=== PATIENT | female | born 1945 | race Caucasian/White ===

== ENCOUNTER 2020-09-29 15:50 | Outpatient (REF) | payer MEDICARE, SELFPAY ==
--- NOTE | 2020-09-29 15:55 | MM_ITS ---
EXAMINATION: MM SCREENING DIGITAL BREAST TOMOSYNTHESIS, BILATERAL CLINICAL INFORMATION: Bilateral invasive ductal cancer status post right lumpectomy 2012 and left lumpectomy 2009. Due for yearly. COMPARISON: Mammography: 09/20/2019, 09/14/2018, 09/12/2017 TECHNIQUE: Digital breast tomosynthesis is performed in both the craniocaudal and mediolateral oblique views along with computer-aided detection (CAD). Synthesized 2D images are generated from the tomosynthesis. Additional exaggerated left CC view is provided. FINDINGS: There are scattered areas of fibroglandular density (ACR BI-RADS breast composition Category b). Parenchymal pattern is similar to prior exams. There is no interval mass or architectural abnormality or abnormal calcifications. Again, left breast is slightly smaller with stable scarring inferior aspect. The right breast has stable nodule upper outer quadrant and a benign heavily calcified mass anterior upper outer right breast. No significant changes from prior studies. MM/MM tomosynthesis screening BI IMPRESSION: No significant changes from prior exams. ASSESSMENT: BI-RADS 2: Benign RECOMMENDATION: Routine annual mammography screening. This patient's information was entered into a reminder system with a target due date for their next mammogram.
== END 2020-09-29 15:51 | disposition home or self-care (01) ==
LOC: HO.MAMMO 15:50
PROVIDERS: PCP Internal Medicine; Visit Provider Surgery
DX: Z12.31 Encounter for screening mammogram for malignant neoplasm of breast (principal)
CPT/HCPCS: 77063; 77067

== ENCOUNTER 2020-11-19 09:29 | Outpatient (REF) | payer MEDICARE, SELFPAY ==
[2020-11-19 10:11] LABS: MANUAL DIFF FLAG NO
[2020-11-19 10:19] LABS: Basophils Percent Auto 0.5 % (0-2); Eosinophils Absolute Auto 0.1 X10*3/uL (0.0-0.4); Hematocrit 45.2 % (37-47); Hemoglobin 14.4 g/dl (12.0-16.0); Imm Gran Abs Auto 0.02 X10*3/uL (0.00-0.03); Imm Gran Pct Auto 0.3 % (0.0-0.4); Lymphocytes Absolute Auto 1.3 X10*3/uL (1.2-4.9); Lymphocytes Percent Auto 16.8 % (20-40); Mean Corpuscular HGB Conc 31.9 g/dl (31.0-35.0); Mean Corpuscular Hemoglobin 30.3 pg (27.0-33.0); Mean Corpuscular Volume 95.2 fL (80-98); Mean Platelet Volume 9.6 fL (9.4-12.3); Monocytes Absolute Auto 0.5 X10*3/uL (0.1-1.2); Monocytes Percent Auto 6.8 % (2-11); Neutrophils Percent Auto 74.6 % (45-73); Platelet Count 347 X10*3/uL (160-400); Red Blood Count 4.75 X10*6/uL (4.20-5.50); Red Cell Distribution Width 11.9 % (11.0-16.0)
[2020-11-19 10:22] LABS: Glucose Urine UA NEG (NEG); Leukocyte Esterase Urine TRACE (NEG); Nitrite Urine NEG (NEG); Specific Gravity - Urine >= 1.030 (1.005-1.025); Urine Blood NEG (NEG); Urine Ketones NEG (NEG); Urine Protein TRACE MG/DL (NEG-TRACE)
[2020-11-19 10:23] LABS: Appearance Urine CLOUDY; Color Urine YELLOW
[2020-11-19 10:41] LABS: Alanine Aminotransferase 12 U/L (0-31); Albumin Level 4.5 g/dL (3.5-5.0); Alkaline Phosphatase 100 U/L (39-117); Anion Gap 15 (12-20); Aspartate Amino Transferase 14 U/L (5-31); Bilirubin Total 0.8 mg/dL (0.0-1.0); Blood Urea Nitrogen 11 mg/dL (9-16); Carbon Dioxide 27 mmol/L (22-29); Chloride 104 mmol/L (96-108); Cholesterol 182 mg/dL; Estimated Glomerular Filt Rate > 60; Glucose Fasting 115 mg/dL (60-99); HDL Cholesterol 53 mg/dL; LDL Cholesterol Calculated 104 mg/dl; Potassium 4.5 mmol/l (3.3-5.1); Sodium 141 mmol/L (135-145); Total Protein 7.5 g/dL (6.5-8.0); Triglycerides 127 mg/dL
[2020-11-19 11:03] LABS: Bacteria Urine 3+ /LPF; RBC Urine 0 /HPF (0); Squamous Epithelial Cell Urine 4+ /LPF; WBC Urine 0-2 /HPF (0-4)
== END 2020-11-19 09:30 | disposition home or self-care (01) ==
LOC: HO.LAB 09:29
PROVIDERS: PCP Internal Medicine; Visit Provider Internal Medicine
DX: R73.01 Impaired fasting glucose (principal); I10 Essential (primary) hypertension; E55.9 Vitamin D deficiency, unspecified; E66.9 Obesity, unspecified; G47.62 Sleep related leg cramps; E78.5 Hyperlipidemia, unspecified
CPT/HCPCS: 36415; 80053; 80061; 81001; 82306; 82550; 84443; 85025; 87086

== ENCOUNTER 2021-03-23 09:35 | Outpatient (REF) | payer MEDICARE, SELFPAY ==
[2021-03-23 10:06] LABS: MANUAL DIFF FLAG NO
[2021-03-23 10:13] LABS: Basophils Absolute Auto 0.1 X10*3/uL (0.0-0.2); Basophils Percent Auto 0.7 % (0-2); Eosinophils Absolute Auto 0.1 X10*3/uL (0.0-0.4); Hematocrit 43.7 % (37-47); Hemoglobin 14.5 g/dl (12.0-16.0); Imm Gran Abs Auto 0.01 X10*3/uL (0.00-0.03); Imm Gran Pct Auto 0.1 % (0.0-0.4); Lymphocytes Absolute Auto 1.5 X10*3/uL (1.2-4.9); Lymphocytes Percent Auto 21.3 % (20-40); Mean Corpuscular HGB Conc 33.2 g/dl (31.0-35.0); Mean Corpuscular Hemoglobin 31.3 pg (27.0-33.0); Mean Corpuscular Volume 94.2 fL (80-98); Mean Platelet Volume 9.5 fL (9.4-12.3); Monocytes Absolute Auto 0.5 X10*3/uL (0.1-1.2); Monocytes Percent Auto 6.5 % (2-11); Neutrophils Absolute Auto 5.1 X10*3/uL (2.0-8.3); Neutrophils Percent Auto 70.4 % (45-73); Platelet Count 351 X10*3/uL (160-400); Red Blood Count 4.64 X10*6/uL (4.20-5.50); Red Cell Distribution Width 12.2 % (11.0-16.0); White Blood Count 7.2 X10*3/uL (4.8-10.8)
[2021-03-23 10:32] LABS: Alanine Aminotransferase 12 U/L (0-31); Albumin Level 4.4 g/dL (3.5-5.0); Alkaline Phosphatase 98 U/L (39-117); Anion Gap 14 (12-20); Aspartate Amino Transferase 17 U/L (5-31); Bilirubin Total 0.7 mg/dL (0.0-1.0); Blood Urea Nitrogen 10 mg/dL (9-16); Calcium 9.9 mg/dL (8.4-10.2); Carbon Dioxide 27 mmol/L (22-29); Chloride 104 mmol/L (96-108); Cholesterol 172 mg/dL; Estimated Glomerular Filt Rate > 60; Glucose Fasting 116 mg/dL (60-99); HDL Cholesterol 50 mg/dL; LDL Cholesterol Calculated 95 mg/dl; Potassium 4.2 mmol/L (3.3-5.1); Sodium 141 mmol/L (135-145); Total Protein 7.4 g/dL (6.5-8.0); Triglycerides 139 mg/dL
[2021-03-23 10:53] LABS: TSH reflex Free T4 1.25 uIU/mL (0.32-4.0); Vitamin D 25-OH Total 112.2 ng/mL (>30)
[2021-03-23 11:09] LABS: Glucose Urine UA NEG (NEG); Leukocyte Esterase Urine NEG (NEG); Nitrite Urine NEG (NEG); PH 6.5 (5.0-8.0); Urine Blood NEG (NEG); Urine Ketones NEG (NEG); Urine Protein NEG (NEG-TRACE)
[2021-03-23 11:11] LABS: Appearance Urine HAZY; Color Urine YELLOW
== END 2021-03-23 09:36 | disposition home or self-care (01) ==
LOC: HO.LAB 09:35
PROVIDERS: PCP Internal Medicine; Visit Provider Internal Medicine
DX: I10 Essential (primary) hypertension (principal); K59.00 Constipation, unspecified; K21.9 Gastro-esophageal reflux disease without esophagitis; E78.00 Pure hypercholesterolemia, unspecified; R73.01 Impaired fasting glucose; G47.62 Sleep related leg cramps; E66.9 Obesity, unspecified; E55.9 Vitamin D deficiency, unspecified
CPT/HCPCS: 36415; 80053; 80061; 81003; 82306; 84443; 85025

== ENCOUNTER → 2021-06-29 10:41 | Outpatient (BNV) | payer MEDICARE, SELFPAY | PROVIDERS: PCP Internal Medicine; Visit Provider Internal Medicine | DX: Z85.3 Personal history of malignant neoplasm of breast (principal) | CPT/HCPCS: 99213; 99214 ==

== ENCOUNTER 2021-07-15 09:43 | Outpatient (REF) | payer MEDICARE, SELFPAY ==
[2021-07-15 10:34] LABS: MANUAL DIFF FLAG NO
[2021-07-15 10:43] LABS: Basophils Percent Auto 0.6 % (0-2); Eosinophils Absolute Auto 0.1 X10*3/uL (0.0-0.4); Hematocrit 42.1 % (37-47); Imm Gran Abs Auto 0.02 X10*3/uL (0.00-0.03); Imm Gran Pct Auto 0.3 % (0.0-0.4); Lymphocytes Absolute Auto 1.3 X10*3/uL (1.2-4.9); Lymphocytes Percent Auto 18.5 % (20-40); Mean Corpuscular HGB Conc 33.3 g/dl (31.0-35.0); Mean Corpuscular Hemoglobin 31.1 pg (27.0-33.0); Mean Corpuscular Volume 93.6 fL (80-98); Mean Platelet Volume 9.5 fL (9.4-12.3); Monocytes Absolute Auto 0.6 X10*3/uL (0.1-1.2); Monocytes Percent Auto 8.1 % (2-11); Neutrophils Absolute Auto 4.8 X10*3/uL (2.0-8.3); Neutrophils Percent Auto 71.5 % (45-73); Platelet Count 334 X10*3/uL (160-400); White Blood Count 6.8 X10*3/uL (4.8-10.8)
[2021-07-15 11:10] LABS: Alanine Aminotransferase 13 U/L (0-31); Albumin Level 4.3 g/dL (3.5-5.0); Alkaline Phosphatase 93 U/L (39-117); Anion Gap 12 (12-20); Aspartate Amino Transferase 18 U/L (5-31); Bilirubin Total 0.8 mg/dL (0.0-1.0); Blood Urea Nitrogen 8 mg/dL (9-16); Carbon Dioxide 26 mmol/L (22-29); Chloride 106 mmol/L (96-108); Cholesterol 149 mg/dL; Estimated Glomerular Filt Rate > 60; Glucose Fasting 113 mg/dL (60-99); HDL Cholesterol 48 mg/dL; LDL Cholesterol Calculated 78 mg/dl; Potassium 4.2 mmol/L (3.3-5.1); Sodium 140 mmol/L (135-145); Triglycerides 116 mg/dL
[2021-07-15 11:30] LABS: Glucose Urine UA NEG (NEG); Leukocyte Esterase Urine TRACE (NEG); Nitrite Urine NEG (NEG); Specific Gravity - Urine >= 1.030 (1.005-1.025); UACC Culture Trigger YES; Urine Blood NEG (NEG); Urine Ketones NEG (NEG); Urine Protein 1+ MG/DL (NEG-TRACE)
[2021-07-15 11:31] LABS: TSH reflex Free T4 0.98 uIU/mL (0.32-4.0); Vitamin D 25-OH Total 50.6 ng/mL (>30)
[2021-07-15 11:34] LABS: Appearance Urine CLOUDY; Color Urine YELLOW
[2021-07-15 12:05] LABS: Bacteria Urine 2+ /LPF; RBC Urine 0-2 /HPF (0); Squamous Epithelial Cell Urine 4+ /LPF
== END 2021-07-15 09:44 | disposition home or self-care (01) ==
LOC: HO.LAB 09:43
PROVIDERS: PCP Internal Medicine; Visit Provider Internal Medicine
DX: I10 Essential (primary) hypertension (principal); K21.9 Gastro-esophageal reflux disease without esophagitis; E78.00 Pure hypercholesterolemia, unspecified; R73.01 Impaired fasting glucose; E66.9 Obesity, unspecified; E55.9 Vitamin D deficiency, unspecified
CPT/HCPCS: 36415; 80053; 80061; 81001; 82306; 84443; 85025; 87086

== ENCOUNTER 2021-10-12 11:43 | Outpatient (REF) | payer MEDICARE, SELFPAY ==
--- NOTE | ~2021-10-12 | MM_ITS ---
EXAMINATION: MM SCREENING DIGITAL BREAST TOMOSYNTHESIS, BILATERAL CLINICAL INFORMATION: Screening. Asymptomatic. COMPARISON: Mammography: September 29, 2020 and studies dating back to August 24, 2012 TECHNIQUE: Digital breast tomosynthesis is performed in both the craniocaudal and mediolateral oblique views along with computer-aided detection (CAD). Synthesized 2D images are generated from the tomosynthesis. FINDINGS: There are scattered areas of fibroglandular density (ACR BI-RADS breast composition Category b). There is a stable parenchymal pattern bilaterally without evidence of new abnormal dominant mass or suspicious grouping of calcifications. Bilateral postsurgical change is noted. MM/MM tomosynthesis screening BI IMPRESSION: There are no significant changes from prior study. ASSESSMENT: BI-RADS 2: Benign RECOMMENDATION: Routine annual mammography screening. This patient's information was entered into a reminder system with a target due date for their next mammogram.
== END 2021-10-12 11:44 | disposition home or self-care (01) ==
LOC: HO.MAMMO 11:43
PROVIDERS: PCP Internal Medicine; Visit Provider Internal Medicine
DX: Z12.31 Encounter for screening mammogram for malignant neoplasm of breast (principal)
CPT/HCPCS: 77063; 77067

== ENCOUNTER 2021-11-17 10:33 | Outpatient (REF) | payer MEDICARE, SELFPAY ==
[2021-11-17 10:56] LABS: MANUAL DIFF FLAG NO
[2021-11-17 12:04] LABS: Basophils Absolute Auto 0.1 X10*3/uL (0.0-0.2); Basophils Percent Auto 0.6 % (0-2); Eosinophils Absolute Auto 0.1 X10*3/uL (0.0-0.4); Eosinophils Percent Auto 1.1 % (0-4); Hematocrit 45.4 % (37.0-47.0); Hemoglobin 14.7 g/dl (12.0-16.0); Imm Gran Abs Auto 0.03 X10*3/uL (0.00-0.03); Imm Gran Pct Auto 0.4 % (0.0-0.4); Lymphocytes Absolute Auto 1.6 X10*3/uL (1.2-4.9); Mean Corpuscular HGB Conc 32.4 g/dl (31.0-35.0); Mean Corpuscular Hemoglobin 30.6 pg (27.0-33.0); Mean Corpuscular Volume 94.4 fL (80.0-98.0); Mean Platelet Volume 10.1 fL (9.4-12.3); Monocytes Absolute Auto 0.5 X10*3/uL (0.1-1.2); Monocytes Percent Auto 6.6 % (2-11); Neutrophils Absolute Auto 5.6 x10*3/uL (2.0-8.3); Neutrophils Percent Auto 71.3 % (45-73); Platelet Count 343 X10*3/uL (160-400); Red Blood Count 4.81 X10*6/uL (4.20-5.50); Red Cell Distribution Width 12.2 % (11.0-16.0); White Blood Count 7.9 X10*3/uL (4.8-10.8)
[2021-11-17 12:12] LABS: Estimated Average Glucose 111 mg/dL; Hemoglobin A1c % 5.5 %
[2021-11-17 12:19] LABS: Appearance Urine HAZY; Color Urine YELLOW; Glucose Urine UA NEG (NEG); Leukocyte Esterase Urine NEG (NEG); Nitrite Urine NEG (NEG); UACC Culture Trigger NO; Urine Blood TRACE (NEG); Urine Ketones NEG (NEG); Urine Protein NEG (NEG-TRACE)
[2021-11-17 12:29] LABS: Alanine Aminotransferase 13 U/L (0-31); Albumin Level 4.4 g/dL (3.5-5.0); Alkaline Phosphatase 96 U/L (39-117); Anion Gap 13 (12-20); Aspartate Amino Transferase 14 U/L (5-31); Bilirubin Total 0.7 mg/dL (0.0-1.0); Blood Urea Nitrogen 8 mg/dL (9-16); Carbon Dioxide 25 mmol/L (22-29); Chloride 106 mmol/L (96-108); Cholesterol 189 mg/dL; Estimated Glomerular Filt Rate > 60; Glucose Fasting 110 mg/dL (60-99); HDL Cholesterol 52 mg/dL; LDL Cholesterol Calculated 102 mg/dl; Sodium 140 mmol/L (135-145); Total Protein 7.5 g/dL (6.5-8.0); Triglycerides 175 mg/dL
[2021-11-17 12:32] LABS: Bacteria Urine 2+ /LPF; RBC Urine 0-2 /HPF (0); Squamous Epithelial Cell Urine 3+ /LPF; WBC Urine 0 /HPF (0-4)
[2021-11-17 12:51] LABS: TSH reflex Free T4 1.26 uIU/mL (0.32-4.0); Vitamin D 25-OH Total 45.3 ng/mL (>30)
== END 2021-11-17 10:34 | disposition home or self-care (01) ==
LOC: HO.LAB 10:33
PROVIDERS: PCP Internal Medicine; Visit Provider Internal Medicine
DX: E78.00 Pure hypercholesterolemia, unspecified (principal); E55.9 Vitamin D deficiency, unspecified; I10 Essential (primary) hypertension; R73.01 Impaired fasting glucose
CPT/HCPCS: 36415; 80053; 80061; 81001; 82306; 83036; 84443; 85025

== ENCOUNTER 2022-03-11 10:29 | Outpatient (REF) | payer MEDICARE, SELFPAY ==
[2022-03-11 10:58] LABS: MANUAL DIFF FLAG NO
[2022-03-11 12:08] LABS: Appearance Urine HAZY; Color Urine YELLOW; Glucose Urine UA NEG (NEG); Leukocyte Esterase Urine NEG (NEG); Nitrite Urine NEG (NEG); PH 6.5 (5.0-8.0); Urine Blood NEG (NEG); Urine Ketones 15 MG/DL (NEG); Urine Protein NEG (NEG-TRACE)
[2022-03-11 12:22] LABS: Basophils Absolute Auto 0.1 X10*3/uL (0.0-0.2); Basophils Percent Auto 0.7 % (0-2); Eosinophils Percent Auto 0.4 % (0-4); Hematocrit 43.9 % (37.0-47.0); Hemoglobin 14.3 g/dl (12.0-16.0); Imm Gran Abs Auto 0.03 X10*3/uL (0.00-0.03); Imm Gran Pct Auto 0.4 % (0.0-0.4); Lymphocytes Absolute Auto 1.3 X10*3/uL (1.2-4.9); Lymphocytes Percent Auto 17.2 % (20-40); Mean Corpuscular HGB Conc 32.6 g/dl (31.0-35.0); Mean Corpuscular Hemoglobin 31.2 pg (27.0-33.0); Mean Corpuscular Volume 95.6 fL (80.0-98.0); Mean Platelet Volume 9.9 fL (9.4-12.3); Monocytes Absolute Auto 0.5 X10*3/uL (0.1-1.2); Monocytes Percent Auto 6.8 % (2-11); Neutrophils Absolute Auto 5.5 x10*3/uL (2.0-8.3); Neutrophils Percent Auto 74.5 % (45-73); Platelet Count 323 X10*3/uL (160-400); Red Blood Count 4.59 X10*6/uL (4.20-5.50); Red Cell Distribution Width 12.4 % (11.0-16.0); White Blood Count 7.3 X10*3/uL (4.8-10.8)
[2022-03-11 12:45] LABS: Alanine Aminotransferase 9 U/L (0-31); Albumin Level 4.3 g/dL (3.5-5.0); Alkaline Phosphatase 91 U/L (39-117); Anion Gap 15 (12-20); Aspartate Amino Transferase 17 U/L (5-31); Bilirubin Total 0.8 mg/dL (0.0-1.0); Blood Urea Nitrogen 8 mg/dL (9-16); Calcium 10.3 mg/dL (8.4-10.2); Carbon Dioxide 24 mmol/L (22-29); Chloride 104 mmol/L (96-108); Cholesterol 176 mg/dL; Estimated Glomerular Filt Rate > 60; Glucose Fasting 108 mg/dL (60-99); HDL Cholesterol 54 mg/dL; LDL Cholesterol Calculated 101 mg/dl; Potassium 4.2 mmol/L (3.3-5.1); Sodium 139 mmol/L (135-145); Total Protein 7.4 g/dL (6.5-8.0); Triglycerides 108 mg/dL
[2022-03-11 13:01] LABS: Estimated Average Glucose 111 mg/dL; Hemoglobin A1c % 5.5 %
[2022-03-11 13:06] LABS: TSH reflex Free T4 1.15 uIU/mL (0.32-4.0)
== END 2022-03-11 10:30 | disposition home or self-care (01) ==
LOC: HO.LAB 10:29
PROVIDERS: PCP Internal Medicine; Visit Provider Internal Medicine
DX: E78.00 Pure hypercholesterolemia, unspecified (principal); R73.01 Impaired fasting glucose; I10 Essential (primary) hypertension
CPT/HCPCS: 36415; 80053; 80061; 81003; 83036; 84443; 85025

== ENCOUNTER 2022-05-03 10:28 | Outpatient (REF) | payer MEDICARE, SELFPAY ==
--- NOTE | 2022-05-03 16:27 | MHC.AU.ANR ---
Adult Audiological Evaluation Date of Visit: 05/03/22 Reason for Appointment: Audiological evaluation due to concern for decreased hearing. Ms. Nance was previously diagnosed with hearing loss at our clinic in 2014. Hearing aids were recommended, but she was not ready to pursue hearing aids at that time. She feels her hearing has gradually been decreasing. She notes difficulties following conversations, difficulties hearing in the presence of background noise, and notes that she has to turn the TV volume up. It was noted that throughout today visit Ms. Nance asked for repetition many times. She seemed to be struggling to hear and understand speech even in a quiet environment, though it is noted that visual cues were obscured by mask use. Made sure to speak slowly and at an elevated volume throughout the visit to assure Ms. Nance could follow. Does patient feel they have a hearing loss?: Yes If Yes, Which Ear?: Both Ears Has hearing been tested previously?: Yes Previous [place] [facility] [place] Moderate dropping to severe sensorineural hearing loss bilaterally, with 96% speech understanding in the right ear and 92% speech understanding in the left ear in a quiet environment at a comfortable listening level of 85 dBHL. Binaural [id number] testing indicated a decrease in speech understanding to 52%. Hearing Handicap Inventory: HHIE SCORE: 16 Based on HHIE score, patient has: Mild to moderate perceived hearing handicap Ear History: Family History of Hearing Loss?: Yes: Parents Medical History: Medical History: Cancer, High Blood Pressure, Breast cancer treated with a lumpectomy and radiation. Allergies: penicillin, codeine Medication List: Famotidine, lisinopril, amlodipine, simvastatin, vitamin D, lorazepam Otoscopy: Right Ear: Dry, hard wax partially occluding deep in canal. Attempted but could not fully remove. Left Ear: Unremarkable Tympanometry: Tympanometry performed due to: To assess integrity of the middle ear system Right Ear: Reduced Middle Ear Compliance (Type As) Left Ear: Normal Middle Ear System (Type A) Hearing Evaluation: Transducer(s) Used: Insert Earphones Bone Conduction Method: Conventional Audiometry Stimuli Used: Pure Tones Right Ear: Description of Hearing: Mild sloping to severe sensorineural hearing loss from 250-8000 Hz. Left Ear: Description of Hearing: Moderate sloping to severe sensorineural hearing loss from 250-8000 Hz. Speech Recognition Threshold (SRT): Method Used: Monitored Live Voice Stimuli Used: Spondee Words Right Ear: 55 dBHL Left Ear: 60 dBHL Word Discrimination: Method: Recorded Lists Word Lists Used: NU-6 Right Ear: 64% at 85 dBHL Left Ear: 80% at 90 dBHL Comparison: Compared to the most recent evaluation: Word discrimination scores have decreased bilaterally. Slight decrease in thresholds by 5-10 dBHL across the frequency range bilaterally. Interpretation of Results: Today's evaluation indicates a bilateral, moderate to severe sensorineural hearing loss. Hearing loss of this degree is expected to significantly impact communication in most environments, including in quiet listening situations. Ms. Nance is expected to have significant difficulties following conversation in adverse listening environments, such as in the presence of background noise, in group settings, and when listening at a distance. Word discrimination scores today have decreased from 96% at 85 dBHL in the right ear to 64% at 85 dBHL, and 92% at 85 dBHL to 80% in the left ear. This decrease in word discrimination may be due to auditory deprivation, which can happen if auditory systems with hearing loss are not receiving adequate amplification for extended periods of time. The auditory system becomes lazy and ability to understand speech, even with enough volume, declines. A pair of demo hearing aids was programmed for Ms. Nance's hearing loss today and given to her to use throughout counseling of her test results today. Though she noted the sounded loud and her voice sounded strange, she was following the conversation without asking for repetition. She seemed to have a noticeable improvement in her hearing during just the 20 minutes she had the hearing aids on today. Ms. Nance would likely notice a significant benefit in consistent use of binaural hearing aids. Recommendations: Audiological re-evaluation in one year. Trial with amplification is recommended. Discussed results and hearing aid recommendations at length today. Highly recommend Ms. Nance pursue hearing aids. Recommend that she contact her health insurance company to determine if she has hearing aid benefit and if she has to go to a speech hearing aid clinic to use any benefit. She was welcomed to return to further discuss hearing aids if she decides she would like to pursue then through our clinic. Recommend use of ear wax removal/softening drops (i.e. EarWax , Debrox) in the right ear to aid in removal of current wax build-up. Diagnosis: Primary Diagnosis: H90.3 Bilateral Sensorineural Hearing Loss Secondary Diagnosis: H61.21 Impacted Cerumen, Right Ear Services Performed: Services Performed: Comprehensive Audiological Evaluation (CPT 46543) Tympanometry (CPT 23190) Signature: Provider: Nabeel Fulton, CCC-A
--- NOTE | 2022-05-03 16:30 | MHC.AU.ANR ---
Adult Audiological Evaluation Date of Visit: 05/03/22 Reason for Appointment: Audiological evaluation due to concern for decreased hearing. Ms. Nance was previously diagnosed with hearing loss at our clinic in 2014. Hearing aids were recommended, but she was not ready to pursue hearing aids at that time. She feels her hearing has gradually been decreasing. She notes difficulties following conversations, difficulties hearing in the presence of background noise, and notes that she has to turn the TV volume up. It was noted that throughout today visit Ms. Nance asked for repetition many times. She seemed to be struggling to hear and understand speech even in a quiet environment, though it is noted that visual cues were obscured by mask use. Made sure to speak slowly and at an elevated volume throughout the visit to assure Ms. Nance could follow. Does patient feel they have a hearing loss?: Yes If Yes, Which Ear?: Both Ears Has hearing been tested previously?: Yes Previous Hearing Test Results: [facility], 07/23/2015- Moderate dropping to severe sensorineural hearing loss bilaterally, with 96% speech understanding in the right ear and 92% speech understanding in the left ear in a quiet environment at a comfortable listening level of 85 dBHL. Binaural [id number] testing indicated a decrease in speech understanding to 52%. Hearing Handicap Inventory: HHIE SCORE: 16 Based on HHIE score, patient has: Mild to moderate perceived hearing handicap Ear History: Family History of Hearing Loss?: Yes: Parents Medical History: Medical History: Cancer, High Blood Pressure, Breast cancer treated with a lumpectomy and radiation. Allergies: penicillin, codeine Medication List: Famotidine, lisinopril, amlodipine, simvastatin, vitamin D, lorazepam Otoscopy: Right Ear: Dry, hard wax partially occluding deep in canal. Attempted but could not fully remove. Left Ear: Unremarkable Tympanometry: Tympanometry performed due to: To assess integrity of the middle ear system Right Ear: Reduced Middle Ear Compliance (Type As) Left Ear: Normal Middle Ear System (Type A) Hearing Evaluation: Transducer(s) Used: Insert Earphones, Bone Conduction Method: Conventional Audiometry Stimuli Used: Pure Tones Right Ear: Description of Hearing: Mild sloping to severe sensorineural hearing loss from 250-8000 Hz. Left Ear: Description of Hearing: Moderate sloping to severe sensorineural hearing loss from 250-8000 Hz. Speech Recognition Threshold (SRT): Method Used: Monitored Live Voice Stimuli Used: Spondee Words Right Ear: 55 dBHL Left Ear: 60 dBHL Word Discrimination: Method: Recorded Lists Word Lists Used: NU-6 Right Ear: 64% at 85 dBHL Left Ear: 80% at 90 dBHL Comparison: Compared to the most recent evaluation: Word discrimination scores have decreased bilaterally. Slight decrease in thresholds by 5-10 dBHL across the frequency range bilaterally. Interpretation of Results: Today's evaluation indicates a bilateral, moderate to severe sensorineural hearing loss. Hearing loss of this degree is expected to significantly impact communication in most environments, including in quiet listening situations. Ms. Nance is expected to have significant difficulties following conversation in adverse listening environments, such as in the presence of background noise, in group settings, and when listening at a distance. Word discrimination scores today have decreased from 96% at 85 dBHL in the right ear to 64% at 85 dBHL, and 92% at 85 dBHL to 80% in the left ear. This decrease in word discrimination may be due to auditory deprivation, which can happen if auditory systems with hearing loss are not receiving adequate amplification for extended periods of time. The auditory system becomes lazy and ability to understand speech, even with enough volume, declines. A pair of demo hearing aids was programmed for Ms. Nance's hearing loss today and given to her to use throughout counseling of her test results today. Though she noted they sounded loud and her voice sounded strange, she was following the conversation without asking for repetition. She seemed to have a noticeable improvement in her hearing during just the 20 minutes she had the hearing aids on today. Ms. Nance would likely notice a significant benefit in consistent use of binaural hearing aids. Recommendations: Audiological re-evaluation in one year. Trial with amplification is recommended. Discussed results and hearing aid recommendations at length today. Highly recommend Ms. Nance pursue hearing aids. Recommend that she contact her health insurance company to determine if she has hearing aid benefit and if she has to go to a certain hearing aid clinic to use any benefit. She was welcomed to return to further discuss hearing aids if she decides she would like to pursue them through our clinic. Recommend use of ear wax removal/softening drops (i.e. EarWax , Debrox) in the right ear to aid in removal of current wax build-up. Diagnosis: Primary Diagnosis: H90.3 Bilateral Sensorineural Hearing Loss Secondary Diagnosis: H61.21 Impacted Cerumen, Right Ear Services Performed: Services Performed: Comprehensive Audiological Evaluation (CPT 47648) Tympanometry (CPT 12964) Signature: Provider: Nabeel Fulton, CCC-A
== END 2022-05-03 10:29 | disposition home or self-care (01) ==
LOC: HO.SH 10:28
PROVIDERS: Visit Provider Internal Medicine
DX: Z01.118 Encounter for examination of ears and hearing with other abnormal findings (principal); H90.3 Sensorineural hearing loss, bilateral; H61.21 Impacted cerumen, right ear
CPT/HCPCS: 92557; 92567

== ENCOUNTER 2022-07-14 11:07 | Outpatient (REF) | payer MEDICARE, SELFPAY ==
[2022-07-14 11:28] LABS: MANUAL DIFF FLAG NO
[2022-07-14 12:19] LABS: Basophils Absolute Auto 0.1 X10*3/uL (0.0-0.2); Eosinophils Absolute Auto 0.1 X10*3/uL (0.0-0.4); Eosinophils Percent Auto 0.9 % (0-4); Hematocrit 45.4 % (37.0-47.0); Hemoglobin 14.9 g/dl (12.0-16.0); Imm Gran Abs Auto 0.02 X10*3/uL (0.00-0.03); Imm Gran Pct Auto 0.3 % (0.0-0.4); Lymphocytes Absolute Auto 1.2 X10*3/uL (1.2-4.9); Lymphocytes Percent Auto 21.2 % (20-40); Mean Corpuscular HGB Conc 32.8 g/dl (31.0-35.0); Mean Corpuscular Hemoglobin 30.8 pg (27.0-33.0); Mean Platelet Volume 9.6 fL (9.4-12.3); Monocytes Absolute Auto 0.4 X10*3/uL (0.1-1.2); Monocytes Percent Auto 7.6 % (2-11); Platelet Count 328 X10*3/uL (160-400); Red Blood Count 4.83 X10*6/uL (4.20-5.50); Red Cell Distribution Width 12.2 % (11.0-16.0); White Blood Count 5.8 X10*3/uL (4.8-10.8)
[2022-07-14 12:29] LABS: Estimated Average Glucose 105 mg/dL; Hemoglobin A1c % 5.3 %
[2022-07-14 12:44] LABS: Alanine Aminotransferase 11 U/L (0-31); Albumin Level 4.4 g/dL (3.5-5.0); Alkaline Phosphatase 82 U/L (39-117); Anion Gap 16 (12-20); Aspartate Amino Transferase 15 U/L (5-31); Bilirubin Total 0.6 mg/dL (0.0-1.0); Blood Urea Nitrogen 10 mg/dL (9-16); Calcium 9.9 mg/dL (8.4-10.2); Carbon Dioxide 25 mmol/L (22-29); Chloride 105 mmol/L (96-108); Cholesterol 194 mg/dL; Estimated Glomerular Filt Rate > 60; Glucose Fasting 115 mg/dL (60-99); HDL Cholesterol 52 mg/dL; LDL Cholesterol Calculated 113 mg/dl; Potassium 4.2 mmol/L (3.3-5.1); Sodium 142 mmol/L (135-145); Total Protein 7.6 g/dL (6.5-8.0); Triglycerides 146 mg/dL
[2022-07-14 13:04] LABS: Vitamin D 25-OH Total 42.9 ng/mL (>30)
== END 2022-07-14 11:08 | disposition home or self-care (01) ==
LOC: HO.LAB 11:07
PROVIDERS: PCP Internal Medicine; Visit Provider Internal Medicine
DX: I10 Essential (primary) hypertension (principal); E55.9 Vitamin D deficiency, unspecified; E78.00 Pure hypercholesterolemia, unspecified; R73.01 Impaired fasting glucose
CPT/HCPCS: 36415; 80053; 80061; 82306; 83036; 84443; 85025

== ENCOUNTER 2022-10-21 10:08 | Outpatient (REF) | payer MEDICARE, SELFPAY ==
--- NOTE | ~2022-10-21 | MM_ITS ---
EXAMINATION: MM SCREENING DIGITAL BREAST TOMOSYNTHESIS, BILATERAL CLINICAL INFORMATION: Screening. Asymptomatic. Bilateral IDC status post right lumpectomy, 2012; and left lumpectomy, 2009. Family history breast cancer, daughter. COMPARISON: Mammography: 10/12/2021, 09/29/2020, 09/20/2019, 09/14/2018 TECHNIQUE: Digital breast tomosynthesis is performed in both the craniocaudal and mediolateral oblique views along with computer-aided detection (CAD). Synthesized 2D images are generated from the tomosynthesis. FINDINGS: There are scattered areas of fibroglandular density (ACR BI-RADS breast composition Category b). Mammography parenchymal pattern is similar to prior exams and there is no developing density or interval mass or architectural abnormality or abnormal calcifications. Two nodules right breast mid upper outer quadrant are stable as is a heavily calcified nodule anterior upper outer right breast. Minor scarring central outer left breast stable. The axilla are unremarkable. No significant changes. MM/MM tomosynthesis screening BI IMPRESSION: No significant changes from prior exams. ASSESSMENT: BI-RADS 2: Benign RECOMMENDATION: Routine annual mammography screening. This patient's information was entered into a reminder system with a target due date for their next mammogram.
== END 2022-10-21 10:09 | disposition home or self-care (01) ==
LOC: HO.MAMMO 10:08
PROVIDERS: PCP Internal Medicine; Visit Provider Internal Medicine
DX: Z12.31 Encounter for screening mammogram for malignant neoplasm of breast (principal)
CPT/HCPCS: 77063; 77067

== ENCOUNTER 2022-12-06 10:38 | Outpatient (REF) | payer MEDICARE, SELFPAY ==
[2022-12-06 10:57] LABS: MANUAL DIFF FLAG NO
[2022-12-06 11:14] LABS: Basophils Percent Auto 0.5 % (0-2); Hematocrit 42.8 % (37.0-47.0); Hemoglobin 14.3 g/dl (12.0-16.0); Imm Gran Abs Auto 0.02 X10*3/uL (0.00-0.03); Imm Gran Pct Auto 0.3 % (0.0-0.4); Lymphocytes Absolute Auto 1.5 X10*3/uL (1.2-4.9); Lymphocytes Percent Auto 24.8 % (20-40); Mean Corpuscular HGB Conc 33.4 g/dl (31.0-35.0); Mean Corpuscular Hemoglobin 31.4 pg (27.0-33.0); Mean Corpuscular Volume 93.9 fL (80.0-98.0); Mean Platelet Volume 9.3 fL (9.4-12.3); Monocytes Absolute Auto 0.5 X10*3/uL (0.1-1.2); Monocytes Percent Auto 8.1 % (2-11); Neutrophils Percent Auto 66.3 % (45-73); Platelet Count 323 X10*3/uL (160-400); Red Blood Count 4.56 X10*6/uL (4.20-5.50); Red Cell Distribution Width 11.9 % (11.0-16.0)
[2022-12-06 11:29] LABS: Appearance Urine Cloudy; Color Urine Yellow; Glucose Urine UA Negative (Negative); Leukocyte Esterase Urine Trace (Negative); Nitrite Urine Negative (Negative); PH 7.5 (5.0-9.0); UMIC TRIGGER UACC YES; Urine Blood Moderate (2+) (Negative); Urine Ketones Negative (Negative); Urine Protein Negative (Neg-Trace)
[2022-12-06 11:32] LABS: Bacteria Urine 2+ (None Seen); Hyaline Casts Urine 0-2 /LPF (0-2); RBC Urine >20 /HPF (0-2); Squamous Epithelial Cell Urine >20 /HPF (0-2); WBC Urine 0-5 /HPF (0-5)
[2022-12-06 12:53] LABS: Alanine Aminotransferase 11 U/L (0-31); Albumin Level 4.2 g/dL (3.5-5.0); Alkaline Phosphatase 91 U/L (39-117); Anion Gap 16 (12-20); Aspartate Amino Transferase 16 U/L (5-31); Bilirubin Total 0.5 mg/dL (0.0-1.0); Blood Urea Nitrogen 7 mg/dL (9-16); Calcium 9.7 mg/dL (8.4-10.2); Carbon Dioxide 25 mmol/L (22-29); Chloride 103 mmol/L (96-108); Cholesterol 162 mg/dL; Estimated Glomerular Filt Rate > 60; Glucose Fasting 123 mg/dL (60-99); HDL Cholesterol 48 mg/dL; LDL Cholesterol Calculated 90 mg/dl; Potassium 4.1 mmol/L (3.3-5.1); Sodium 140 mmol/L (135-145); Total Protein 7.2 g/dL (6.5-8.0); Triglycerides 122 mg/dL
[2022-12-06 13:11] LABS: TSH reflex Free T4 1.12 uIU/mL (0.32-4.0); Vitamin D 25-OH Total 40.4 ng/mL (>30)
== END 2022-12-06 10:39 | disposition home or self-care (01) ==
LOC: HO.LAB 10:38
PROVIDERS: PCP Internal Medicine; Visit Provider Internal Medicine
DX: I10 Essential (primary) hypertension (principal); E55.9 Vitamin D deficiency, unspecified; E78.00 Pure hypercholesterolemia, unspecified
CPT/HCPCS: 36415; 80053; 80061; 81001; 82306; 84443; 85025

== ENCOUNTER 2023-02-08 16:01 | Emergency (ER) | payer MEDICARE, SELFPAY ==
--- NOTE | ~2023-02-08 | CT_ITS ---
EXAMINATION: CT ABDOMEN AND PELVIS WITHOUT CONTRAST CLINICAL INFORMATION: Right inguinal pain. COMPARISON: CT abdomen/pelvis 04/02/2013. TECHNIQUE: Multidetector volumetric imaging was performed from the superior aspect of the liver through the pubic symphysis. Sagittal and coronal reformatted images were obtained on the technologist's workstation. This CT examination was performed using dose optimization techniques as appropriate, variously including the following: *Automated exposure control *Adjustment of mA and/or kV according to patient size (this includes techniques or standardized protocols for targeted exams where dose is matched to indication/reason for exam; i.e. extremities or head) *Use of iterative reconstruction technique DLP: 543 mGy-cm FINDINGS: LUNG BASES: There is a 3 mm pulmonary nodule anterior to the right minor fissure (4:4). No focal consolidation or pleural effusion. Partially imaged coronary artery calcifications. Nonspecific incompletely characterized soft tissue nodule in the right breast measuring 0.9 cm (3:3). LIVER, GALLBLADDER, AND BILIARY TREE: The liver is normal in size, shape and attenuation. No focal liver lesion noted in this limited noncontrast examination. Limited evaluation of the gallbladder due to motion with luminal distention of multiple hyperattenuating calculi. No significant wall thickening or pericholecystic fat stranding. No biliary duct dilatation. PANCREAS: Limited noncontrast examination without significant abnormality. SPLEEN: Limited noncontrast examination, unremarkable. ADRENAL GLANDS: No adrenal mass or nodule. KIDNEYS AND URETERS: Limited noncontrast examination. No nephrolithiasis or hydronephrosis. No perinephric fat stranding. BLADDER: Unremarkable. GASTROINTESTINAL TRACT: Small hiatal hernia. The stomach and the small bowel are nondilated. Normal appendix. Colonic diverticulosis. No pericolonic inflammatory changes to suspect acute diverticulitis or colitis. No bowel obstruction. ABDOMINAL WALL: Small fat-containing umbilical hernia. LYMPH NODES: No pathologically enlarged lymph nodes. VASCULAR: Limited noncontrast examination, catheter secured disease, normal caliber of the abdominal aorta. PELVIC VISCERA: Findings suggesting tricompartmental pelvic descent. The uterus is enlarged with multiple masses, some of which are partially calcified, statistically likely to represent fibroids, also present on the study from 2012. The endometrial canal is not well delineated in the absence of IV contrast. No free fluid. OSSEOUS STRUCTURES: No acute or aggressive appearing osseous abnormalities. Degenerative changes of the spine. Prominent subchondral degenerative cystic changes in the right acetabulum. CT/CT abdomen pelvis wo IV con IMPRESSION: 1. The gallbladder is suboptimally assessed due to motion with numerous calculi and luminal distention but no significant pericholecystic fat stranding, if deemed appropriate correlation with a right upper quadrant ultrasound could be obtained. 2. Diverticulosis but no evidence of acute diverticulitis. 3. Enlarged uterus with multiple masses, statistically likely to represent fibroids. The endometrial canal is not well delineated in the absence of IV contrast. If indicated, correlation with a pelvic ultrasound could be obtained. 4. Incompletely characterized 0.9 cm soft tissue nodule in the right breast. If the patient is due, correlation with mammography is recommended. 5. There is a 3 mm pulmonary nodule in the right lung. Assuming patient has no history of malignancy, recommend follow-up per Fleischner Society recommendations. According to the UPDATED 2017 Fleischner Society recommendations, the advised followup imaging for solid nodules < 6 mm is: LOW RISK PATIENT: No routine follow up. HIGH RISK PATIENT: Optional CT at 12 months.
--- NOTE | 2023-02-08 16:27 | ED_ITS ---
HPI - General Adult General Chief complaint: Abdominal Pain <WILL Griffith - Last Filed: 02/08/23 16:31> Stated complaint: trouble moving on Lower R thigh x 3 days <WILL Griffith - Last Filed: 02/08/23 16:31> Time Seen by Provider: 02/08/23 19:17 <WILL Griffith - Last Filed: 02/08/23 16:31> Source: patient, family (daughter), RN notes reviewed and old records reviewed <Brock Edwards - Last Filed: 02/11/23 02:00> Mode of arrival: ambulatory <Brock Edwards - Last Filed: 02/11/23 02:00> Limitations: no limitations <Brock Edwards - Last Filed: 02/11/23 02:00> History of Present Illness HPI narrative: 77-year-old female with past medical history significant for depression, anxiety, peripheral vascular disease, leg cramps, constipation, GERD, hyperlipidemia, hypertension presents for evaluation abdominal pain. Patient reports right lower abdominal pain for the last week. She reports some degree of constipation but had a small bowel movement earlier this morning. She has not noticed any black or bloody stool. Denies any nausea, vomiting. The pain radiates towards her right leg and right groin. Denies any abnormal vaginal bleeding or discharge She states that her pain comes and goes and is described as 10 <Brock Edwards - Last Filed: 02/11/23 02:00> Related Data Home medications: Previous Rx's Medication Instructions Recorded LIGHTWEIGHT ROLLATOR #1 ea 07/21/21 cholecalciferol (vitamin D3) 25 25 mcg PO DAILY 90 days #90 caps 07/22/22 mcg (1,000 unit) capsule amlodipine 10 mg tablet 10 mg PO DAILY 90 days #90 tabs 11/15/22 famotidine 20 mg tablet 20 mg PO BID 90 days #180 tabs 11/15/22 lisinopril 40 mg tablet 40 mg PO DAILY 90 days #90 tabs 12/09/22 simvastatin 20 mg tablet 20 mg PO BEDTIME 90 days #90 tabs 12/09/22 magnesium citrate 300 ml PO DAILY #296 mL 02/08/23 polyethylene glycol 3350 17 gram 17 g PO DAILY #14 ea 02/08/23 oral powder packet (Miralax) tramadol 50 mg tablet 50 mg PO TID PRN severe pain 02/08/23 (scale score 7-10) #12 tabs lorazepam 0.5 mg tablet 0.5 mg PO TID PRN anxiety 30 days 02/10/23 #90 tabs <WILL Griffith - Last Filed: 02/08/23 16:31> Allergies/adverse reactions: Allergies Allergy/AdvReac Type Severity Reaction Status Date / Time Penicillins Allergy Mild HIVES Verified 02/08/23 16:28 codeine Allergy Unknown nausea Verified 02/08/23 16:28 <WILL Griffith - Last Filed: 02/08/23 16:31> Review of Systems Constitutional: Constitutional: Reports as per HPI, Denies chills, Denies fatigue, Denies fever(s) and Denies headache(s) <Brock Edwards - Last Filed: 02/11/23 02:00> ENT: Denies headache(s) <Brock Edwards - Last Filed: 02/11/23 02:00> Cardiovascular: Cardiovascular: Denies chest pain and Denies dyspnea <Brock Edwards - Last Filed: 02/11/23 02:00> Respiratory: Respiratory: Denies cough and Denies dyspnea <Brock Edwards - Last Filed: 02/11/23 02:00> Gastrointestinal: Gastrointestinal: Denies vomiting <Brock Edwards - Last Filed: 02/11/23 02:00> Genitourinary: Genitourinary: Denies dysuria <Brock Edwards - Last Filed: 02/11/23 02:00> Neurologic: Denies headache(s) and Denies focal weakness <Brock Edwards - Last Filed: 02/11/23 02:00> Endocrine: Endocrine: Denies fatigue <Brock Edwards - Last Filed: 02/11/23 02:00> [facility] Past Medical History Medical History: Medical History Allergic rhinitis Anxiety Benign essential hypertension Constipation Depression GERD without esophagitis Impaired fasting glucose Nocturnal leg cramps Obesity (BMI 30-39.9) Pure hypercholesterolemia Venous insufficiency of both lower extremities Vitamin D deficiency <WILL Griffith - Last Filed: 02/08/23 16:31> Surgical History: Surgical History H/O lumpectomy History of colonoscopy History of lumpectomy of right breast <WILL Griffith - Last Filed: 02/08/23 16:31> Family History Family History: Family History Father Hypertension Stroke Mother Stroke Hypertension <WILL Griffith - Last Filed: 02/08/23 16:31> Social History Social History: Social History Household Members: None Housing: Apartment Housing Other:: Independent living Alcohol intake: current Alcohol intake frequency: a few times a week Alcohol type: wine Patient Tobacco Use Status: Never used Tobacco e-Cigarette/Vaping Use: Never Used Second Hand Smoke Exposure: Yes service: No Current occupational status: retired Cognitive needs: Yes (cane) Hearing needs: Yes Vision needs: Yes <WILL Griffith - Last Filed: 02/08/23 16:31> Physical Exam ED Vital Signs: Vital Signs - 24 hr 02/08/23 16:28 Temperature 98 F Pulse Rate 90 Respiratory Rate 18 Blood Pressure 125/104 H Pulse Oximetry 96 Oxygen Delivery Method Room Air BMI result Body Mass Index 28.3 <WILL Griffith - Last Filed: 02/08/23 16:31> Vital Signs - 24 hr 02/08/23 16:28 Temperature 98 F Pulse Rate 90 Respiratory Rate 18 Blood Pressure 125/104 H Pulse Oximetry 96 Oxygen Delivery Method Room Air BMI result Body Mass Index 28.3 <Brock Edwards - Last Filed: 02/11/23 02:00> Const General: healthy appearing, comfortable, no acute distress, alert and awake <Brock Edwards - Last Filed: 02/11/23 02:00> Nutritional Appearance: well nourished <Brock Edwards - Last Filed: 02/11/23 02:00> Orientation/consciousness: patient oriented x3 <Brock ChirinosLares - Last Filed: 02/11/23 02:00> HENMT Head: Yes normocephalic and Yes atraumatic <Brock OZander - Last Filed: 02/11/23 02:00> Throat: Yes posterior oropharynx normal <Brock OZander - Last Filed: 02/11/23 02:00> Eyes Eyelids: Yes eyelids normal <Brock OZander - Last Filed: 02/11/23 02:00> Conjunctivae: conjunctivae normal <Brock OLares - Last Filed: 02/11/23 02:00> Sclerae: sclerae normal <Brock OLares - Last Filed: 02/11/23 02:00> Corneas: corneas normal <Brock OZander - Last Filed: 02/11/23 02:00> Pupils: Equal, round and reactive pupils present <Brock OLares - Last Filed: 02/11/23 02:00> EOM: EOMs intact bilaterally <Brock OLares - Last Filed: 02/11/23 02:00> Neck Neck: Yes full ROM <Brock OLares - Last Filed: 02/11/23 02:00> Resp Effort & Inspection: normal respiratory effort, able to speak in complete sentences, no audible wheezes and not labored <Brock OZander - Last Filed: 02/11/23 02:00> Auscultation: clear to auscultation bilaterally <Brock OLares - Last Filed: 02/11/23 02:00> Cardio Rate: regular rate <Brock OLares - Last Filed: 02/11/23 02:00> Rhythm: regular rhythm <Brock O - Last Filed: 02/11/23 02:00> GI Other: No palpable masses in the right inguinal region <Brock OLares - Last Filed: 02/11/23 02:00> Inspection: No distended <Brock OLares - Last Filed: 02/11/23 02:00> Palpation (GI): Soft to palpation, not firm, nontender, no guarding and not rigid <Brock OZander - Last Filed: 02/11/23 02:00> Auscultation: normoactive bowel sounds <Brock Edwards - Last Filed: 02/11/23 02:00> Skin General skin exam: no rashes or lesions noted and elasticity normal <Brock Edwards - Last Filed: 02/11/23 02:00> Neuro General: patient oriented x3 <Brock Edwards - Last Filed: 02/11/23 02:00> Cranial nerves: Yes Equal, round and reactive pupils present and Yes Bilaterally intact EOM present <Brock Edwards - Last Filed: 02/11/23 02:00> Cognition (Neuro): normal cognition <Brock Edwards - Last Filed: 02/11/23 02:00> Extrem Other: Moving all extremities well without any obvious deformities <Brock Edwards - Last Filed: 02/11/23 02:00> Course Course Course Narrative: RME - 77 yo female with history of anxiety/depression, HTN, PVD, GERD, constipation, HLD, obesity who presents to the ER with 1 week of nontraumatic right groin pain. Worse with ambulation. Tender in right inguinal area and right lower portion of the abdomen. Plan: labs and CT scan for further evaluation <WILL Griffith - Last Filed: 02/08/23 16:31> Medications Administered Discontinued Medications Generic Name Dose Route Start Last Admin Trade Name Freq PRN Reason Stop Dose Admin Tramadol HCl 50 mg 02/08/23 19:45 02/08/23 20:35 Tramadol Hcl 50 Mg Tablet PO 02/08/23 19:46 50 mg ONCE ONE Administration <WILL Griffith - Last Filed: 02/08/23 16:31> Medications Administered Discontinued Medications Generic Name Dose Route Start Last Admin Trade Name Freq PRN Reason Stop Dose Admin Tramadol HCl 50 mg 02/08/23 19:45 02/08/23 20:35 Tramadol Hcl 50 Mg Tablet PO 02/08/23 19:46 50 mg ONCE ONE Administration <Brock Edwards - Last Filed: 02/11/23 02:00> Medical Decision Making Medical Decision Making MDM Narrative: 77-year-old female presents for evaluation of lower abdominal pain that radiates to her leg and groin. Patient have labs that were significant for a mild leukocytosis of 11.1k, electrolytes within normal limits. She had a urine sample that showed blood only, no signs of infection. CT scan of the abdomen pelvis did not show any evidence of hernia, obstructive uropathy or intra- abdominal infection. Several incidental findings including right breast mass, right lung nodule, gallstone and uterine fibroids were discussed with the patient and her daughter. The patient has no right upper quadrant pain, tenderness and no nausea or vomiting to suggest biliary disease. Constipation was not documented in the CT scan report, however by my report the patient does have moderate stool burden mostly in the right lower quadrant in the area of her discomfort. I feel this is most likely causing her discomfort. <Brock Edwards - Last Filed: 02/11/23 02:00> Differential Diagnosis Differential Diagnoses: The differential diagnosis associated with the presentation includes <Brock Edwards - Last Filed: 02/11/23 02:00> Abdominal pain Inguinal hernia UTI Obstructive uropathy Acute appendicitis Uterine fibroid Constipation <Brock Edwards - Last Filed: 02/11/23 02:00> Lab Data Result Diagrams: 02/08/23 16:40 02/08/23 16:40 <WILL Griffith - Last Filed: 02/08/23 16:31> Labs: Lab Results 02/08/23 02/08/23 02/08/23 Range/Units 16:40 16:40 17:56 WBC 11.1 H (4.8-10.8) X10*3/uL RBC 4.67 (4.20-5.50) X10*6/uL Hgb 14.5 (12.0-16.0) g/dl Hct 43.4 (37.0-47.0) % MCV 92.9 (80.0-98.0) fL MCH 31.0 (27.0-33.0) pg MCHC 33.4 (31.0-35.0) g/dl RDW 12.3 (11.0-16.0) % Plt Count 337 (160-400) X10*3/uL MPV 9.1 L (9.4-12.3) fL Immature Gran % (Auto) 0.3 (0.0-0.4) % Neut % (Auto) 80.4 H (45-73) % Lymph % (Auto) 13.0 L (20-40) % [place] % (Auto) 5.7 (2-11) % Eos % (Auto) 0.1 (0-4) % Baso % (Auto) 0.5 (0-2) % Lymph # (Auto) 1.4 (1.2-4.9) X10*3/uL [place] # (Auto) 0.6 (0.1-1.2) X10*3/uL Eos # (Auto) 0.0 (0.0-0.4) X10*3/uL Baso # (Auto) 0.1 (0.0-0.2) X10*3/uL Abs Immat Gran (auto) 0.03 (0.00-0.03) X10*3/uL Absolute Neuts (auto) 8.9 H (2.0-8.3) x10*3/uL Absolute Nucleated RBC 0.000 (0.0-0.012) X10*3/uL Nucleated RBC % (auto) 0.0 (0.0-0.2) /100WBC Sodium 140 (135-145) mmol/L Potassium 4.4 (3.3-5.1) mmol/L Chloride 105 (96-108) mmol/L Carbon Dioxide 26 (22-29) mmol/L Anion Gap 13 (12-20) BUN 9 (9-16) mg/dL Creatinine 0.76 (0.5-1.4) mg/dL Estim Creat Clear Calc 64.6 Estimated GFR > 60 Random Glucose 115 (60-115) mg/dL Calcium 10.1 (8.4-10.2) mg/dL Magnesium 2.0 (1.6-2.6) mg/dL Total Bilirubin 0.6 (0.0-1.0) mg/dL Direct Bilirubin 0.2 (0.0-0.5) mg/dL AST 16 (5-31) U/L ALT 12 (0-31) U/L Alkaline Phosphatase 107 (39-117) U/L Total Protein 7.1 (6.5-8.0) g/dL Albumin 4.4 (3.5-5.0) g/dL Urine Color Yellow Urine Appearance Clear Urine pH 7.0 (5.0-9.0) Ur Specific [place] <= 1.005 (1.005-1.025) Urine Protein Negative (Neg-Trace) mg/dL Urine Glucose (UA) Negative (Negative) mg/dL Urine Ketones Negative (Negative) mg/dL Urine Blood Moderate (2+) H (Negative) Urine Nitrite Negative (Negative) Ur Leukocyte Esterase Negative (Negative) Urine RBC 6-10 H (0-2) /HPF Urine WBC 0-5 (0-5) /HPF Ur Squamous Epith Cells 3-5 (0-2) /HPF Urine Bacteria None Seen (None Seen) Hyaline Casts 0-2 (0-2) /LPF <WILL Griffith - Last Filed: 02/08/23 16:31> Lab Results 02/08/23 02/08/23 02/08/23 Range/Units 16:40 16:40 17:56 WBC 11.1 H (4.8-10.8) X10*3/uL RBC 4.67 (4.20-5.50) X10*6/uL Hgb 14.5 (12.0-16.0) g/dl Hct 43.4 (37.0-47.0) % MCV 92.9 (80.0-98.0) fL MCH 31.0 (27.0-33.0) pg MCHC 33.4 (31.0-35.0) g/dl RDW 12.3 (11.0-16.0) % Plt Count 337 (160-400) X10*3/uL MPV 9.1 L (9.4-12.3) fL Immature Gran % (Auto) 0.3 (0.0-0.4) % Neut % (Auto) 80.4 H (45-73) % Lymph % (Auto) 13.0 L (20-40) % [place] % (Auto) 5.7 (2-11) % Eos % (Auto) 0.1 (0-4) % Baso % (Auto) 0.5 (0-2) % Lymph # (Auto) 1.4 (1.2-4.9) X10*3/uL [place] # (Auto) 0.6 (0.1-1.2) X10*3/uL Eos # (Auto) 0.0 (0.0-0.4) X10*3/uL Baso # (Auto) 0.1 (0.0-0.2) X10*3/uL Abs Immat Gran (auto) 0.03 (0.00-0.03) X10*3/uL Absolute Neuts (auto) 8.9 H (2.0-8.3) x10*3/uL Absolute Nucleated RBC 0.000 (0.0-0.012) X10*3/uL Nucleated RBC % (auto) 0.0 (0.0-0.2) /100WBC Sodium 140 (135-145) mmol/L Potassium 4.4 (3.3-5.1) mmol/L Chloride 105 (96-108) mmol/L Carbon Dioxide 26 (22-29) mmol/L Anion Gap 13 (12-20) BUN 9 (9-16) mg/dL Creatinine 0.76 (0.5-1.4) mg/dL Estim Creat Clear Calc 64.6 Estimated GFR > 60 Random Glucose 115 (60-115) mg/dL Calcium 10.1 (8.4-10.2) mg/dL Magnesium 2.0 (1.6-2.6) mg/dL Total Bilirubin 0.6 (0.0-1.0) mg/dL Direct Bilirubin 0.2 (0.0-0.5) mg/dL AST 16 (5-31) U/L ALT 12 (0-31) U/L Alkaline Phosphatase 107 (39-117) U/L Total Protein 7.1 (6.5-8.0) g/dL Albumin 4.4 (3.5-5.0) g/dL Urine Color Yellow Urine Appearance Clear Urine pH 7.0 (5.0-9.0) Ur Specific [place] <= 1.005 (1.005-1.025) Urine Protein Negative (Neg-Trace) mg/dL Urine Glucose (UA) Negative (Negative) mg/dL Urine Ketones Negative (Negative) mg/dL Urine Blood Moderate (2+) H (Negative) Urine Nitrite Negative (Negative) Ur Leukocyte Esterase Negative (Negative) Urine RBC 6-10 H (0-2) /HPF Urine WBC 0-5 (0-5) /HPF Ur Squamous Epith Cells 3-5 (0-2) /HPF Urine Bacteria None Seen (None Seen) Hyaline Casts 0-2 (0-2) /LPF <Brock Edwards - Last Filed: 02/11/23 02:00> Discharge Plan Discharge Clinical Impression: Abdominal pain <WILL Griffith - Last Filed: 02/08/23 16:31> Patient Disposition: Home, Self-Care <WILL Griffith - Last Filed: 02/08/23 16:31> Instructions: Abdominal Pain (ED) <WILL Griffith - Last Filed: 02/08/23 16:31> Additional Instructions: Your blood work was within normal limits. Your urine sample showed blood but no evidence of infection. Your CT scan showed gallstones but no evidence of infection, and enlarged uterus with likely fibroids, there is a small right breast mass, and a small right lung nodule that can be followed up with your doctor. Your CT scan also showed moderate constipation. Take MiraLax every night for the next 2 weeks as a stool softener. Take magnesium citrate as directed for constipation. Increase fluid and fiber intake in your diet You may use tramadol for severe, breakthrough pain This may make you sleepy, did not drink alcohol or drive after taking <WILL Griffith - Last Filed: 02/08/23 16:31> Prescriptions: New polyethylene glycol 3350 [Miralax] 17 gram powder in packet 17 g PO DAILY Qty: 14 0RF magnesium citrate Solution 300 ml PO DAILY Qty: 296 0RF tramadol 50 mg tablet 50 mg PO TID PRN (Reason: severe pain (scale score 7-10)) Qty: 12 0RF No Action amlodipine 10 mg tablet 10 mg PO DAILY 90 Days Qty: 90 1RF famotidine 20 mg tablet 20 mg PO BID 90 Days Qty: 180 1RF lorazepam 0.5 mg tablet 0.5 mg PO TID PRN (Reason: anxiety) 30 Days Qty: 90 1RF (DME) LIGHTWEIGHT ROLLATOR See Rx Instructions .Route .MEDSUPPLY Qty: 1 0RF Rx Instructions: As directed cholecalciferol (vitamin D3) 25 mcg (1,000 unit) capsule 25 mcg PO DAILY 90 Days Qty: 90 3RF lisinopril 40 mg tablet 40 mg PO DAILY 90 Days Qty: 90 1RF simvastatin 20 mg tablet 20 mg PO BEDTIME 90 Days Qty: 90 1RF <WILL Griffith - Last Filed: 02/08/23 16:31> Interventions: ED Discharge Assessment Last Done: 02/08/23 20:40 <WILL Griffith - Last Filed: 02/08/23 16:31> Discharge Date/Time: 02/08/23 20:42 <WILL Griffith - Last Filed: 02/08/23 16:31>
[2023-02-08 16:28] VITALS: BP 125/104; PULSE 90; RESP 18; TEMP 36.6; O2SAT 96; BMI 28.3
[2023-02-08 16:49] LABS: MANUAL DIFF FLAG NO
[2023-02-08 16:50] LABS: Basophils Absolute Auto 0.1 X10*3/uL (0.0-0.2); Basophils Percent Auto 0.5 % (0-2); Eosinophils Percent Auto 0.1 % (0-4); Hematocrit 43.4 % (37.0-47.0); Hemoglobin 14.5 g/dl (12.0-16.0); Imm Gran Abs Auto 0.03 X10*3/uL (0.00-0.03); Imm Gran Pct Auto 0.3 % (0.0-0.4); Lymphocytes Absolute Auto 1.4 X10*3/uL (1.2-4.9); Mean Corpuscular HGB Conc 33.4 g/dl (31.0-35.0); Mean Corpuscular Volume 92.9 fL (80.0-98.0); Mean Platelet Volume 9.1 fL (9.4-12.3); Monocytes Absolute Auto 0.6 X10*3/uL (0.1-1.2); Monocytes Percent Auto 5.7 % (2-11); Neutrophils Absolute Auto 8.9 x10*3/uL (2.0-8.3); Neutrophils Percent Auto 80.4 % (45-73); Platelet Count 337 X10*3/uL (160-400); Red Blood Count 4.67 X10*6/uL (4.20-5.50); Red Cell Distribution Width 12.3 % (11.0-16.0); White Blood Count 11.1 X10*3/uL (4.8-10.8)
[2023-02-08 17:07] LABS: Alanine Aminotransferase 12 U/L (0-31); Albumin Level 4.4 g/dL (3.5-5.0); Alkaline Phosphatase 107 U/L (39-117); Anion Gap 13 (12-20); Aspartate Amino Transferase 16 U/L (5-31); Bilirubin Direct 0.2 mg/dL (0.0-0.5); Bilirubin Total 0.6 mg/dL (0.0-1.0); Blood Urea Nitrogen 9 mg/dL (9-16); Calcium 10.1 mg/dL (8.4-10.2); Carbon Dioxide 26 mmol/L (22-29); Chloride 105 mmol/L (96-108); Creatinine Clr Calc Pharmacy 64.6; Estimated Glomerular Filt Rate > 60; Glucose Random 115 mg/dL (60-115); Potassium 4.4 mmol/L (3.3-5.1); Sodium 140 mmol/L (135-145); Total Protein 7.1 g/dL (6.5-8.0)
[2023-02-08 18:03] LABS: Appearance Urine Clear; Color Urine Yellow; Glucose Urine UA Negative (Negative); Leukocyte Esterase Urine Negative (Negative); Nitrite Urine Negative (Negative); Specific Gravity - Urine <= 1.005 (1.005-1.025); UMIC TRIGGER UACC YES; Urine Blood Moderate (2+) (Negative); Urine Ketones Negative (Negative); Urine Protein Negative (Neg-Trace)
[2023-02-08 18:06] LABS: Bacteria Urine None Seen (None Seen); Hyaline Casts Urine 0-2 /LPF (0-2); WBC Urine 0-5 /HPF (0-5)
[2023-02-08] MEDS: traMADoL HCL 50 MG TABLET PO (20:35)
== END 2023-02-08 20:42 | disposition home or self-care (01) ==
PROVIDERS: Physician Assistant; Emergency Provider Emergency Medicine Emergency Medical Services; PCP Internal Medicine
DX: R10.31 Right lower quadrant pain (principal); M79.604 Pain in right leg; Z79.899 Other long term (current) drug therapy
CPT/HCPCS: 36415; 74176; 80048; 80076; 81001; 83735; 85025; 99284

== ENCOUNTER 2023-04-14 10:15 | Outpatient (REF) | payer MEDICARE, SELFPAY ==
[2023-04-14 10:26] LABS: MANUAL DIFF FLAG NO
[2023-04-14 11:00] LABS: Basophils Percent Auto 0.4 % (0-2); Eosinophils Absolute Auto 0.1 X10*3/uL (0.0-0.4); Eosinophils Percent Auto 0.8 % (0-4); Hematocrit 42.5 % (37.0-47.0); Hemoglobin 13.9 g/dl (12.0-16.0); Imm Gran Abs Auto 0.02 X10*3/uL (0.00-0.03); Imm Gran Pct Auto 0.3 % (0.0-0.4); Lymphocytes Absolute Auto 1.6 X10*3/uL (1.2-4.9); Mean Corpuscular HGB Conc 32.7 g/dl (31.0-35.0); Mean Corpuscular Hemoglobin 30.8 pg (27.0-33.0); Mean Corpuscular Volume 94.2 fL (80.0-98.0); Mean Platelet Volume 9.5 fL (9.4-12.3); Monocytes Absolute Auto 0.5 X10*3/uL (0.1-1.2); Monocytes Percent Auto 6.7 % (2-11); Neutrophils Absolute Auto 5.7 x10*3/uL (2.0-8.3); Neutrophils Percent Auto 71.8 % (45-73); Platelet Count 311 X10*3/uL (160-400); Red Blood Count 4.51 X10*6/uL (4.20-5.50); Red Cell Distribution Width 12.2 % (11.0-16.0); White Blood Count 7.9 X10*3/uL (4.8-10.8)
[2023-04-14 11:56] LABS: Alanine Aminotransferase 9 U/L (0-31); Albumin Level 4.2 g/dL (3.5-5.0); Alkaline Phosphatase 93 U/L (39-117); Anion Gap 15 (12-20); Aspartate Amino Transferase 14 U/L (5-31); Bilirubin Total 0.8 mg/dL (0.0-1.0); Blood Urea Nitrogen 9 mg/dL (9-16); Calcium 10.2 mg/dL (8.4-10.2); Carbon Dioxide 25 mmol/L (22-29); Chloride 105 mmol/L (96-108); Cholesterol 169 mg/dL; Estimated Glomerular Filt Rate > 60; Glucose Fasting 115 mg/dL (60-99); HDL Cholesterol 49 mg/dL; LDL Cholesterol Calculated 96 mg/dl; Potassium 4.2 mmol/L (3.3-5.1); Sodium 141 mmol/L (135-145); Total Protein 7.2 g/dL (6.5-8.0); Triglycerides 122 mg/dL
== END 2023-04-14 10:16 | disposition home or self-care (01) ==
LOC: HO.LAB 10:15
PROVIDERS: PCP Internal Medicine; Visit Provider Internal Medicine
DX: E78.00 Pure hypercholesterolemia, unspecified (principal); E55.9 Vitamin D deficiency, unspecified; I10 Essential (primary) hypertension
CPT/HCPCS: 36415; 80053; 80061; 82306; 84443; 85025

== ENCOUNTER 2023-08-14 10:31 | Outpatient (REF) | payer MEDICARE, SELFPAY ==
[2023-08-14 11:03] LABS: MANUAL DIFF FLAG NO
[2023-08-14 12:01] LABS: Basophils Percent Auto 0.5 % (0-2); Eosinophils Percent Auto 0.2 % (0-4); Hematocrit 42.2 % (37.0-47.0); Hemoglobin 13.9 g/dl (12.0-16.0); Imm Gran Abs Auto 0.04 X10*3/uL (0.00-0.03); Imm Gran Pct Auto 0.5 % (0.0-0.4); Lymphocytes Absolute Auto 1.3 X10*3/uL (1.2-4.9); Lymphocytes Percent Auto 15.4 % (20-40); Mean Corpuscular HGB Conc 32.9 g/dl (31.0-35.0); Mean Corpuscular Hemoglobin 31.4 pg (27.0-33.0); Mean Corpuscular Volume 95.5 fL (80.0-98.0); Mean Platelet Volume 9.8 fL (9.4-12.3); Monocytes Absolute Auto 0.6 X10*3/uL (0.1-1.2); Monocytes Percent Auto 6.6 % (2-11); Neutrophils Absolute Auto 6.4 x10*3/uL (2.0-8.3); Neutrophils Percent Auto 76.8 % (45-73); Platelet Count 323 X10*3/uL (160-400); Red Blood Count 4.42 X10*6/uL (4.20-5.50); Red Cell Distribution Width 11.9 % (11.0-16.0); White Blood Count 8.4 X10*3/uL (4.8-10.8)
[2023-08-14 12:11] LABS: Estimated Average Glucose 105 mg/dL; Hemoglobin A1c % 5.3 % (<6.0)
[2023-08-14 13:03] LABS: Alanine Aminotransferase 13 U/L (0-31); Albumin Level 4.1 g/dL (3.5-5.0); Alkaline Phosphatase 88 U/L (39-117); Anion Gap 16 (12-20); Aspartate Amino Transferase 16 U/L (5-31); Bilirubin Total 0.6 mg/dL (0.0-1.0); Blood Urea Nitrogen 9 mg/dL (9-16); Calcium 10.5 mg/dL (8.4-10.2); Carbon Dioxide 24 mmol/L (22-29); Chloride 106 mmol/L (96-108); Cholesterol 157 mg/dL (<200); Estimated Glomerular Filt Rate > 60; Glucose Fasting 103 mg/dL (60-99); HDL Cholesterol 50 mg/dL (>40); LDL Cholesterol Calculated 89 mg/dL (<100); Potassium 3.7 mmol/L (3.3-5.1); Sodium 142 mmol/L (135-145); Total Protein 7.4 g/dL (6.5-8.0); Triglycerides 92 mg/dL (<150)
[2023-08-14 13:05] LABS: TSH reflex Free T4 0.97 uIU/mL (0.32-4.0); Vitamin D 25-OH Total 54.4 ng/mL (>30)
[2023-08-14 13:31] LABS: Appearance Urine Cloudy; Color Urine Yellow; Glucose Urine UA Negative (Negative); Leukocyte Esterase Urine Negative (Negative); Nitrite Urine Negative (Negative); PH 6.5 (5.0-9.0); UMIC TRIGGER UACC YES; Urine Blood Trace (Negative); Urine Ketones 15 mg/dL (Negative); Urine Protein Trace mg/dL (Neg-Trace)
[2023-08-14 13:57] LABS: RBC Urine 0-2 /HPF (0-2); WBC Urine 0-5 /HPF (0-5)
[2023-08-14 13:58] LABS: Bacteria Urine 1+ (None Seen); Hyaline Casts Urine 0-2 /LPF (0-2)
== END 2023-08-14 10:32 | disposition home or self-care (01) ==
LOC: HO.LAB 10:31
PROVIDERS: PCP Internal Medicine; Visit Provider Internal Medicine
DX: I10 Essential (primary) hypertension (principal); E78.00 Pure hypercholesterolemia, unspecified; R73.01 Impaired fasting glucose; E55.9 Vitamin D deficiency, unspecified
CPT/HCPCS: 36415; 80053; 80061; 81001; 81003; 82306; 83036; 84443; 85025

== ENCOUNTER 2023-08-22 09:19 | Outpatient (AMB) | payer MEDICARE, SELFPAY ==
[2023-08-22 09:52] VITALS: BP 122/80; PULSE 81; O2SAT 98; BMI 26.5
--- NOTE | 2023-08-22 09:52 | MHC.PC.OV ---
Vital Signs 08/22/23 09:52 Height 5 ft 5 in Weight 159 lb 6.307 oz BMI 26.5 BP 122/80 Blood Pressure Location Lt brachial Position Sitting Pulse 81 Pulse Source Pulse Oximeter Pulse Oximetry (%) 98 Oxygen Delivery Method Room Air Intake Visit Reasons: hyperlipidemia, HTN, constipation, anxiety Gas Singer Required: No Accompanied by: Self / Same As Patient Allergies Penicillins Allergy (Mild, Verified 08/22/23 10:23) HIVES codeine Allergy (Unknown, Verified 08/22/23 10:23) nausea Medication List - Last Reconciled 08/22/23 by Clifofrd Bucio MD amlodipine 10 mg PO DAILY 90 days cholecalciferol (vitamin D3) 25 mcg PO DAILY 90 days famotidine 20 mg PO BID 90 days [LIGHTWEIGHT ROLLATOR As directed] lisinopril 40 mg PO DAILY 90 days lorazepam 0.5 mg PO TID PRN 30 days magnesium citrate 300 mL PO DAILY polyethylene glycol 3350 (Miralax) 17 grams PO DAILY 30 days psyllium husk (Metamucil) 0.4 grams PO DAILY 90 days simvastatin 20 mg PO BEDTIME 90 days tramadol 50 mg PO TID PRN Tobacco use date assessed: 08/22/23 Fall risk assessment: No Falls in past year Last assessed Fall Risk: 08/22/23 Dental Screening Dental Screen Date: 08/22/23 Did you have a dental visit in the last 12 months?: No Did you have a dental problem in the last 6 months where you did not have access to dental care?: No Was dental information given to patient?: Patient has dentist HPI hyperlipidemia, HTN, constipation, anxiety HPI Details Patient comes in today for her follow up visit States that she feels okay She denies any headaches or dizziness Denies any chest pains, no SOB No nausea/vomiting, no abdominal pain States that she had some diarrhea yesterday and feels that the diarrhea took a lot out of her - she appears to have lost quite some weight since her last visit States that before her diarrhea, she continues to struggle with her constipation and has some good days and bad days She was scheduled to see Dr. Haddad earlier this year for consideration for colonoscopy but she ended up canceling her appts as she states that she was not feeling well at the time Had her follow up labs done last week - to discuss her results [facility] Medical History (Updated 08/22/23 @ 11:06 by Clifford Bucio MD) Breast cancer Overweight (BMI 25.0-29.9) Depression Anxiety Venous insufficiency of both lower extremities Nocturnal leg cramps Allergic rhinitis Constipation GERD without esophagitis Vitamin D deficiency Impaired fasting glucose Pure hypercholesterolemia Benign essential hypertension Surgical History H/O lumpectomy History of lumpectomy of right breast History of colonoscopy Family History Father Hypertension Stroke Mother Stroke Hypertension Social History Household Members: None Housing: Apartment Housing Other:: Independent living Alcohol intake: current Alcohol intake frequency: a few times a week Alcohol type: wine Patient Tobacco Use Status: Never used Tobacco e-Cigarette/Vaping Use: Never Used Second Hand Smoke Exposure: Yes service: No Current occupational status: retired Cognitive needs: Yes (cane) Hearing needs: Yes Vision needs: Yes Questionnaire PHQ-9 Over the last 2 weeks, how often have you been bothered by any of the following problems? 1. Little interest or pleasure in doing things: several days 2. Feeling down, depressed, or hopeless: several days 3. Trouble falling or staying asleep, or sleeping too much: several days 4. Feeling tired or having little energy: not at all 5. Poor appetite or overeating: several days 6. Feeling bad about yourself - or that you are a failure or have let yourself or your family down: several days 7. Trouble concentrating on things, such as reading the newspaper or watching television: several days 8. Moving or speaking so slowly that other people could have noticed. Or the opposite - being so fidgety or restless that you have been moving around a lot more than usual: several days 9. Thoughts that you would be better off or of hurting yourself in some way: not at all Total score: 7 Depression Screening Interpretation: Positive Depression Screening Follow-up: Existing condition and In treatment Depression Screening Done: Yes 31376 - PHQ-9 Billing: Yes Source: Developed by Drs. Woodrow L. Shannon, Ihsan Ro and colleagues, with an educational kirby from [employer]. Thrive Questionnaire Date Thrive assessed: 08/22/23 I am a: Patient What is your living situation today?: I have a steady place to live Within the past 12 months, did the food you bought not last and you didn't have the money to get more?: Never true Within the past 12 months, did you worry whether your food would run out before you got money to buy more?: Never true Do you have trouble paying for medicines?: No Do you have trouble getting transportation to medical appointments?: No Do you have trouble paying your heating and electricity bill?: No Do you have trouble taking care of your child, family member or friend?: No Do you have trouble with day-to-day activities such as bathing, preparing meals, shopping, managing finances, etc.?: No Are you currently unemployed and looking for a job?: No Are you interested in more education?: No Please select the resources that you would like help with: None Currently or been in a relationship where the following occur: no concerns reported AUDIT C Alcohol Use Questionnaire (AUDIT-C) 1. How often do you have a drink containing alcohol?: Monthly or less 2. How many drinks containing alcohol do you have on a typical day when you are drinking?: 1 or 2 3. How often do you have six or more drinks on one occasion?: Never Total Score: 1 Score Reviewed/Action Taken: Yes ANURADHA-7 AMB Questionnaire ANURADHA-7 Date ANURADHA - 7 assessed: 08/22/23 Feeling nervous, anxious, or on edge: 0 = Not at all Not being able to stop or control worryin = Not at all Worrying too much about different things: 0 = Not at all Trouble relaxin = Not at all Being so restless that it is hard to sit still: 0 = Not at all Becoming easily annoyed or irritable: 0 = Not at all Feeling afraid as if something awful might happen: 0 = Not at all Total ANURADHA-7 score (0-4 normal; 5-9 mild; 10-14 moderate; 15-21 severe): 0 Source: Developed by Drs. Woodrow Ortega, Ihsan Ro and colleagues, with an educational kirby from [employer]. Review of Systems Const Denies chills, Denies fatigue, Denies fever(s), Denies headache(s) and Reports weight loss ENT Denies dysphagia, Denies dizziness, Denies otalgia, Denies headache(s), Denies neck pain, Denies odynophagia and Denies sore throat Card Denies chest pain, Denies palpitations and Denies dyspnea Resp Denies cough, Denies dyspnea and Denies wheezing GI Reports abdominal pain (occasional cramping pain over the right lower abdomen), Reports constipation, Denies dysphagia, Denies heartburn, Reports diarrhea (had bouts of diarrhea yesterday - see HPI), Denies nausea, Denies odynophagia and Denies vomiting Denies nocturia, Denies dysuria and Reports urinary incontinence Musc Denies back pain, Denies arthralgias, Reports muscle weakness (over both legs at times) and Denies neck pain Neuro Denies dizziness and Denies headache(s) Psych Reports anxiety (increased; chronic - worries incessantly over everything) Endo Denies fatigue and Denies palpitations Aller/Immun Denies wheezing Physical exam (Primary Care) Vital Signs: Last Vital Signs Pulse 81 08/22/23 09:52 BP 122/80 08/22/23 09:52 Pulse Ox 98 08/22/23 09:52 Oxygen Delivery Method Room Air 08/22/23 09:52 BMI result Body Mass Index 26.5 Tobacco/Smoking Status: Tobacco use Status Tobacco use date assessed 08/22/23 08/22/23 09:59 Patient Tobacco Use Status Never used Tobacco 08/22/23 09:59 e-Cigarette/Vaping Use Never Used 08/22/23 09:59 PHQ-9: PHQ-9 Score PHQ-9: Total score 7 08/22/23 09:59 Depression Screening Interpretation: Positive Depression Screening Follow-up: Existing condition and In treatment Thrive Assessment: Date of Thrive Assessment Date Thrive assessed 08/22/23 08/22/23 09:59 Currently or been in a relationship where the following occur: no concerns reported Const General: no acute distress and alert HENMT Ears: TM's normal bilaterally and EAC's normal Throat: Yes posterior oropharynx normal and Yes tonsils normal Neck Neck: Yes no lymphadenopathy and Yes supple Thyroid: Thyroid normal Lymphatic: no lymphadenopathy noted Resp Auscultation: clear to auscultation bilaterally, no rales and no wheezes Cardio Rate: regular rate Rhythm: regular rhythm Heart sounds: no murmurs GI Palpation (GI): Tenderness to palpation present (GI) (diffuse discomfort and mild tenderness on palpation) in the RLQ (tenderness on palpation but no guarding), no guarding and No Rebound tenderness present General: Yes no CVA tenderness Back/Spine/Pelvis Back: no CVA tenderness Skin Rashes: no rashes Extrem General: Yes no clubbing, cyanosis or edema Psych Affect: Anxious affect present Results Reviewed Results Reviewed: Laboratory Tests 08/14/23 08/14/23 08/14/23 11:02 11:02 11:05 WBC 8.4 Hgb 13.9 Hct 42.2 Plt Count 323 Sodium 142 Potassium 3.7 Creatinine 0.73 Estimated GFR > 60 Fasting Glucose 103 H Hemoglobin A1c % 5.3 Calcium 10.5 H AST 16 ALT 13 Triglycerides 92 Cholesterol 157 LDL Cholesterol, Calc 89 HDL Cholesterol 50 25-OH Vitamin D Total 54.4 TSH 0.97 Urine pH 6.5 Ur Specific [place] 1.020 Urine Protein Trace Urine Glucose (UA) Negative Urine Blood Trace Assessment and Plan Assessment & Plan (1) Benign essential hypertension: Code(s): I10 - Essential (primary) hypertension Plan: Reinforced low-sodium diet -? goal is systolic BP of at least 140 mm or less Continue Lisinopril 40 mg QD and Amlodipine 10 mg QD (2) Pure hypercholesterolemia: Code(s): E78.00 - Pure hypercholesterolemia, unspecified Plan: Results of her labs done last week reviewed and discussed with patient Reinforced low cholesterol diet Continue Simvastatin 20 mg QD Will recheck her labs and fasting lipids in 3 months for follow-up (3) Impaired fasting glucose: Code(s): R73.01 - Impaired fasting glucose Plan: HgbA1c remains normal at 5.3% when checked months ago Reinforced low calorie diet /exercise as tolerated (4) Vitamin D deficiency: Code(s): E55.9 - Vitamin D deficiency, unspecified Plan: Corrected - continue Vitamin D3 1000 units QD (5) GERD without esophagitis: Code(s): K21.9 - Gastro-esophageal reflux disease without esophagitis Plan: Dietary restrictions reinforced Continue Famotidine 20 mg BID as needed (6) Constipation: Code(s): K59.00 - Constipation, unspecified Qualifiers: Constipation type: unspecified constipation type Qualified Code(s): K59.00 - Constipation, unspecified Plan: Encouraged again on increased oral fluids and dietary fiber Continue Senna 8.6 mg 1-2 tablets once a day as needed and advised AGAIN that she should start taking Miralax 17 gm QD Patient states that she drinks prune juice first when she starts getting constipated and this helps keep her symptoms controlled although she seems to be having trouble with this again lately Reports that she had diarrhea all day yesterday and appears to have lost a significant amount of weight since her last visit - unclear when she actually lost most of her weight but because of her ongoing issues with her bowels, will refer her back to GI for further evaluation and management States that she has not had a repeat colonoscopy done since 2008 and advised that she is due for repeat procedure - she was previously referred for repeat colonoscopy per her request but states that she had to cancel her appt with Dr. Haddad a couple of times as she was not feeling well then (7) Allergic rhinitis: Code(s): J30.9 - Allergic rhinitis, unspecified Qualifiers: Allergic rhinitis trigger: unspecified Allergic rhinitis seasonality: unspecified Qualified Code(s): J30.9 - Allergic rhinitis, unspecified Plan: Continue Fluticasone 50 mcg nasal spray 1 spray into each nostril once a day (8) Venous insufficiency of both lower extremities: Code(s): I87.2 - Venous insufficiency (chronic) (peripheral) Plan: Encouraged again to continue elevating her legs and feet as often as she can to help minimize her pedal edema Patient also wears compression stockings, which she states have helped a lot (9) Hematuria: Code(s): R31.9 - Hematuria, unspecified Qualifiers: Hematuria type: asymptomatic microscopic Qualified Code(s): R31.21 - Asymptomatic microscopic hematuria Plan: States that she has NO acute urinary symptoms She has declined offer to have her at least get a renal US for further evaluation previously Will continue to monitor this for now; will check urine cytology again in 3 months for further evaluation (10) History of breast cancer: Code(s): Z85.3 - Personal history of malignant neoplasm of breast Plan: 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 Ultrasound-guided core biopsy done on 10/04/2010 revealed (+) ductal carcinoma in situ, ER/TX positive She subsequently underwent left breast lumpectomy and left axillary sentinel node biopsy in October 2010 - pathology revealed DCIS without evidence of invasive tumor She received adjuvant radiotherapy and was on Tamoxifen from October 2010 to October 2013 She was diagnosed then with stage I right breast carcinoma in September 2013 - also noted on routine mammogram She underwent lumpectomy on 10/01/2014 which revealed a 0.7 cm invasive ductal carcinoma grade 1 with no lymphovascular invasion - stage was [id number]. She then underwent radiation therapy and was switched from Tamoxifen therapy to Letrozole beginning on 10/25/2013 and completed 5 years of letrozole in October 2019 She continues to follow up with oncology regularly for surveillance and goes for her yearly mammogram as scheduled (11) Anxiety: Code(s): F41.9 - Anxiety disorder, unspecified Plan: She continues to exhibit significant anxiety and worries incessantly over everything and anything Continue Lorazepam 0.5 mg 1 tablet 2 to 3 times a day as needed Have offered again to start her on something to help control her anxiety better - states that she does not want to have to take more medicines if she can avoid it but after some convincing, she now agrees to try Sertraline Will send in Rx for Sertraline 25 mg Q AM - reminded that she has to take this daily for it to be effective Follow-up with her counselor /therapist as scheduled (12) Depression: Code(s): F32.9 - Major depressive disorder, single episode, unspecified Qualifiers: Depression Type: major depressive disorder Major depression recurrence: recurrent Active/Remission status: currently active Major depression episode severity: unspecified Qualified Code(s): F33.9 - Major depressive disorder, recurrent, unspecified Plan: States that she has been doing well with this lately and continues to follow-up with her counselor / therapist regularly Has been prescribed Escitalopram in the past but patient declined the Rx and stated that she will call if she decides she wants to start on additional medications for her depression and anxiety She now agrees to try Sertraline - Rx sent (13) Overweight (BMI 25.0-29.9): Code(s): E66.3 - Overweight Plan: Reinforced diet/exercise as tolerated/lose weight (14) Cervical cancer screening: Code(s): Z12.4 - Encounter for screening for malignant neoplasm of cervix Plan: Per patient request, will refer her to gynecology (prefers female practitioner) for dust collector exam and pap smear, if appropriate Plan Follow up in 3 months Orders: Orders Vitamin D 25-OH Total 3 Months E55.9 - Vitamin D deficiency, unspecified Complete Blood Count Auto Diff 3 Months I10 - Essential (primary) hypertension Comprehensive [place]. Panel Fast 3 Months E78.00 - Pure hypercholesterolemia, unspecified Lipid Panel 3 Months E78.00 - Pure hypercholesterolemia, unspecified TSH reflex Free T4 3 Months E78.00 - Pure hypercholesterolemia, unspecified UA CC w/rflx Micro + Cult 3 Months R30.0 - Dysuria Urine Cytology 3 Months R31.21 - Asymptomatic microscopic hematuria Referrals Gastroenterology Referral K59.00 - Constipation, unspecified, R63.4 - Abnormal weight loss [facility] Referral Z12.4 - Encounter for screening for malignant neoplasm of cervix Medications: New sertraline Take 1 tablet daily every morning for anxiety - has to be taken everyday for it to be effective 25 mg PO DAILY 90 days 90 tabs 1RF anxiety Coding Level of Care Code Est Pt Level 4 (86234) Diagnoses Benign essential hypertension I10 Pure hypercholesterolemia E78.00 Impaired fasting glucose R73.01 Vitamin D deficiency E55.9 GERD without esophagitis K21.9 Constipation, unspecified constipation type K59.00 Constipation type: unspecified constipation type Allergic rhinitis, unspecified seasonality, unspecified trigger J30.9 Allergic rhinitis trigger: unspecified Allergic rhinitis seasonality: unspecified Venous insufficiency of both lower extremities I87.2 Asymptomatic microscopic hematuria R31.21 Hematuria type: asymptomatic microscopic History of breast cancer Z85.3 Anxiety F41.9 Episode of recurrent major depressive disorder, unspecified depression episode severity F33.9 Depression Type: major depressive disorder Major depression recurrence: recurrent Active/Remission status: currently active Major depression episode severity: unspecified Overweight (BMI 25.0-29.9) E66.3 Cervical cancer screening Z12.4
== END 2023-08-22 11:03 | disposition home or self-care (01) ==
PROVIDERS: PCP Internal Medicine; Visit Provider Internal Medicine
DX: I10 Essential (primary) hypertension (principal); E78.00 Pure hypercholesterolemia, unspecified; R73.01 Impaired fasting glucose; F33.9 Major depressive disorder, recurrent, unspecified; E55.9 Vitamin D deficiency, unspecified; K21.9 Gastro-esophageal reflux disease without esophagitis; K59.00 Constipation, unspecified; J30.9 Allergic rhinitis, unspecified; I87.2 Venous insufficiency (chronic) (peripheral); R31.21 Asymptomatic microscopic hematuria; Z85.3 Personal history of malignant neoplasm of breast; F41.9 Anxiety disorder, unspecified
CPT/HCPCS: 99214

== ENCOUNTER 2023-09-18 10:44 | Outpatient (AMB) | payer MEDICARE, SELFPAY ==
[2023-09-18 10:48] VITALS: BP 123/60; PULSE 90; BMI 26.1
--- NOTE | 2023-09-18 10:48 | MHC.OFFVIS ---
Intake Vital Signs 09/18/23 10:48 Height 5 ft 5 in Weight 156 lb 15.506 oz BMI 26.1 BP 123/60 Blood Pressure Location Rt brachial Position Sitting Pulse 90 Pulse Source Pulse Oximeter Intake Visit Reasons: Constipation and Weight loss Intake Note: Pt presents to the office today for constipation and weight loss. Pt states she sometimes will go 2-3 days without having a bowel movement. Pt states she has been losing weight as well. Pt states she gets nauseous when she becomes constipated but denies any vomiting. Allergies Penicillins Allergy (Mild, Verified 09/18/23 10:52) HIVES codeine Allergy (Unknown, Verified 09/18/23 10:52) nausea HPI HPI Comments History of Present Illness Details This is a 78y.o F with PMH of breast ca (left and then right side) - in remission, obesity, GERD who is here for unintentional weight loss. Pt is quite anxious and tearful at the time of encounter. Reports has been quite worried about her weight loss that has been ongoing for a few months. This is associated with intermittent RLQ discomfort and nausea. With this the bowel movements are constipated which is new for her, as previously she would have trouble with loose BMs. No blood in stool. Does not report change in appetite or early satiety. No vomiting. Recent blood work reviewed - CBC normal, no hyperthyroidism or ucontrolled DM. Last colo was in 2008 (Dr Ruiz) - x1 hyperplastic polyp. No fam hx of colon cancer (daughter has breast ca) PFSH Medical History Breast cancer Overweight (BMI 25.0-29.9) Depression Anxiety Venous insufficiency of both lower extremities Nocturnal leg cramps Allergic rhinitis Constipation GERD without esophagitis Vitamin D deficiency Impaired fasting glucose Pure hypercholesterolemia Benign essential hypertension Surgical History H/O lumpectomy History of lumpectomy of right breast History of colonoscopy Family History Father Hypertension Stroke Mother Stroke Hypertension Social History Household Members: None Housing: Apartment Housing Other:: Independent living Alcohol intake: current Alcohol intake frequency: a few times a week Alcohol type: wine Patient Tobacco Use Status: Never used Tobacco e-Cigarette/Vaping Use: Never Used Second Hand Smoke Exposure: Yes service: No Current occupational status: retired Cognitive needs: Yes (cane) Hearing needs: Yes Vision needs: Yes Review of Systems Const All systems reviewed & are unremarkable except as noted in HPI and below Physical Exam Vital Signs: Last Vital Signs Pulse 90 09/18/23 10:48 BP 123/60 09/18/23 10:48 BMI result Body Mass Index 26.1 Gen appear: NAD HEENT: nonicteric, no cervical lymphadenopathy Chest: CTA CVS: Regular S1/S2 Abd: soft, nontender, nondistended, bowel sounds + Ext: no peripheral edema Neuro: A/Ox3, noted to move all extremities spontaneously Psych: interacting appropriately Assessment & Plan Assessment & Plan (1) Unintentional weight change: Code(s): R68.89 - Other general symptoms and signs (2) Right lower quadrant abdominal pain: Code(s): R10.31 - Right lower quadrant pain (3) Constipation: Code(s): K59.00 - Constipation, unspecified Qualifiers: Constipation type: unspecified constipation type Qualified Code(s): K59.00 - Constipation, unspecified Plan Ddx for RLQ pain with change in bowel habits and unintentional weight loss include malignancy, diverticular disease, - IBS-C less likely given weight loss. Will arrange for urgent endoscopic work up and imaging. Plan: - Labs ordered as below - EGD/colo to be booked in a few weeks. Split PEG prep was reviewed with the pt and handout provided as well. - CT Abd/pel with IV contrast ordered - Pt was advised to increase hydration and take miralax as needed for constipation. - Of note- mild hypercalcemia noted and will check ionized ca. Follow up after scopes Orders: Orders CT abdomen pelvis w IV con Today R68. - Other general symptoms and signs Hepatitis A IgG Today . - Other general symptoms and signs Hepatitis B Surface Antibody Today . - Other general symptoms and signs Hepatitis B Surface Antigen Today . - Other general symptoms and signs Hepatitis C Antibody Today . - Other general symptoms and signs Immunoglobulin A Today - Other general symptoms and signs Hepatitis B Core Antibody Today . - Other general symptoms and signs HIV Ab/Ag Today R68.89 - Other general symptoms and signs Transglutaminase IgA Today R68.89 - Other general symptoms and signs Calcium, Ionized Today E83.52 - Hypercalcemia Medications: New polyethylene glycol 3350 (Miralax) 17 grams PO DAILY 238 grams 0RF peg 3350-electrolytes 236-22.74-6.74 -5.86 gram (Golytely) as per split prep instructions, until fecal effluent is clear 240 mL PO Q10M 4,000 mL 0RF colonoscopy Patient Instructions: 1. We recommend blood work that can be done today. 2. A CT scan of your abdomen and pelvis is being scheduled 3. An upper endoscopy and colonoscopy will also be booked for you in the next few weeks. Coding Level of Care Code New Pt Level 4 (26500) Diagnoses Unintentional weight change R68.89 Right lower quadrant abdominal pain R10.31 Constipation, unspecified constipation type K59.00 Constipation type: unspecified constipation type
== END 2023-09-18 11:29 | disposition home or self-care (01) ==
PROVIDERS: PCP Internal Medicine; Visit Provider Internal Medicine
DX: R68.89 Other general symptoms and signs (principal); R10.31 Right lower quadrant pain; K59.00 Constipation, unspecified
CPT/HCPCS: 99204

== ENCOUNTER 2023-09-18 10:44 | Outpatient (REF) | payer MEDICARE, SELFPAY ==
[2023-09-19 06:18] LABS: HBS Num1 0.06 mIU/mL (0-7.99); HBc Num1 0.11 S/CO (0.00-0.79); HBsAGNum1 0.27 S/CO (0.00-0.99); HIV AB/AG Nonreactive (Nonreactive); HIV Num 1 0.07 S/CO (0.00-0.99); Hepatitis B Core Antibody Nonreactive (Nonreactive); Hepatitis B Surface Antigen Negative (Negative); ~HepC Num1 0.06 S/CO (0.00-0.79); ~Hepatitis B Surface Antibody NONREACTIVE (Nonreactive); ~Hepatitis C Antibody Nonreactive (Nonreactive)
[2023-09-19 06:20] LABS: Hepatitis A Antibody IgG Nonreactive (Nonreactive); ~Hepatitis A Antibody IgG 0.64 S/CO (0.00-0.99)
[2023-09-19 14:50] LABS: Calcium, Ionized 5.4 mg/dL (4.7-5.5)
[2023-09-19 19:08] LABS: Immunoglobulin A 356 mg/dL (70-320)
[2023-09-20 17:38] LABS: Transglutaminase IgA <1.0 U/mL
== END 2023-09-18 10:45 | disposition home or self-care (01) ==
LOC: HO.LAB 10:44
PROVIDERS: PCP Internal Medicine; Visit Provider Internal Medicine
DX: K59.00 Constipation, unspecified (principal); R68.89 Other general symptoms and signs; R10.31 Right lower quadrant pain; E83.52 Hypercalcemia
CPT/HCPCS: 36415; 82330; 82784; 86364; 86704; 86706; 86708; 86803; 87340; 87389; 99202

== ENCOUNTER 2023-10-31 11:55 | Day surgery (SDC) | payer MEDICARE, SELFPAY ==
[2023-10-27 08:19] VITALS: BMI 26.5
--- NOTE | 2023-10-30 10:39 | HO.ANESPROP2 ---
Documented by User: Lupe Ramírez NP 10/30/23 10:40 HPI - Anesthesia Eval Consult details Narrative: 78yo F for Upper Endoscopy and Colonoscopy FOR[facility]LY [facility] Active Problems Active Problems: All Active Problems (Updated 09/18/23 @ 11:11 by Dixie Alvares MD) Unintentional weight change (Acute) Cervical cancer screening (Acute) History of breast cancer (Acute) Breast cancer (Chronic) Overweight (BMI 25.0-29.9) (Acute) Abdominal pain (Acute) Hematuria (Acute) Colon cancer screening (Acute) Right lower quadrant abdominal pain (Acute) Annual physical exam (Acute) Unsteady gait (Acute) Obesity (BMI 30-39.9) (Acute) Depression (Acute) Anxiety (Acute) Venous insufficiency of both lower extremities (Acute) Nocturnal leg cramps (Acute) Allergic rhinitis (Acute) Constipation (Acute) GERD without esophagitis (Acute) Vitamin D deficiency (Acute) Impaired fasting glucose (Acute) Pure hypercholesterolemia (Acute) Benign essential hypertension (Acute) Past Medical History Medical History Breast cancer Overweight (BMI 25.0-29.9) Depression Anxiety Venous insufficiency of both lower extremities Nocturnal leg cramps Allergic rhinitis Constipation GERD without esophagitis Vitamin D deficiency Impaired fasting glucose Pure hypercholesterolemia Benign essential hypertension Family History Family History Father Hypertension Stroke Mother Stroke Hypertension Surgical History Surgical History H/O lumpectomy History of lumpectomy of right breast History of colonoscopy Social History Social History Household Members: None Housing: Apartment Housing Other:: Independent living Alcohol intake: current Alcohol intake frequency: holidays/special occasions only Alcohol type: wine Patient Tobacco Use Status: Never used Tobacco e-Cigarette/Vaping Use: Never Used Second Hand Smoke Exposure: Yes Use of substances other than those prescribed or required for medical reasons: No Are you DNR?: No Advance Directives: No Advance Directives Information Provided: Yes service: No Current occupational status: retired Cognitive needs: Yes (cane) Hearing needs: Yes Vision needs: Yes Meds Allergies Allergy/AdvReac Type Severity Reaction Status Date / Time Penicillins Allergy Mild HIVES Verified 10/31/23 12:59 codeine Allergy Unknown nausea Verified 10/31/23 12:59 Exam Height,Weight and Vital Signs: Height 5 ft 5 in Weight 72.121 kg Pertinent Lab Results Pertinent Lab Results: Laboratory Tests 08/14/23 11:02 WBC 8.4 Hgb 13.9 Hct 42.2 Plt Count 323 Sodium 142 Potassium 3.7 Chloride 106 Carbon Dioxide 24 BUN 9 Creatinine 0.73 Assessment and Plan Assessment Anesthesia Assessment: Chart Reviewed Documented by User: Savanna Newsome MD 10/31/23 13:02 PMFSH Past Medical History Medical History Breast cancer Overweight (BMI 25.0-29.9) Depression Anxiety Venous insufficiency of both lower extremities Nocturnal leg cramps Allergic rhinitis Constipation GERD without esophagitis Vitamin D deficiency Impaired fasting glucose Pure hypercholesterolemia Benign essential hypertension Family History Family History Father Hypertension Stroke Mother Stroke Hypertension Family history of problems with anesthesia: No Surgical History Surgical History H/O lumpectomy History of lumpectomy of right breast History of colonoscopy History of Problems with Anesthesia: No Social History Social History Household Members: None Housing: Apartment Housing Other:: Independent living Alcohol intake: current Alcohol intake frequency: holidays/special occasions only Alcohol type: wine Patient Tobacco Use Status: Never used Tobacco e-Cigarette/Vaping Use: Never Used Second Hand Smoke Exposure: Yes Use of substances other than those prescribed or required for medical reasons: No Are you DNR?: No Advance Directives: No Advance Directives Information Provided: Yes service: No Current occupational status: retired Cognitive needs: Yes (cane) Hearing needs: Yes Vision needs: Yes Meds Allergies Allergy/AdvReac Type Severity Reaction Status Date / Time Penicillins Allergy Mild HIVES Verified 10/31/23 12:59 codeine Allergy Unknown nausea Verified 10/31/23 12:59 Exam Airway Mallampati Class: II TM Dist: >3cm Neck ROM: Limited Heart: rrr Lungs: cta Assessment and Plan Assessment Anesthesia Assessment: Anesthesia Plan Discussed Final Anesthetic Review Family History of Problems with Anesthesia: No History of Problems with Anesthesia: No NPO: Yes ASA Class: III Final Preanesthetic Review: No Changes in Pt Med Stat, Meds/Allgs Chart Reviewed, Consent Obtained/Reviewed and Anes Risks/Benef Reviewed Anesthetic Plan Anesthetic Plan: MAC: Disposition: Standard PACU
[2023-10-31 12:27] VITALS: BMI 24.7
[2023-10-31 13:06] VITALS: BP 135/67; PULSE 88; RESP 16; TEMP 36.3; O2SAT 97
--- NOTE | 2023-10-31 13:22 | MHC.SHP ---
Pre-Procedural Eval Section A Date of Service: 10/31/23 The patient is an INPATIENT: No The History & Physical has been completed within 30 days and I have reviewed it.: No Section B Chief Complaint: Screening, abdominal pain, weight loss, GERD Relevant Family History (Specify if Yes): No Relevant Social History: None Present Medications: see Short Stay Collaborative assessment Medical History: Significant History (Breast cancer Overweight (BMI 25.0-29.9) Depression Anxiety Venous insufficiency of both lower extremities Nocturnal leg cramps Allergic rhinitis Constipation GERD without esophagitis Vitamin D deficiency Impaired fasting glucose Pure hypercholesterolemia Benign essential hypertension) History of Previous Operations: Relevant previous surgery/procedure and date(s) (H/O lumpectomy History of lumpectomy of right breast History of colonoscopy) Allergies: Allergies Allergy/AdvReac Type Severity Reaction Status Date / Time Penicillins Allergy Mild HIVES Verified 10/31/23 12:59 codeine Allergy Unknown nausea Verified 10/31/23 12:59 Review of Systems Sugical H&P ROS: Negative: Constitution, Cardiovascular, Respiratory and Gastrointestinal Exam Surgical H&P Exam: Normal: Heart, Normal: Extremities and Normal: Abdomen Plan Diagnosis/Plan: Unchanged I have reviewed the history and physical and performed a pertinent physical examination on my patient. No changes have occurred unless specified. Time Spent With Patient Time: Total time managing care of this patient today ____ minutes.
--- NOTE | 2023-10-31 14:32 | P.OP_ITS ---
Operative Note Operative Note Date of Service: 10/31/23 Narrative: FLEXIBLE TRANSORAL UPPER GASTROINTESTINAL ENDOSCOPY WITH BIOPSIES AND COLONOSCOPY TILL CECUM WITH BIOPSIES, SNARE POLYPECTOMY AND HEMOCLIP PLACEMENT Pre-op diagnosis: GERD, abdominal pain, constipation and weight loss Post-op diagnosis: GERD, hiatal hernia, gastritis, gastric polyps, colon polyps, diverticulosis, hemorrhoids? Endoscopist:? Adelia Haddad MD Anesthesia:?MAC UPPER ENDOSCOPY Consent: Indications for the procedure and potential complications of bleeding, perforation, reaction to medications and missed diagnosis were discussed with the patient and informed consent was obtained. Instrument: Olympus GIF H 190 mid size upper endoscope Monitoring: Vital signs and clinical assessment, continuous EKG monitoring, Pulse oximetry, Carbon Dioxide monitoring and blood pressure monitoring were done throughout the procedure. Procedure: The patient was placed in the left lateral decubitis position and pre-procedure medications were administered and a bite block was placed. The endoscope was inserted into the mouth and advanced under direct vision to the third part of duodenum. A careful inspection was made as the upper endoscope was withdrawn including a retroflexed examination of the proximal stomach; Findings and interventions are described below. Findings: Larynx: Normal Esophagus: GE junction at 36 cms, small hiatal hernia 36 to 38 cms. Minimal focal esophagitis at GE junction. No Jennings's. Stomach: Multiple 2-5 mm benign appearing polyps in the gastric body - biopsied. Mild gastric erythema. Biopsies were obtained. Grade 3 flap valve on retroflexed examination of the cardia. Duodenum: Normal bulb and descending duodenum. Biopsies were obtained from 3rd part of duodenum to check for celiac sprue. Intervention: Biopsies as noted above COLONOSCOPY PROCEDURE NOTE Consent: Indications for the procedure and potential complications of bleeding, perforation, reaction to medications and missed diagnosis were discussed with the patient and informed consent was obtained. Instrument: Olympus PCF H 190 L variable stiffness pediatric colonoscope Monitoring: Vital signs and clinical assessment, intermittent blood pressure monitoring, continuous EKG monitoring, Pulse oximetry and Carbon Dioxide monitoring were done throughout the procedure. Colon withdrawl time was 40 minutes. Procedure: The patient was placed in the left lateral decubitis position and pre-procedure medications were administered. After a digital rectal examination of the ano-rectum, the video colonoscope was inserted into the rectum and advanced through the colon to the cecum. The colonoscope was slowly withdrawn in a retrograde panoramic fashion and the colon mucosa was carefully examined including a retroflexed view of the rectum. Findings and interventions are described below. Procedure Difficulty: : Colon was long and tortuous and there was some loop formation Findings: Terminal Ileum: Not evaluated Cecum: Normal Ascending Colon: Normal Transverse Colon: Normal Descending Colon: Moderate diverticulosis Sigmoid Colon: Patchy erythema overlying folds in the sigmoid colon - random biopsies were obtained. Severe diverticulosis with some luminal narrowing Rectum: A 2 to 2.5 cms sessile polyp in the distal rectum (just inside the anal verge - removed with a hot snare. Polypectomy site was closed with 1 hemoclip Ano-rectum: Moderate internal hemorrhoids Colon preparation: Good after copious irrigation Impression and Post Procedure Diagnosis: Endoscopy Findings: ESOPHAGUS: Small hiatal hernia 36 to 38 cms. Minimal focal esophagitis at GE junction. STOMACH: Mild gastritis and benign-appearing gastric polyps DUODENUM: Normal - biopsied to check for celiac sprue Colonoscopy Findings: One medium sized polyps removed Moderate to severe diverticulosis seen in the left colon Moderate hemorrhoids on retroflexed exam. No clear etiology found for weight loss and abdominal pain Of note - Abd CT scan in 01/2023 showed gallstones. Plan: Await pathology results Patient has an appointment on 12/14/23 in the GI Clinic with Adelia Haddad M.D. Repeat flexible sigmoidoscopy in 4-6 months to check polypectomy site in the recum if rectal polyps is adenomatous and 10 years if polyps are hyperplastic. Above findings were reviewed with the patient and Hiatal hernia, colon polyps and diverticulosis handouts were given in the discharge area Pt was advised to proceed with Abd CT scan as scheduled on 11/14/23 At [place]'s request, her daughter Maryjane ([phone]) was called and EGD and colonoscopy results were reviewed with her. Daughter attributes her weight loss to a inadequate PO intake. Pt appeared very anxious and tearful regarding her wt loss despite multiple re- assurances
[2023-10-31 14:37] VITALS: BP 135/69; PULSE 76; RESP 20; TEMP 36.4; O2SAT 97
[2023-10-31 15:53] VITALS: BP 107/49; PULSE 61; RESP 15; TEMP 36.5; O2SAT 97
[2023-10-31 16:08] VITALS: BP 118/58; PULSE 69; RESP 16; O2SAT 96
[2023-10-31 16:22] VITALS: BP 118/58; PULSE 71; RESP 16; O2SAT 98
== END 2023-10-31 17:00 | disposition home or self-care (01) ==
PROVIDERS: PCP Internal Medicine; Visit Provider Internal Medicine Gastroenterology
PROC: (CPT 43239; principal; 2023-10-31 13:50)
DX: K31.7 Polyp of stomach and duodenum (principal); K29.70 Gastritis, unspecified, without bleeding; K44.9 Diaphragmatic hernia without obstruction or gangrene; K21.9 Gastro-esophageal reflux disease without esophagitis; K59.00 Constipation, unspecified; R63.4 Abnormal weight loss; Z68.26 Body mass index [BMI] 26.0-26.9, adult; D12.8 Benign neoplasm of rectum; K56.2 Volvulus; K57.30 Diverticulosis of large intestine without perforation or abscess without bleeding; K64.8 Other hemorrhoids; I10 Essential (primary) hypertension; E78.00 Pure hypercholesterolemia, unspecified; Z85.3 Personal history of malignant neoplasm of breast
CPT/HCPCS: 43239; 45385; 45380; 88305; 88342; J2371; J2704

== ENCOUNTER → 2023-10-31 11:55 | Outpatient (BNV) | payer MEDICARE, SELFPAY | PROVIDERS: PCP Internal Medicine; Visit Provider Internal Medicine Gastroenterology | DX: Z12.11 Encounter for screening for malignant neoplasm of colon (principal); K21.9 Gastro-esophageal reflux disease without esophagitis; K29.70 Gastritis, unspecified, without bleeding; K31.7 Polyp of stomach and duodenum; K59.09 Other constipation; K57.30 Diverticulosis of large intestine without perforation or abscess without bleeding; K64.8 Other hemorrhoids; D12.8 Benign neoplasm of rectum | CPT/HCPCS: 43239; 45380; 45385 ==

== ENCOUNTER 2023-11-10 11:16 | Outpatient (REF) | payer MEDICARE, SELFPAY ==
--- NOTE | ~2023-11-10 | MM_ITS ---
EXAMINATION: MM SCREENING DIGITAL BREAST TOMOSYNTHESIS, BILATERAL CLINICAL INFORMATION: Screening. Asymptomatic. COMPARISON: Mammography: This study is compared with prior exams dating back to 2019. TECHNIQUE: Digital breast tomosynthesis is performed in both the craniocaudal and mediolateral oblique views along with computer-aided detection (CAD). Synthesized 2D images are generated from the tomosynthesis. FINDINGS: There are scattered areas of fibroglandular density (ACR BI-RADS breast composition Category b). There are no significant masses, abnormal calcifications, or other abnormalities. There is a coarse, benign macrocalcification in the upper outer quadrant of the right breast which is unchanged. There are a few MM/MM tomosynthesis screening BI bilateral, benign calcifications elsewhere in each breast. IMPRESSION: No mammographic evidence of malignancy. ASSESSMENT: BI-RADS BI-RADS 2 - Benign Findings RECOMMENDATION: Routine annual mammography screening. 1 year F/U This examination should not preclude the clinical evaluation of a suspicious palpable abnormality. This patient's information was entered into a reminder system with a target due date for their next mammogram.
== END 2023-11-10 11:17 | disposition home or self-care (01) ==
LOC: HO.MAMMO 11:16
PROVIDERS: PCP Internal Medicine; Visit Provider Internal Medicine
DX: Z12.31 Encounter for screening mammogram for malignant neoplasm of breast (principal)
CPT/HCPCS: 77063; 77067

== ENCOUNTER → 2023-11-10 11:45 | Outpatient (BNV) | payer MEDICARE, SELFPAY | PROVIDERS: PCP Internal Medicine; Visit Provider Radiology Diagnostic Radiology | DX: Z12.31 Encounter for screening mammogram for malignant neoplasm of breast (principal) | CPT/HCPCS: 77063; 77067 ==

== ENCOUNTER 2023-11-14 10:00 | Outpatient (REF) | payer MEDICARE, SELFPAY ==
--- NOTE | ~2023-11-14 | CT_ITS ---
EXAMINATION: CT ABDOMEN AND PELVIS WITH CONTRAST CLINICAL INFORMATION: Unintentional weight change COMPARISON: 02/08/2023 TECHNIQUE: Multidetector volumetric images were obtained from the superior aspect of the liver through the pubic symphysis following administration 85 mL of Omnipaque 350 intravenous contrast. Sagittal and coronal reformatted images were obtained on the technologist's workstation. Oral contrast: Was used This CT examination was performed using dose optimization techniques as appropriate, variously including the following: *Automated exposure control *Adjustment of mA and/or kV according to patient size (this includes techniques or standardized protocols for targeted exams where dose is matched to indication/reason for exam; i.e. extremities or head) *Use of iterative reconstruction technique DLP: 325 mGy-cm FINDINGS: LUNG BASES: The visualized lung bases are unremarkable. LIVER, GALLBLADDER, AND BILIARY TREE: The liver is normal in size, shape, and attenuation. No focal hepatic lesion or biliary ductal dilatation is present. Gallbladder distended with multiple stones and possibly masses or tumefactive sludge, correlate with right upper quadrant ultrasound. There is no pericholecystic fluid collection or wall thickening. CBD is not dilated. PANCREAS: Unremarkable. SPLEEN: Unremarkable. ADRENAL GLANDS: Unremarkable. KIDNEYS AND URETERS: The kidneys are normal in size, shape, and attenuation. No hydronephrosis, hydroureter, or calculi seen. No perinephric stranding. BLADDER: Incompletely distended urinary bladder revealed wall thickening possibly due to cystitis, correlate with urine tests. GASTROINTESTINAL TRACT: There is large amount of retained feces due to constipation. Appendix is unremarkable. There is no diverticulitis, but mild diverticulosis. Small bowel loops are unremarkable. There is small hiatal hernia. ABDOMINAL WALL: A small fat-containing umbilical hernia LYMPH NODES: Normal. VASCULAR: Abdominal aorta is nondilated but revealed atherosclerotic calcifications. PELVIC VISCERA: Uterus is enlarged, retroverted with multiple calcified and noncalcified masses, statistically most likely uterine fibroids. There is no pelvic ascites and no adnexal masses seen. OSSEOUS STRUCTURES: There are degenerative changes seen lower lumbar spine but no lytic or blastic lesions. There are degenerative changes in both hip joints more prominent on the right. CT/CT abdomen pelvis w IV con IMPRESSION: 1. Cholelithiasis and possibly tumefactive sludge or small masses, stable since previous study without evidence of cholecystitis, correlate with right upper quadrant ultrasound. 2. Constipation and diverticulosis. 3. Small hiatal hernia 4. Fibroid uterus, no interval change. 5. Degenerative changes in both hip joints and lumbar spine. 6. Urinary bladder wall thickening, correlate with urine tests. Fleischner guidelines were followed.
[2023-11-14] MEDS: iohexoL 350 MG/ML 75 ML INFUS..BTL 85 ML IV (11:02)
[2023-11-15 10:42] LABS: Creatinine POC 0.7 mg/dL (0.5-1.4); GFR POC > 60
== END 2023-11-14 10:01 | disposition home or self-care (01) ==
LOC: HO.CT 10:00
PROVIDERS: PCP Internal Medicine; Visit Provider Internal Medicine
DX: R68.89 Other general symptoms and signs (principal)
CPT/HCPCS: 74177; 82565; Q9967

== ENCOUNTER 2023-12-05 10:08 | Outpatient (REF) | payer MEDICARE, SELFPAY ==
[2023-12-05 10:38] LABS: MANUAL DIFF FLAG NO
[2023-12-05 11:15] LABS: Basophils Absolute Auto 0.1 X10*3/uL (0.0-0.2); Basophils Percent Auto 0.7 % (0-2); Eosinophils Absolute Auto 0.1 X10*3/uL (0.0-0.4); Eosinophils Percent Auto 1.2 % (0-4); Hematocrit 41.2 % (37.0-47.0); Hemoglobin 13.4 g/dl (12.0-16.0); Imm Gran Abs Auto 0.04 X10*3/uL (0.00-0.03); Imm Gran Pct Auto 0.5 % (0.0-0.4); Lymphocytes Absolute Auto 1.4 X10*3/uL (1.2-4.9); Lymphocytes Percent Auto 15.8 % (20-40); Mean Corpuscular HGB Conc 32.5 g/dl (31.0-35.0); Mean Corpuscular Hemoglobin 31.1 pg (27.0-33.0); Mean Corpuscular Volume 95.6 fL (80.0-98.0); Mean Platelet Volume 9.6 fL (9.4-12.3); Monocytes Absolute Auto 0.6 X10*3/uL (0.1-1.2); Monocytes Percent Auto 6.6 % (2-11); Neutrophils Absolute Auto 6.5 x10*3/uL (2.0-8.3); Neutrophils Percent Auto 75.2 % (45-73); Platelet Count 312 X10*3/uL (160-400); Red Blood Count 4.31 X10*6/uL (4.20-5.50); White Blood Count 8.6 X10*3/uL (4.8-10.8)
[2023-12-05 12:40] LABS: Alanine Aminotransferase 8 U/L (0-31); Albumin Level 4.2 g/dL (3.5-5.0); Alkaline Phosphatase 88 U/L (39-117); Anion Gap 13 (12-20); Aspartate Amino Transferase 14 U/L (5-31); Bilirubin Total 0.7 mg/dL (0.0-1.0); Blood Urea Nitrogen 13 mg/dL (9-16); Calcium 10.5 mg/dL (8.4-10.2); Carbon Dioxide 28 mmol/L (22-29); Chloride 104 mmol/L (96-108); Cholesterol 178 mg/dL (<200); Estimated Glomerular Filt Rate > 60; Glucose Fasting 112 mg/dL (60-99); HDL Cholesterol 57 mg/dL (>40); LDL Cholesterol Calculated 99 mg/dL (<100); Sodium 141 mmol/L (135-145); TSH reflex Free T4 0.59 uIU/mL (0.32-4.0); Total Protein 7.6 g/dL (6.5-8.0); Triglycerides 111 mg/dL (<150); Vitamin D 25-OH Total 46.3 ng/mL (>30)
== END 2023-12-05 10:09 | disposition home or self-care (01) ==
LOC: HO.LAB 10:08
PROVIDERS: PCP Internal Medicine; Visit Provider Internal Medicine
DX: I10 Essential (primary) hypertension (principal); R30.0 Dysuria; R31.21 Asymptomatic microscopic hematuria; E55.9 Vitamin D deficiency, unspecified; E78.00 Pure hypercholesterolemia, unspecified
CPT/HCPCS: 36415; 80053; 80061; 82306; 84443; 85025

== ENCOUNTER 2023-12-14 12:11 | Outpatient (AMB) | payer MEDICARE, SELFPAY ==
--- NOTE | 2023-12-14 12:21 | A.OFFVIS_ITS ---
Intake Vital Signs 12/14/23 12:24 Height 5 ft 2 in Weight 148 lb BMI 27.1 BP 124/58 L Blood Pressure Location Lt brachial Position Sitting Pulse 91 Intake Visit Reasons: s/p egd/colon Giorgio pt Intake Note: Patient follow up for EGD/Colonoscopy results; Patient cc: abdominal pain with bloating on and off, burping, between diarrhea and constipation, and some dysphagia with meats. Network Security Administrator Required: No Accompanied by: Self / Same As Patient Allergies Penicillins Allergy (Mild, Verified 12/14/23 12:20) HIVES codeine Allergy (Unknown, Verified 12/14/23 12:20) nausea Medication List - Last Reconciled 12/14/23 by Adelia Haddad MD amlodipine 10 mg PO DAILY 90 days cholecalciferol (vitamin D3) 25 mcg PO DAILY 90 days famotidine 20 mg PO BID 90 days [LIGHTWEIGHT ROLLATOR As directed] lisinopril 40 mg PO DAILY 90 days lorazepam 0.5 mg PO TID PRN 30 days polyethylene glycol 3350 (Miralax) 17 grams PO DAILY psyllium husk (Metamucil) 0.4 grams PO DAILY 90 days sertraline 25 mg PO DAILY 90 days simethicone (Gas Relief (simethicone)) 125 mg PO ONCE PRN simvastatin 20 mg PO BEDTIME 90 days tramadol 50 mg PO TID PRN HPI s/p egd/colon Giorgio pt HPI Details GI clinic visit for this 78 YF for follow-up of right lower quadrant pain, change in bowel habits and unintentional weight loss [facility] IM[facility] STUDIES: 11/14/[address] scan showed: 1. Cholelithiasis and possibly tumefact owen sludge or small masses, stable since previous study without evidence of cholecystitis, correlate with right upper quadrant ultrasound. 2. Constipation and diverticulosis. 3. Small hiatal hernia 4. Fibroid uterus, no interval change. 5. Degenerative changes in both hip sherry nts and lumbar spine. 6. Urinary bladder wall thickening, cor relate with urine tests. ENDOSCOPIC STUDIES: 10/31/23 EGD AND COLON SHOWED: Endoscopy Findings: ESOPHAGUS: Small hiatal hernia 36 to 38 cms. Minimal focal esophagitis at GE junction. STOMACH: Mild gastritis and benign-appearing gastric polyps DUODENUM: Normal - biopsied to check for celiac sprue Colonoscopy Findings: One medium sized polyps removed Moderate to severe diverticulosis seen in the left colon Moderate hemorrhoids on retroflexed exam. No clear etiology found for weight loss and abdominal pain Of note - Abd CT scan in 01/2023 showed gallstones. Plan: Repeat flexible sigmoidoscopy in 4-6 months to check polypectomy site in the recum if rectal polyps is adenomatous and 10 years if polyps are hyperplastic. Above findings were reviewed with the patient and Hiatal hernia, colon polyps and diverticulosis handouts were given in the discharge area Pt was advised to proceed with Abd CT scan as scheduled on 11/14/23 At [place]'s request, her daughter Maryjane ([phone]) was called and EGD and colonoscopy results were reviewed with her. Daughter attributes her weight loss to a inadequate PO intake. Pt appeared very anxious and tearful regarding her wt loss despite multiple re- assurance TODAY'S VISIT: Patient cc: abdominal pain with bloating on and off, burping, between diarrhea and constipation, and some dysphagia with meats. EGD and colon and Abd CT results were reviewed with the patient. Complains of RLQ pain and increased frequency of micturation without burning. Pt complains of constipation alternating with diarrhea. Constipation has improved since she had her colonoscopy. Takes generic version of Miralax every 2nd or 3rd day. Patient denies symptoms of heartburn, dysphagia, nausea, vomiting, change in appetite or weight. Denies recent change in bowel habits, constipation, diarrhea, black stools or rectal bleeding. Patient denies major cardiac or pulmonary problems, loud snoring or sleep apnea Denies problems with anesthesia in the past. Denies being on chronic anticoagulation. Patient denies known family history of colon polyps, colon cancer or other GI malignancies. PAST GI HISTORY BY REVIEW OF MEDICAL RECORDS: Ddx for RLQ pain with change in bowel habits and unintentional weight loss include malignancy, diverticular disease, - IBS-C less likely given weight loss. Will arrange for urgent endoscopic work up and imaging. Plan: - Labs ordered as below - EGD/colo to be booked in a few weeks. Split PEG prep was reviewed with the pt and handout provided as well. - CT Abd/pel with IV contrast ordered - Pt was advised to increase hydration a nd take miralax as needed for constipation. - Of note- mild hypercalcemia noted and will check ionized [facility] Medical History (Updated 12/14/23 @ 12:49 by Adelia Haddad MD) Breast cancer Overweight (BMI 25.0-29.9) Depression Anxiety Venous insufficiency of both lower extremities Nocturnal leg cramps Allergic rhinitis Constipation GERD without esophagitis Vitamin D deficiency Impaired fasting glucose Pure hypercholesterolemia Benign essential hypertension Surgical History History of esophagogastroduodenoscopy (EGD) H/O lumpectomy History of lumpectomy of right breast History of colonoscopy Family History Father Hypertension Stroke Mother Stroke Hypertension Social History Household Members: None Housing: Apartment Housing Other:: Independent living Alcohol intake: current Alcohol intake frequency: holidays/special occasions only Alcohol type: wine Patient Tobacco Use Status: Never used Tobacco e-Cigarette/Vaping Use: Never Used Second Hand Smoke Exposure: Yes service: No Current occupational status: retired Cognitive needs: Yes (cane) Hearing needs: Yes Vision needs: Yes Review of Systems Const All systems reviewed & are unremarkable except as noted in HPI and below Physical Exam Vital Signs: BMI result Body Mass Index 27.1 Gen appear: NAD HEENT: nonicteric, no cervical lymphadenopathy Chest: CTA CVS: Regular S1/S2 Abd: soft, nontender, nondistended, bowel sounds + Ext: no peripheral edema Neuro: A/Ox3, noted to move all extremities spontaneously Psych: interacting appropriately Assessment & Plan Assessment & Plan (1) Abnormal CT scan, gallbladder: Code(s): R93.2 - Abnormal findings on diagnostic imaging of liver and biliary tract (2) Gallstones: Code(s): K80.20 - Calculus of gallbladder without cholecystitis without obstruction (3) Frequency of micturition: Code(s): R35.0 - Frequency of micturition Plan 78 YF with RLQ pain with change in bowel habits and unintentional weight loss 10/31/23 EGD and colonoscopy was performed and findings as noted above 11/14/[address] scan showed Cholelithiasis and possibly tumefactive sludge or small masses, Constipation and diverticulosis, Fibroid uterus, no interval change and Urinary bladder wall thickening, correlate with urine tests. Plan: 1. Abd US to FU on abnormal gallbladder noted on CT scan 2. Urine analysis and urine cytology - as ordered by Dr Bucio. She may need referral to Urology. 3. Flexible sigmoidoscopy with colon prep to FU on a 2 to 2.5 cms rectal polyp. At [place]'s request, her daughter Maryjane ([phone]) was called and EGD, colonoscopy and abdominal CT results and fu plans were reviewed with her. Daughter attributes her weight loss to a inadequate PO intake. FU in 6 weeks after abdominal US Orders: Orders US abdomen limited Today K80.20 - Calculus of gallbladder without cholecystitis without obstruction, R93.2 - Abnormal findings on diagnostic imaging of liver and biliary tract UA CC w/rflx Micro + Cult Today R35.0 - Frequency of micturition Coding Level of Care Code Est Pt Level 4 (38921) Diagnoses Abnormal CT scan, gallbladder R93.2 Gallstones K80.20 Frequency of micturition R35.0 Time Spent (min) 26
[2023-12-14 12:24] VITALS: BP 124/58; PULSE 91; BMI 27.1
== END 2023-12-14 12:54 | disposition home or self-care (01) ==
PROVIDERS: PCP Internal Medicine; Visit Provider Internal Medicine Gastroenterology
DX: R93.2 Abnormal findings on diagnostic imaging of liver and biliary tract (principal); K80.20 Calculus of gallbladder without cholecystitis without obstruction; R35.0 Frequency of micturition
CPT/HCPCS: 99214

== ENCOUNTER → 2023-12-14 12:11 | Outpatient (BNVA) | payer MEDICARE, SELFPAY | PROVIDERS: PCP Internal Medicine; Visit Provider Internal Medicine Gastroenterology | DX: R93.2 Abnormal findings on diagnostic imaging of liver and biliary tract (principal); K80.20 Calculus of gallbladder without cholecystitis without obstruction; R35.0 Frequency of micturition | CPT/HCPCS: 99212 ==

== ENCOUNTER 2024-01-02 09:30 | Outpatient (REF) | payer MEDICARE, SELFPAY ==
--- NOTE | ~2024-01-02 | US_ITS ---
EXAMINATION: US ABDOMEN LIMITED CLINICAL INFORMATION: Calculus of the gallbladder without cholecystitis without obstruction. COMPARISON: CT scan abdomen and pelvis 11/14/2023 TECHNIQUE: Real-time imaging of the right upper quadrant abdominal viscera. FINDINGS: PANCREAS: The pancreas is obscured by bowel gas. LIVER: Normal. The liver is normal in size. The liver contour is normal. Parenchymal echogenicity is normal. No focal hepatic lesion. There is no intrahepatic biliary duct dilatation seen. GALLBLADDER: There are 2 large stones within the gallbladder including 5.5 x 2.7 x 2.8 cm and 2.3 x 1.6 x 1.7 cm. Tiny stones are seen within the fundus of the gallbladder. The gallbladder is physiologically distended without evidence of sludge, polyps, wall thickening or pericholecystic fluid. COMMON BILE DUCT: Normal in caliber measuring 0.6 cm in diameter. RIGHT KIDNEY: Normal. No hydronephrosis. No renal calculi or focal parenchymal lesions. The kidney measures 9.9 cm in maximum dimension. FREE FLUID: None. US/US abdomen limited IMPRESSION: 1. Cholelithiasis. 2. The pancreas is obscured by bowel gas.
== END 2024-01-02 09:31 | disposition home or self-care (01) ==
LOC: HO.US 09:30
PROVIDERS: PCP Internal Medicine; Visit Provider Internal Medicine Gastroenterology
DX: K80.20 Calculus of gallbladder without cholecystitis without obstruction (principal); R93.2 Abnormal findings on diagnostic imaging of liver and biliary tract
CPT/HCPCS: 76705

== ENCOUNTER 2024-02-01 11:53 | Outpatient (AMB) | payer MEDICARE, SELFPAY ==
--- NOTE | 2024-02-01 11:55 | A.OFFVIS_ITS ---
Vital Signs 02/01/24 12:03 Height 5 ft 2 in Weight 143 lb BMI 26.2 BP 128/59 L Blood Pressure Location Lt brachial Position Sitting Pulse 85 Intake Visit Reasons: 6 week follow up Intake Note: Patient follow up for Patient cc: abdominal pain on and off, acid reflex come and go with burping, and between diarrhea and constipation on and off. 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 Required: No Accompanied by: Family/Other Allergies Penicillins Allergy (Mild, Verified 06/14/24 10:54) HIVES codeine Allergy (Unknown, Verified 06/14/24 10:54) nausea Medication List - Last Reconciled 02/01/24 by Adelia Haddad MD amlodipine 10 mg PO DAILY 90 days cholecalciferol (vitamin D3) 25 mcg PO DAILY 90 days famotidine 20 mg PO BID 90 days [LIGHTWEIGHT ROLLATOR As directed] lisinopril 40 mg PO DAILY 90 days lorazepam 0.5 mg PO TID PRN 30 days polyethylene glycol 3350 (Miralax) 17 grams PO DAILY psyllium husk (Metamucil) 0.4 grams PO DAILY 90 days sertraline 25 mg PO DAILY 90 days simethicone (Gas Relief (simethicone)) 125 mg PO ONCE PRN simvastatin 20 mg PO BEDTIME 90 days tramadol 50 mg PO TID PRN HPI HPI 6 week follow up: Details: GI clinic visit for this 78 YF for follow-up of right lower quadrant pain, change in bowel habits and unintentional weight loss [facility] : Reviewed IMAGING STUDIES: 01/02/24 ABD US SHOWED: LIVER: Normal. The liver is normal in size. The liver contour is normal. Parenchymal echogenicity is normal. No focal hepatic lesion. There is no intrahepatic biliary duct dilatation seen. GALLBLADDER: There are 2 large stones within the gallbladder including 5.5 x 2.7 x 2.8 cm and 2.3 x 1.6 x 1.7 cm. Tiny stones are seen within the fundus of the gallbladder. The gallbladder is physiologically distended without evidence of sludge, polyps, wall thickening or pericholecystic fluid. COMMON BILE DUCT: Normal in caliber measuring 0.6 cm in diameter. 11/14/[address] scan showed: 1. Cholelithiasis and possibly tumefactive sludge or small masses,stable since previous study without evidence of cholecystitis, correlate with right upper quadrant ultrasound. 2. Constipation and diverticulosis. 3. Small hiatal hernia 4. Fibroid uterus, no interval change. 5. Degenerative changes in both hip joints and lumbar spine. 6. Urinary bladder wall thickening, correlate with urine tests. ENDOSCOPIC STUDIES: 10/31/23 EGD AND COLON SHOWED: Endoscopy Findings: ESOPHAGUS: Small hiatal hernia 36 to 38 cms. Minimal focal esophagitis at GE junction. STOMACH: Mild gastritis and benign-appearing gastric polyps DUODENUM: Normal - biopsied to check for celiac sprue Colonoscopy Findings: One medium sized polyps removed Moderate to severe diverticulosis seen in the left colon Moderate hemorrhoids on retroflexed exam. No clear etiology found for weight loss and abdominal pain Of note - Abd CT scan in 01/2023 showed gallstones. Plan: Repeat flexible sigmoidoscopy in 4-6 months to check polypectomy site in the recum if rectal polyps is adenomatous and 10 years if polyps are hyperplastic. Above findings were reviewed with the patient and Hiatal hernia, colon polyps and diverticulosis handouts were given in the discharge area Pt was advised to proceed with Abd CT scan as scheduled on 11/14/23 At [place]'s request, her daughter Maryjane ([phone]) was called and EGD and colonoscopy results were reviewed with her. Daughter attributes her weight loss to a inadequate PO intake. Pt appeared very anxious and tearful regarding her wt loss despite multiple re- assurance TODAY'S VISIT: Patient cc: abdominal pain on and off, acid reflex come and go with burping, and between diarrhea and constipation on and off. Complains of intermittent constipation alternating with diarrhea x past several yrs Notes intermittent pain in the right groin area (? since after her colonoscopy) and takes acetaminophen PAST VISITS: Patient cc: abdominal pain with bloating on and off, burping, between diarrhea and constipation, and some dysphagia with meats. EGD and colon and Abd CT results were reviewed with the patient. Complains of RLQ pain and increased frequency of micturation without burning. Pt complains of constipation alternating with diarrhea. Constipation has improved since she had her colonoscopy. Takes generic version of Miralax every 2nd or 3rd day. Patient denies symptoms of heartburn, dysphagia, nausea, vomiting, change in appetite or weight. Denies recent change in bowel habits, constipation, diarrhea, black stools or rectal bleeding. Patient denies major cardiac or pulmonary problems, loud snoring or sleep apnea Denies problems with anesthesia in the past. Denies being on chronic anticoagulation. Patient denies known family history of colon polyps, colon cancer or other GI malignancies. PAST GI HISTORY BY REVIEW OF MEDICAL RECORDS: Ddx for RLQ pain with change in bowel habits and unintentional weight loss include malignancy, diverticular disease, - IBS-C less likely given weight loss. Will arrange for urgent endoscopic work up and imaging. Plan: - Labs ordered as below - EGD/colo to be booked in a few weeks. Split PEG prep was reviewed with the pt and handout provided as well. - CT Abd/pel with IV contrast ordered - Pt was advised to increase hydration and take miralax as needed for constipation. - Of note- mild hypercalcemia noted and will check ionized calcium PFSH Medical History Hx of flexible sigmoidoscopy Breast cancer Overweight (BMI 25.0-29.9) Depression Anxiety Venous insufficiency of both lower extremities Nocturnal leg cramps Allergic rhinitis Constipation GERD without esophagitis Vitamin D deficiency Impaired fasting glucose Pure hypercholesterolemia Benign essential hypertension Surgical History History of esophagogastroduodenoscopy (EGD) H/O lumpectomy History of lumpectomy of right breast History of colonoscopy Family History Father Hypertension Stroke Mother Stroke Hypertension Social History Household Members: None Housing: Apartment Housing Other:: Independent living Alcohol intake: current Alcohol intake frequency: holidays/special occasions only Alcohol type: wine Patient Tobacco Use Status: Never used Tobacco e-Cigarette/Vaping Use: Never Used Second Hand Smoke Exposure: Yes service: No Current occupational status: retired Cognitive needs: Yes (cane) Hearing needs: Yes Vision needs: Yes Review of Systems Const All systems reviewed & are unremarkable except as noted in HPI and below Physical Exam Vital Signs: Last Vital Signs Pulse 85 02/01/24 12:03 BP 128/59 L 02/01/24 12:03 BMI result Body Mass Index 26.2 Const General: healthy appearing and no acute distress Nutritional Appearance: average body habitus Orientation/consciousness: patient oriented x3 Limitations: ambulation with walker HEENT Head: Yes normal to inspection Ears: hearing grossly normal bilaterally Eyes Sclerae: sclerae normal Pupils: Equal, round and reactive pupils present Neck Neck: Yes normal visual inspection Chest Chest palpation & inspection: normal inspection of the chest Resp Effort & Inspection: normal respiratory effort Auscultation: clear to auscultation bilaterally Cardio Palpation: normal PMI Rate: regular rate Rhythm: regular rhythm Heart sounds: S1 normal heart sound present, S2 normal heart sound present and no murmurs GI Palpation (GI): Soft to palpation, nontender and No hepatosplenomegaly present Auscultation: normal bowel sounds Rectal Exam - Female: deferred Skin General skin exam: no rashes or lesions noted Neuro General: patient oriented x3, gait normal and moves all extremities Cranial nerves: Yes Equal, round and reactive pupils present Psych Appearance: grossly normal Mental Status: mental status grossly normal Assessment & Plan Assessment & Plan (1) Abnormal CT scan, gallbladder: Code(s): R93.2 - Abnormal findings on diagnostic imaging of liver and biliary tract Category: Medical (2) Gallstones: Code(s): K80.20 - Calculus of gallbladder without cholecystitis without obstruction Category: Medical (3) Unintentional weight change: Code(s): R68.89 - Other general symptoms and signs Category: Medical (4) Abdominal pain: Code(s): R10.9 - Unspecified abdominal pain Category: Medical Qualifiers: Abdominal location: generalized Qualified Code(s): R10.84 - Generalized abdominal pain (5) Colon cancer screening: Code(s): Z12.11 - Encounter for screening for malignant neoplasm of colon Category: Medical (6) Right lower quadrant abdominal pain: Code(s): R10.31 - Right lower quadrant pain Category: Medical (7) GERD without esophagitis: Code(s): K21.9 - Gastro-esophageal reflux disease without esophagitis Category: Medical (8) Constipation: Code(s): K59.00 - Constipation, unspecified Category: Medical Qualifiers: Constipation type: unspecified constipation type Qualified Code(s): K59.00 - Constipation, unspecified Plan 78 YF with RLQ pain with change in bowel habits and unintentional weight loss 10/31/23 EGD and colonoscopy was performed and findings as noted above 11/14/[address] scan showed Cholelithiasis and possibly tumefactive sludge or small masses, Constipation and diverticulosis, Fibroid uterus, no interval change and Urinary bladder wall thickening, correlate with urine tests. Plan: 1. Abd US to FU on abnormal gallbladder noted on CT scan 2. Urine analysis and urine cytology - as ordered by Dr Bucio. She may need referral to Urology. 3. Flexible sigmoidoscopy with colon prep to FU on a 2 to 2.5 cms rectal polyp. At [place]'s request, her daughter Maryjane ([phone]) was called and EGD, colonoscopy and abdominal CT results and fu plans were reviewed with her. Daughter attributes her weight loss to a inadequate PO intake. 02/01/24 Complains of intermittent constipation alternating with diarrhea x past several yrs Notes intermittent pain in the right groin area (? since after her colonoscopy) and takes acetaminophen 04/2024 COLONOSCOPY WAS PERFORMED BY DR ERVIN: Mucosa: Small amount of solid stool which was flushed away. Previous polypectomy scar noted just inside the anorectal junction above the dentate line. No residual polyp was noted under white light or NBI. Protruding lesions: * Medium internal hemorrhoids without stigmata of recent bleeding. Excavated lesions: * Severe diverticulosis of left sided colon. Impression: 1. Previous polypectomy scar, no residual polyp. 2. Diverticulosis 3. External and internal hemorrhoids Recommendations: - Repeat colonoscopy for CRC screening not recommended due to age. FU in 4 months Coding Level of Care Code Est Pt Level 4 (70082) Diagnoses Abnormal CT scan, gallbladder R93.2 Gallstones K80.20 Unintentional weight change R68.89 Generalized abdominal pain R10.84 Abdominal location: generalized Colon cancer screening Z12.11 Right lower quadrant abdominal pain R10.31 GERD without esophagitis K21.9 Constipation, unspecified constipation type K59.00 Constipation type: unspecified constipation type Time Spent (min) 22
[2024-02-01 12:03] VITALS: BP 128/59; PULSE 85; BMI 26.2
== END 2024-02-01 12:50 | disposition home or self-care (01) ==
PROVIDERS: PCP Internal Medicine; Visit Provider Internal Medicine Gastroenterology
DX: R93.2 Abnormal findings on diagnostic imaging of liver and biliary tract (principal); K80.20 Calculus of gallbladder without cholecystitis without obstruction; R68.89 Other general symptoms and signs; R10.84 Generalized abdominal pain; Z12.11 Encounter for screening for malignant neoplasm of colon; R10.31 Right lower quadrant pain; K21.9 Gastro-esophageal reflux disease without esophagitis; K59.00 Constipation, unspecified
CPT/HCPCS: 99214

== ENCOUNTER → 2024-02-01 11:53 | Outpatient (BNVA) | payer MEDICARE, SELFPAY | PROVIDERS: PCP Internal Medicine; Visit Provider Internal Medicine Gastroenterology | DX: R93.2 Abnormal findings on diagnostic imaging of liver and biliary tract (principal); K80.20 Calculus of gallbladder without cholecystitis without obstruction; R68.89 Other general symptoms and signs; R10.84 Generalized abdominal pain; R10.31 Right lower quadrant pain; K21.9 Gastro-esophageal reflux disease without esophagitis; K59.00 Constipation, unspecified | CPT/HCPCS: 99212 ==

== ENCOUNTER 2024-02-05 13:01 | Outpatient (AMB) | payer MEDICARE, SELFPAY ==
--- NOTE | 2024-02-05 13:05 | A.OFFPC_ITS ---
Vital Signs 02/05/24 13:07 Height 5 ft 2 in Weight 144 lb 4 oz BMI 26.4 BP 132/66 Blood Pressure Location Lt brachial Position Sitting Pulse 80 Pulse Source Pulse Oximeter Pulse Oximetry (%) 98 Oxygen Delivery Method Room Air Intake Visit Reasons: hyperlipidemia, HTN, anxiety, chronic constipation Intake Note: Patient is here to follow up on HTN, Anxiety, Hyperlipidemia, Chronic Constipation. Technology Lead Required: No Door Machine Operator: Not Required per policy Accompanied by: Self / Same As Patient Allergies Penicillins Allergy (Mild, Verified 02/05/24 13:31) HIVES codeine Allergy (Unknown, Verified 02/05/24 13:31) nausea Medication List - Last Reconciled 02/05/24 by Clifford Bucio MD amlodipine 10 mg PO DAILY 90 days cholecalciferol (vitamin D3) 25 mcg PO DAILY 90 days famotidine 20 mg PO BID 90 days [LIGHTWEIGHT ROLLATOR As directed] lisinopril 40 mg PO DAILY 90 days lorazepam 0.5 mg PO TID PRN 30 days polyethylene glycol 3350 (Miralax) 17 grams PO DAILY psyllium husk (Metamucil) 0.4 grams PO DAILY 90 days sertraline 25 mg PO DAILY 90 days simethicone (Gas Relief (simethicone)) 125 mg PO ONCE PRN simvastatin 20 mg PO BEDTIME 90 days tramadol 50 mg PO TID PRN Tobacco use date assessed: 02/05/24 Fall risk assessment: No Falls in past year Last assessed Fall Risk: 02/05/24 Dental Screening Dental Screen Date: 02/05/24 Did you have a dental visit in the last 12 months?: Yes Did you have a dental problem in the last 6 months where you did not have access to dental care?: No Was dental information given to patient?: Patient has dentist HPI hyperlipidemia, HTN, anxiety, chronic constipation HPI Details Patient comes in today for her follow up visit States that she feels okay She denies any headaches or dizziness Denies any chest pains, no SOB No nausea/vomiting, still has on and off right-sided abdominal pain and occasional diarrhea/loose stools but otherwise, no significant change in bowel h abits are noted She has been seeing Dr. Haddad for her GI issues recently and she is now scheduled to have a sigmoidoscopy/colonoscopy done in early April 2024 Needs a few of her Rx refilled Had her follow up labs done a couple of months ago - to discuss her results She is also currently using a rollator when she walks and moves around as she continues to feel unsteady on her feet She was referred to PT for her unsteady gait last year but did not go and now would like to get a new referral for PT [facility] Medical History Breast cancer Overweight (BMI 25.0-29.9) Depression Anxiety Venous insufficiency of both lower extremities Nocturnal leg cramps Allergic rhinitis Constipation GERD without esophagitis Vitamin D deficiency Impaired fasting glucose Pure hypercholesterolemia Benign essential hypertension Surgical History History of esophagogastroduodenoscopy (EGD) H/O lumpectomy History of lumpectomy of right breast History of colonoscopy Family History Father Hypertension Stroke Mother Stroke Hypertension Social History Household Members: None Housing: Apartment Housing Other:: Independent living Alcohol intake: current Alcohol intake frequency: holidays/special occasions only Alcohol type: wine Patient Tobacco Use Status: Never used Tobacco e-Cigarette/Vaping Use: Never Used Second Hand Smoke Exposure: Yes service: No Current occupational status: retired Cognitive needs: Yes (cane) Hearing needs: Yes Vision needs: Yes Questionnaire PHQ-9 Over the last 2 weeks, how often have you been bothered by any of the following problems? 1. Little interest or pleasure in doing things: not at all 2. Feeling down, depressed, or hopeless: several days 3. Trouble falling or staying asleep, or sleeping too much: several days 4. Feeling tired or having little energy: several days 5. Poor appetite or overeating: not at all 6. Feeling bad about yourself - or that you are a failure or have let yourself or your family down: not at all 7. Trouble concentrating on things, such as reading the newspaper or watching television: not at all 8. Moving or speaking so slowly that other people could have noticed. Or the opposite - being so fidgety or restless that you have been moving around a lot more than usual: not at all 9. Thoughts that you would be better off or of hurting yourself in some way: not at all Total score: 3 Depression Screening Interpretation: Positive Depression Screening Follow-up: Existing condition and In treatment Depression Screening Done: Yes 20773 - PHQ-9 Billing: Yes Source: Developed by Drs. Woodrow Ortega, Kaitlyn Winters, Ihsan Novoa and colleagues, with an educational kirby from [employer]. Thrive Questionnaire Date Thrive assessed: 02/05/24 I am a: Patient What is your living situation today?: I have a steady place to live Within the past 12 months, did the food you bought not last and you didn't have the money to get more?: Never true Within the past 12 months, did you worry whether your food would run out before you got money to buy more?: Never true Do you have trouble paying for medicines?: No Do you have trouble getting transportation to medical appointments?: No Do you have trouble paying your heating and electricity bill?: No Do you have trouble taking care of your child, family member or friend?: No Do you have trouble with day-to-day activities such as bathing, preparing meals, shopping, managing finances, etc.?: No Are you currently unemployed and looking for a job?: No Are you interested in more education?: No Currently or been in a relationship where the following occur: no concerns reported THRIVE Score: 0 AUDIT C Alcohol Use Questionnaire (AUDIT-C) 1. How often do you have a drink containing alcohol?: Monthly or less 2. How many drinks containing alcohol do you have on a typical day when you are drinking?: 1 or 2 Total Score: 1 Score Reviewed/Action Taken: Yes ANURADHA-7 AMB Questionnaire ANURADHA-7 Date ANURADHA - 7 assessed: 02/05/24 Feeling nervous, anxious, or on edge: 1 = Several days Not being able to stop or control worryin = Several days Worrying too much about different things: 1 = Several days Trouble relaxin = Not at all Being so restless that it is hard to sit still: 0 = Not at all Becoming easily annoyed or irritable: 0 = Not at all Feeling afraid as if something awful might happen: 1 = Several days Total ANURADHA-7 score (0-4 normal; 5-9 mild; 10-14 moderate; 15-21 severe): 4 Source: Developed by Drs. Woodrow Ortega, Kaitlyn Winters, Ihsan Novoa and colleagues, with an educational kirby from [employer]. Review of Systems Const Denies chills, Denies fatigue, Denies fever(s) and Denies headache(s) ENT Denies dysphagia, Denies dizziness, Denies otalgia, Denies headache(s), Denies neck pain, Denies odynophagia and Denies sore throat Card Denies chest pain, Denies palpitations and Denies dyspnea Resp Denies cough, Denies dyspnea and Denies wheezing GI Reports abdominal pain (occasional cramping pain over the right lower abdomen), Reports constipation, Denies dysphagia, Denies heartburn, Reports diarrhea (had bouts of diarrhea yesterday - see HPI), Denies nausea, Denies odynophagia and D enies vomiting Denies nocturia, Denies dysuria, Reports urinary incontinence and Denies urinary urgency Musc Denies back pain, Denies arthralgias, Reports muscle weakness (over both legs at times) and Denies neck pain Skin/Breast Denies rash Neuro Denies dizziness and Denies headache(s) Psych Reports anxiety (increased; chronic - worries incessantly over everything) Endo Denies fatigue and Denies palpitations Aller/Immun Denies wheezing Physical exam (Primary Care) Vital Signs: Last Vital Signs Pulse 80 02/05/24 13:07 BP 132/66 02/05/24 13:07 Pulse Ox 98 02/05/24 13:07 Oxygen Delivery Method Room Air 02/05/24 13:07 BMI result Body Mass Index 26.4 Tobacco/Smoking Status: Tobacco use Status Tobacco use date assessed 02/05/24 02/05/24 13:19 Patient Tobacco Use Status Never used Tobacco 02/05/24 13:19 e-Cigarette/Vaping Use Never Used 02/05/24 13:19 PHQ-9: PHQ-9 Score PHQ-9: Total score 3 02/05/24 13:38 Depression Screening Interpretation: Positive Depression Screening Follow-up: Existing condition and In treatment Thrive Assessment: Date of Thrive Assessment Date Thrive assessed 02/05/24 02/05/24 13:19 Currently or been in a relationship where the following occur: no concerns reported Const General: no acute distress and alert HENMT Ears: TM's normal bilaterally and EAC's normal Throat: Yes posterior oropharynx normal and Yes tonsils normal Neck Neck: Yes no lymphadenopathy and Yes supple Thyroid: Thyroid normal Lymphatic: no lymphadenopathy noted Resp Auscultation: clear to auscultation bilaterally, no rales and no wheezes Cardio Rate: regular rate Rhythm: regular rhythm Heart sounds: no murmurs GI Palpation (GI): Tenderness to palpation present (GI) (diffuse discomfort and mild tenderness on palpation) in the RLQ (tenderness on palpation but no guarding), no guarding and No Rebound tenderness present General: Yes no CVA tenderness Back/Spine/Pelvis Back: no CVA tenderness Skin Rashes: no rashes Extrem General: Yes no clubbing, cyanosis or edema Psych Affect: Anxious affect present Results Reviewed Results Reviewed: Laboratory Tests 12/05/23 10:37 WBC 8.6 Hgb 13.4 Hct 41.2 Plt Count 312 Sodium 141 Potassium 4.0 Creatinine 0.71 Estimated GFR > 60 Fasting Glucose 112 H Calcium 10.5 H AST 14 ALT 8 Triglycerides 111 Cholesterol 178 LDL Cholesterol, Calc 99 HDL Cholesterol 57 25-OH Vitamin D Total 46.3 TSH 0.59 Assessment and Plan Assessment & Plan (1) Benign essential hypertension: Code(s): I10 - Essential (primary) hypertension Plan: Reinforced low-sodium diet -? goal is systolic BP of at least 140 mm or less Continue Lisinopril 40 mg QD and Amlodipine 10 mg QD Patient is reminded to continue monitoring her blood pressure regularly (2) Pure hypercholesterolemia: Code(s): E78.00 - Pure hypercholesterolemia, unspecified Plan: Results of her labs done a couple of months ago reviewed and discussed with patient Reinforced low cholesterol diet Continue Simvastatin 20 mg QD Will recheck her labs and fasting lipids in 4 months for follow-up (3) Impaired fasting glucose: Code(s): R73.01 - Impaired fasting glucose Plan: HgbA1c remains normal at 5.3% when checked a few months ago Reinforced low calorie diet /exercise as tolerated (4) Vitamin D deficiency: Code(s): E55.9 - Vitamin D deficiency, unspecified Plan: Continue Vitamin D3 1000 units QD (5) GERD without esophagitis: Code(s): K21.9 - Gastro-esophageal reflux disease without esophagitis Plan: Dietary restrictions reinforced Continue Famotidine 20 mg BID as needed (6) Constipation: Code(s): K59.00 - Constipation, unspecified Qualifiers: Constipation type: unspecified constipation type Qualified Code(s): K59.00 - Constipation, unspecified Plan: Encouraged again on increased oral fluids and dietary fiber Continue Senna 8.6 mg 1-2 tablets once a day as needed and advised AGAIN that she should start taking Miralax 17 gm QD Patient states that she drinks prune juice first when she starts getting constipated and this helps keep her symptoms controlled although she seems to be having trouble with this again lately Reports that she had diarrhea all day yesterday and appears to have lost a significant amount of weight since her last visit - unclear when she actually lost most of her weight but because of her ongoing issues with her bowels, will refer her back to GI for further evaluation and management States that she has not had a repeat colonoscopy done since 2008 - has been seeing Dr. Haddad and she is now scheduled for a sigmoidoscopy/colonoscopy in April 2024 (7) Allergic rhinitis: Code(s): J30.9 - Allergic rhinitis, unspecified Qualifiers: Allergic rhinitis trigger: unspecified Allergic rhinitis seasonality: unspecified Qualified Code(s): J30.9 - Allergic rhinitis, unspecified Plan: Continue Fluticasone 50 mcg nasal spray 1 spray into each nostril once a day (8) Venous insufficiency of both lower extremities: Code(s): I87.2 - Venous insufficiency (chronic) (peripheral) Plan: Encouraged again to continue elevating her legs and feet as often as she can to help minimize her pedal edema Patient also wears compression stockings, which she states have helped a lot (9) Hematuria: Code(s): R31.9 - Hematuria, unspecified Qualifiers: Hematuria type: asymptomatic microscopic Qualified Code(s): R31.21 - Asymptomatic microscopic hematuria Plan: States that she has NO acute urinary symptoms She has declined offer to have her at least get a renal US for further evaluation previously Will continue to monitor this for now; will check urine cytology again in 3 mo nt for further evaluation (10) History of breast cancer: Code(s): Z85.3 - Personal history of malignant neoplasm of breast Plan: 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 Ultrasound-guided core biopsy d one on 10/04/2010 revealed (+) ductal carcinoma in situ, ER/ID positive She subsequently underwent left breast lumpectomy and left axillary sentinel node biopsy in October 2010 - pathology revealed DCIS without evidence of invasive tumor She received adjuvant radiotherapy and was on Tamoxifen from October 2010 to October 2013 She was diagnosed then with stage I right breast carcinoma in September 2013 - also noted on routine mammogram She underwent lumpectomy on 10/01/2014 which revealed a 0.7 cm invasive ductal carcinoma grade 1 with no lymphovascular invasion - stage was [id number]. She then underwent radiation therapy and was switched from Tamoxifen therapy to Letrozole beginning on 10/25/2013 and completed 5 years of letrozole in October 2019 She continues to follow up with oncology regularly for surveillance and goes for her yearly mammogram as scheduled (11) Anxiety: Code(s): F41.9 - Anxiety disorder, unspecified Plan: She continues to exhibit significant anxiety and worries incessantly over everything and anything Continue Lorazepam 0.5 mg 1 tablet 2 to 3 times a day as needed Have offered again to start her on something to help control her anxiety better - states that she does not want to have to take more medicines if she can avoid it but after some convincing, she now agrees to try Sertraline Rx for Sertraline 25 mg Q AM was sent in at her last visit but she has YET TO START TAKING IT - is again reminded that she has to take this daily for it to be effective Follow-up with her counselor /therapist as scheduled (12) Depression: Code(s): F32.9 - Major depressive disorder, single episode, unspecified Qualifiers: Depression Type: major depressive disorder Major depression recurrence: recurrent Active/Remission status: currently active Major depression episode severity: unspecified Qualified Code(s): F33.9 - Major depressive disorder, recurrent, unspecified Plan: States that she has been doing well with this lately and continues to follow-up with her counselor / therapist regularly Has been prescribed Escitalopram in the past but patient declined the Rx and stated that she will call if she decides she wants to start on additional medications for her depression and anxiety She agreed to try Sertraline last month and Rx was sent but she has NOT yet started taking it (13) Overweight (BMI 25.0-29.9): Code(s): E66.3 - Overweight Plan: Reinforced diet/exercise as tolerated/lose weight (14) Unsteady gait: Code(s): R26.81 - Unsteadiness on feet Plan: Per request, will refer her again to physical therapy for gait training and st rengthening Plan Follow up in 4 months Orders: Orders PT Evaluation and Treatment Today R26.81 - Unsteadiness on feet Lipid Panel 4 Months E78.00 - Pure hypercholesterolemia, unspecified TSH reflex Free T4 4 Months E78.00 - Pure hypercholesterolemia, unspecified UA CC w/rflx Micro + Cult 4 Months R30.0 - Dysuria Vitamin D 25-OH Total 4 Months E55.9 - Vitamin D deficiency, unspecified Complete Blood Count Auto Diff 4 Months D64.9 - Anemia, unspecified Comprehensive [place]. Panel Fast 4 Months E78.00 - Pure hypercholesterolemia, unspecified Medications: Refilled simethicone (Gas Relief (simethicone)) take as directed for colonoscopy 125 mg PO ONCE PRN 4 caps 0RF abdominal distention lorazepam 0.5 mg PO TID 30 days PRN 90 tabs 1RF anxiety tramadol 50 mg PO TID PRN 12 tabs 0RF severe pain (scale score 7-10) simvastatin 20 mg PO BEDTIME 90 days 90 tabs 1RF E78.00 - Pure hypercholeste rolemia, unspecified cholecalciferol (vitamin D3) 25 mcg PO DAILY 90 days 90 caps 3RF Coding Level of Care Code Est Pt Level 4 (57139) Diagnoses Benign essential hypertension I10 Pure hypercholesterolemia E78.00 Impaired fasting glucose R73.01 Vitamin D deficiency E55.9 GERD without esophagitis K21.9 Constipation, unspecified constipation type K59.00 Constipation type: unspecified constipation type Allergic rhinitis, unspecified seasonality, unspecified trigger J30.9 Allergic rhinitis trigger: unspecified Allergic rhinitis seasonality: unspecified Venous insufficiency of both lower extremities I87.2 Asymptomatic microscopic hematuria R31.21 Hematuria type: asymptomatic microscopic History of breast cancer Z85.3 Anxiety F41.9 Episode of recurrent major depressive disorder, unspecified depression episode severity F33.9 Depression Type: major depressive disorder Major depression recurrence: recurrent Active/Remission status: currently active Major depression episode severity: unspecified Overweight (BMI 25.0-29.9) E66.3 Unsteady gait R26.81
[2024-02-05 13:07] VITALS: BP 132/66; PULSE 80; O2SAT 98; BMI 26.4
== END 2024-02-05 14:11 | disposition home or self-care (01) ==
PROVIDERS: PCP Internal Medicine; Visit Provider Internal Medicine
DX: I10 Essential (primary) hypertension (principal); F33.9 Major depressive disorder, recurrent, unspecified; E78.00 Pure hypercholesterolemia, unspecified; R73.01 Impaired fasting glucose; E55.9 Vitamin D deficiency, unspecified; K21.9 Gastro-esophageal reflux disease without esophagitis; K59.00 Constipation, unspecified; J30.9 Allergic rhinitis, unspecified; I87.2 Venous insufficiency (chronic) (peripheral); R31.21 Asymptomatic microscopic hematuria; Z85.3 Personal history of malignant neoplasm of breast; F41.9 Anxiety disorder, unspecified
CPT/HCPCS: 99214

== ENCOUNTER 2024-04-16 10:27 | Day surgery (SDC) | payer MEDICARE, SELFPAY ==
--- NOTE | 2024-04-12 14:42 | HO.ANESPROP2 ---
Documented by User: Lupe Ramírez NP 04/12/24 14:42 HPI - Anesthesia Eval Consult details Narrative: 78yo F for Sigmoidoscopy Flexible PMFSH Active Problems Active Problems: All Active Problems Frequency of micturition (Acute) Abnormal CT scan, gallbladder (Acute) Gallstones (Acute) Unintentional weight change (Acute) Cervical cancer screening (Acute) History of breast cancer (Acute) Breast cancer (Chronic) Overweight (BMI 25.0-29.9) (Acute) Abdominal pain (Acute) Hematuria (Acute) Colon cancer screening (Acute) Right lower quadrant abdominal pain (Acute) Annual physical exam (Acute) Unsteady gait (Acute) Obesity (BMI 30-39.9) (Acute) Depression (Acute) Anxiety (Acute) Venous insufficiency of both lower extremities (Acute) Nocturnal leg cramps (Acute) Allergic rhinitis (Acute) Constipation (Acute) GERD without esophagitis (Acute) Vitamin D deficiency (Acute) Impaired fasting glucose (Acute) Pure hypercholesterolemia (Acute) Benign essential hypertension (Acute) Past Medical History Medical History Breast cancer Overweight (BMI 25.0-29.9) Depression Anxiety Venous insufficiency of both lower extremities Nocturnal leg cramps Allergic rhinitis Constipation GERD without esophagitis Vitamin D deficiency Impaired fasting glucose Pure hypercholesterolemia Benign essential hypertension Family History Family History Father Hypertension Stroke Mother Stroke Hypertension Family history of problems with anesthesia: No Surgical History Surgical History History of esophagogastroduodenoscopy (EGD) H/O lumpectomy History of lumpectomy of right breast History of colonoscopy History of Problems with Anesthesia: No Social History Social History Household Members: None Housing: Apartment Housing Other:: Independent living Alcohol intake: current Alcohol intake frequency: holidays/special occasions only Alcohol type: wine Patient Tobacco Use Status: Never used Tobacco e-Cigarette/Vaping Use: Never Used Second Hand Smoke Exposure: Yes Use of substances other than those prescribed or required for medical reasons: No Are you DNR?: No Advance Directives: No Advance Directives Information Provided: Yes service: No Current occupational status: retired Cognitive needs: Yes (cane) Hearing needs: Yes Vision needs: Yes Meds Allergies Allergy/AdvReac Type Severity Reaction Status Date / Time Penicillins Allergy Mild HIVES Verified 02/05/24 13:31 codeine Allergy Unknown nausea Verified 02/05/24 13:31 Assessment and Plan Assessment Anesthesia Assessment: Chart Reviewed Final Anesthetic Review Family History of Problems with Anesthesia: No History of Problems with Anesthesia: No Documented by User: Anayeli Guillory MD 04/16/24 12:23 [facility] Past Medical History Medical History Breast cancer Overweight (BMI 25.0-29.9) Depression Anxiety Venous insufficiency of both lower extremities Nocturnal leg cramps Allergic rhinitis Constipation GERD without esophagitis Vitamin D deficiency Impaired fasting glucose Pure hypercholesterolemia Benign essential hypertension Family History Family History Father Hypertension Stroke Mother Stroke Hypertension Surgical History Surgical History History of esophagogastroduodenoscopy (EGD) H/O lumpectomy History of lumpectomy of right breast History of colonoscopy Social History Social History Household Members: None Housing: Apartment Housing Other:: Independent living Alcohol intake: current Alcohol intake frequency: holidays/special occasions only Alcohol type: wine Patient Tobacco Use Status: Never used Tobacco e-Cigarette/Vaping Use: Never Used Second Hand Smoke Exposure: Yes Use of substances other than those prescribed or required for medical reasons: No Are you DNR?: No Advance Directives: No Advance Directives Information Provided: Yes service: No Current occupational status: retired Cognitive needs: Yes (cane) Hearing needs: Yes Vision needs: Yes Meds Allergies Allergy/AdvReac Type Severity Reaction Status Date / Time Penicillins Allergy Mild HIVES Verified 02/05/24 13:31 codeine Allergy Unknown nausea Verified 02/05/24 13:31 Exam Airway Mallampati Class: II TM Dist: >3cm Neck ROM: Limited Denture: Upper Loose/Missing/Broken Teeth: Yes, Upper and Lower Heart: RRR Lungs: CTA Assessment and Plan Assessment Anesthesia Assessment: Anesthesia Plan Discussed Final Anesthetic Review NPO: Yes ASA Class: II Final Preanesthetic Review: Meds/Allgs Chart Reviewed, Consent Obtained/Reviewed and Anes Risks/Benef Reviewed Patient Risk: Low Procedure Risk: Low Anesthetic Plan Anesthetic Plan: MAC: Disposition: Standard PACU
[2024-04-16 11:18] VITALS: BMI 22.8
[2024-04-16 11:20] VITALS: BP 114/57; PULSE 83; RESP 20; TEMP 37.3; O2SAT 97
[2024-04-16] MEDS: Lactated Ringers 1,000 ML 100 ML IVCONT (11:57)
--- NOTE | 2024-04-16 12:19 | MHC.SHP ---
Pre-Procedural Eval Section A - 24 Hr Update-Section A only Date of Service: 04/16/24 Section B - Complete if H&P > 30 days Chief Complaint: Personal history of colonic polyps Details of Present Illness: Breast cancer Overweight (BMI 25.0-29.9) Depression Anxiety Venous insufficiency of both lower extremities Nocturnal leg cramps Allergic rhinitis Constipation GERD without esophagitis Vitamin D deficiency Impaired fasting glucose Pure hypercholesterolemia Benign essential hypertension Surgical History History of esophagogastroduodenoscopy (EGD) H/O lumpectomy History of lumpectomy of right breast History of colonoscopy Allergies: Allergies Allergy/AdvReac Type Severity Reaction Status Date / Time Penicillins Allergy Mild HIVES Verified 02/05/24 13:31 codeine Allergy Unknown nausea Verified 02/05/24 13:31 Review of Systems Review of Systems Comment: Ten point ROS negative Exam Exam Comment: Gen appear: No acute distress HEENT: no icterus, hard of hearing Chest: No overt resp distress Abd: soft, nontender, nondistended Psych: Stable affect, answering questions appropriately Neuro: A/Ox3 noted to move all extremities spontaneously Ext: no peripheral edema Plan Diagnosis/Plan: Unchanged I have reviewed the history and physical and performed a pertinent physical examination on my patient. No changes have occurred unless specified. Time Spent With Patient Time: Total time managing care of this patient today ____ minutes.
--- NOTE | 2024-04-16 12:44 | P.OPN-COLO_ITS ---
Colonoscopy Operative Note Operative Note Date of Service: 04/16/24 Narrative: Procedure: Flexible sigmoidoscopy Indication: Personal history of polyps Endoscopist: Dixie Alvares MD Anesthesia Provider: Dr Vesta Guillory Anesthesia type: MAC Instrument: Olympus [id number]-[id number] Consent: Indication, risks vs benefits, and alternatives were discussed with the patient who gave written informed consent to proceed. EKG, pulse, pulse oximetry and blood pressure were monitored throughout the procedure. Please see anesthesia flowsheet. Procedure: The patient was brought to the procedure room and placed in the left lateral decubitus position. IV medications were administered by the anesthesia provider in attendance. A digital rectal exam was performed which was abnormal due to finding of hemorrhoids. A distal attachment cap was affixed to the tip of the colonoscope which was then inserted through the anus and advanced through the colon to the distal descending colon. Mucosa was carefully examined under high definition white light as the instrument was slowly withdrawn in a retrograde panoramic fashion. Retroflexion was performed in rectum. The procedure was not difficult. There were no immediate obvious complications. The quality of the prep was fair. Limitations: No limitations. Findings: Mucosa: Small amount of solid stool which was flushed away. Previous polypectomy scar noted just inside the anorectal junction above the dentate line. No residual polyp was noted under white light or NBI. Protruding lesions: * Medium internal hemorrhoids without stigmata of recent bleeding. Excavated lesions: * Severe diverticulosis of left sided colon. Impression: 1. Previous polypectomy scar, no residual polyp. 2. Diverticulosis 3. External and internal hemorrhoids Recommendations: - Repeat colonoscopy for CRC screening not recommended due to age.
[2024-04-16 12:47] VITALS: BP 97/51; PULSE 73; RESP 18; TEMP 36.4; O2SAT 97
[2024-04-16 13:02] VITALS: BP 112/72; PULSE 78; RESP 18; TEMP 36.7; O2SAT 97
== END 2024-04-16 14:07 | disposition home or self-care (01) ==
PROVIDERS: PCP Internal Medicine; Visit Provider Internal Medicine
PROC: 0DJD8ZZ Inspection of Lower Intestinal Tract, Via Natural or Artificial Opening Endoscopic (ICD-10-PCS; CPT 45330; principal; 2024-04-16 11:30)
DX: Z09 Encounter for follow-up examination after completed treatment for conditions other than malignant neoplasm (principal); K57.30 Diverticulosis of large intestine without perforation or abscess without bleeding; K64.8 Other hemorrhoids; K64.4 Residual hemorrhoidal skin tags; Z86.010 Personal history of colon polyps; I10 Essential (primary) hypertension; Z79.899 Other long term (current) drug therapy; Z88.0 Allergy status to penicillin; Z88.5 Allergy status to narcotic agent
CPT/HCPCS: 45330; J2704

== ENCOUNTER → 2024-04-16 10:27 | Outpatient (BNV) | payer MEDICARE, SELFPAY | PROVIDERS: PCP Internal Medicine; Visit Provider Internal Medicine | DX: Z12.11 Encounter for screening for malignant neoplasm of colon (principal); Z86.010 Personal history of colon polyps; K64.0 First degree hemorrhoids; K57.30 Diverticulosis of large intestine without perforation or abscess without bleeding | CPT/HCPCS: 45330 ==

== ENCOUNTER 2024-06-04 10:14 | Outpatient (REF) | payer MEDICARE, SELFPAY ==
[2024-06-04 10:31] LABS: MANUAL DIFF FLAG NO
[2024-06-04 11:33] LABS: Basophils Absolute Auto 0.1 X10*3/uL (0.0-0.2); Basophils Percent Auto 0.8 % (0-2); Eosinophils Percent Auto 0.3 % (0-4); Hematocrit 40.1 % (37.0-47.0); Hemoglobin 13.3 g/dl (12.0-16.0); Imm Gran Abs Auto 0.03 X10*3/uL (0.00-0.03); Imm Gran Pct Auto 0.4 % (0.0-0.4); Lymphocytes Absolute Auto 1.3 X10*3/uL (1.2-4.9); Lymphocytes Percent Auto 17.5 % (20-40); Mean Corpuscular HGB Conc 33.2 g/dl (31.0-35.0); Mean Corpuscular Volume 96.6 fL (80.0-98.0); Mean Platelet Volume 9.4 fL (9.4-12.3); Monocytes Absolute Auto 0.5 X10*3/uL (0.1-1.2); Monocytes Percent Auto 6.5 % (2-11); Neutrophils Absolute Auto 5.6 x10*3/uL (2.0-8.3); Neutrophils Percent Auto 74.5 % (45-73); Platelet Count 334 X10*3/uL (160-400); Red Blood Count 4.15 X10*6/uL (4.20-5.50); Red Cell Distribution Width 11.9 % (11.0-16.0); White Blood Count 7.6 X10*3/uL (4.8-10.8)
[2024-06-04 12:18] LABS: Alanine Aminotransferase 9 U/L (0-31); Albumin Level 4.4 g/dL (3.5-5.0); Alkaline Phosphatase 92 U/L (39-117); Anion Gap 16 (12-20); Aspartate Amino Transferase 14 U/L (5-31); Bilirubin Total 0.6 mg/dL (0.0-1.0); Blood Urea Nitrogen 10 mg/dL (9-16); Calcium 10.8 mg/dL (8.4-10.2); Carbon Dioxide 25 mmol/L (22-29); Chloride 104 mmol/L (96-108); Cholesterol 164 mg/dL (<200); Estimated Glomerular Filt Rate > 60; Glucose Fasting 111 mg/dL (60-99); HDL Cholesterol 63 mg/dL (>40); LDL Cholesterol Calculated 82 mg/dL (<100); Potassium 3.7 mmol/L (3.3-5.1); Sodium 141 mmol/L (135-145); Total Protein 7.7 g/dL (6.5-8.0); Triglycerides 98 mg/dL (<150)
[2024-06-04 12:36] LABS: TSH reflex Free T4 0.91 uIU/mL (0.32-4.0); Vitamin D 25-OH Total 56.4 ng/mL (>30)
== END 2024-06-04 10:15 | disposition home or self-care (01) ==
LOC: HO.LAB 10:14
PROVIDERS: PCP Internal Medicine; Visit Provider Internal Medicine
DX: E78.00 Pure hypercholesterolemia, unspecified (principal); E55.9 Vitamin D deficiency, unspecified; D64.9 Anemia, unspecified
CPT/HCPCS: 36415; 80053; 80061; 82306; 84443; 85025

== ENCOUNTER 2024-06-06 10:19 | Outpatient (AMB) | payer MEDICARE, SELFPAY ==
--- NOTE | 2024-06-06 10:29 | A.OFFVIS_ITS ---
Vital Signs 06/06/24 10:30 Height 5 ft 4 in Weight 136 lb BMI 23.3 BP 127/61 Blood Pressure Location Lt brachial Position Sitting Pulse 88 Intake Visit Reasons: 6 month follow up Intake Note: Patient 6 month follow up for abdominal pain and Sigmoidoscopy results. Patient cc: abdominal bloating on and off, heartburn with burning sensation come and go, and sometimes constipation. Business Objects Architect Required: No Accompanied by: Daughter Allergies Penicillins Allergy (Mild, Verified 06/14/24 10:54) HIVES codeine Allergy (Unknown, Verified 06/14/24 10:54) nausea Medication List - Last Reconciled 06/06/24 by Adelia Haddad MD amlodipine 10 mg PO DAILY 90 days cholecalciferol (vitamin D3) 25 mcg PO DAILY 90 days famotidine 20 mg PO BID 90 days [LIGHTWEIGHT ROLLATOR As directed] lisinopril 40 mg PO DAILY 90 days lorazepam 0.5 mg PO TID PRN 30 days polyethylene glycol 3350 (Miralax) 17 grams PO DAILY psyllium husk (Metamucil) 0.4 grams PO DAILY 90 days sertraline 25 mg PO DAILY 90 days simethicone (Gas Relief (simethicone)) 125 mg PO ONCE PRN simvastatin 20 mg PO BEDTIME 90 days tramadol 50 mg PO TID PRN HPI HPI 6 month follow up: Details: GI clinic visit for this 78 YF for follow-up of right lower quadrant pain, change in bowel habits and unintentional weight loss LABS IN [facility] : Reviewed IMAGING STUDIES: 01/02/24 ABD US SHOWED: LIVER: Normal. The liver is normal in size. The liver contour is normal. Parenchymal echogenicity is normal. No focal hepatic lesion. There is no intrahepatic biliary duct dilatation seen. GALLBLADDER: There are 2 large stones within the gallbladder including 5.5 x 2.7 x 2.8 cm and 2.3 x 1.6 x 1.7 cm. Tiny stones are seen withinthe fundus of the gallbladder. The gallbladder is physiologically distended without evidence of sludge, polyps, wall thickening or pericholecystic fluid. COMMON BILE DUCT: Normal in caliber measuring 0.6 cm in diameter. 11/14/[address] scan showed: 1. Cholelithiasis and possibly tumefactive sludge or small masses,stable since previous study without evidence of cholecystitis,correlate with right upper quadrant ultrasound. 2. Constipation and diverticulosis. 3. Small hiatal hernia 4. Fibroid uterus, no interval change. 5. Degenerative changes in both hip joints and lumbar spine. 6. Urinary bladder wall thickening, correlate with urine tests. ENDOSCOPIC STUDIES: 04/16/24 FLEX SIGMOIDOSCOPY WAS PERFORMED BY DR ERVIN: Impression: 1. Previous polypectomy scar, no residual polyp. 2. Diverticulosis 3. External and internal hemorrhoids Recommendations: - Repeat colonoscopy for CRC screening not recommended due to age. 10/31/23 EGD AND COLON SHOWED: Endoscopy Findings: ESOPHAGUS: Small hiatal hernia 36 to 38 cms. Minimal focal esophagitis at GE junction. STOMACH: Mild gastritis and benign-appearing gastric polyps DUODENUM: Normal - biopsied to check for celiac sprue Colonoscopy Findings: One medium sized polyps removed Moderate to severe diverticulosis seen in the left colon Moderate hemorrhoids on retroflexed exam. No clear etiology found for weight loss and abdominal pain Of note - Abd CT scan in 01/2023 showed gallstones. Plan: Repeat flexible sigmoidoscopy in 4-6 months to check polypectomy site in the recum if rectal polyps is adenomatous and 10 years if polyps are hyperplastic. Above findings were reviewed with the patient and Hiatal hernia, colon polyps and diverticulosis handouts were given in the discharge area Pt was advised to proceed with Abd CT scan as scheduled on 11/14/23 At [place]'s request, her daughter Maryjane ([phone]) was called and EGD and colonoscopy results were reviewed with her. Daughter attributes her weight loss to a inadequate PO intake. Pt appeared very anxious and tearful regarding her wt loss despite multiple re- assurance TODAY'S VISIT: Patient 6 month follow up for abdominal pain and Sigmoidoscopy results. Patient cc: abdominal bloating on and off, heartburn with burning sensation come and go, and sometimes constipation. Pt complains of occasional heartburn and constipation. Notes an upset stomach after she eats - takes TUMS and it goes away Complains of intermittent constipation alternating with diarrhea x past several yrs Notes intermittent pain in the right groin area (? since after her colonoscopy) and takes acetaminophen Patient cc: abdominal pain on and off, acid reflex come and go with burping, and between diarrhea and constipation on and off. Patient cc: abdominal pain with bloating on and off, burping, between diarrhea and constipation, and some dysphagia with meats. EGD and colon and Abd CT results were reviewed with the patient. Complains of RLQ pain and increased frequency of micturation without burning. Pt complains of constipation alternating with diarrhea. Constipation has improved since she had her colonoscopy. Takes generic version of Miralax every 2nd or 3rd day. Patient denies symptoms of heartburn, dysphagia, nausea, vomiting, change in appetite or weight. Denies recent change in bowel habits, constipation, diarrhea, black stools or rectal bleeding. Patient denies major cardiac or pulmonary problems, loud snoring or sleep apnea Denies problems with anesthesia in the past. Denies being on chronic anticoagulation. Patient denies known family history of colon polyps, colon cancer or other GI malignancies. PAST GI HISTORY BY REVIEW OF MEDICAL RECORDS: Ddx for RLQ pain with change in bowel habits and unintentional weight loss include malignancy, diverticular disease, - IBS-C less likely given weight loss. Will arrange for urgent endoscopic work up and imaging. Plan: - Labs ordered as below - EGD/colo to be booked in a few weeks. Split PEG prep was reviewed with the pt and handout provided as well. - CT Abd/pel with IV contrast ordered - Pt was advised to increase hydration and take miralax as needed for constipation. - Of note- mild hypercalcemia noted and will check ionized calcium PFSH Medical History Hx of flexible sigmoidoscopy Breast cancer Overweight (BMI 25.0-29.9) Depression Anxiety Venous insufficiency of both lower extremities Nocturnal leg cramps Allergic rhinitis Constipation GERD without esophagitis Vitamin D deficiency Impaired fasting glucose Pure hypercholesterolemia Benign essential hypertension Surgical History History of esophagogastroduodenoscopy (EGD) H/O lumpectomy History of lumpectomy of right breast History of colonoscopy Family History Father Hypertension Stroke Mother Stroke Hypertension Social History Household Members: None Housing: Apartment Housing Other:: Independent living Alcohol intake: current Alcohol intake frequency: holidays/special occasions only Alcohol type: wine Patient Tobacco Use Status: Never used Tobacco e-Cigarette/Vaping Use: Never Used Second Hand Smoke Exposure: Yes service: No Current occupational status: retired Cognitive needs: Yes (cane) Hearing needs: Yes Vision needs: Yes Review of Systems Const All systems reviewed & are unremarkable except as noted in HPI and below Physical Exam Vital Signs: Last Vital Signs Pulse 88 06/06/24 10:30 BP 127/61 06/06/24 10:30 BMI result Body Mass Index 23.3 Const General: healthy appearing and no acute distress Nutritional Appearance: average body habitus Orientation/consciousness: patient oriented x3 Limitations: ambulation with walker HEENT Head: Yes normal to inspection Ears: hearing grossly normal bilaterally Eyes Sclerae: sclerae normal Pupils: Equal, round and reactive pupils present Neck Neck: Yes normal visual inspection Chest Chest palpation & inspection: normal inspection of the chest Resp Effort & Inspection: normal respiratory effort Auscultation: clear to auscultation bilaterally Cardio Palpation: normal PMI Rate: regular rate Rhythm: regular rhythm Heart sounds: S1 normal heart sound present, S2 normal heart sound present and no murmurs GI Palpation (GI): Soft to palpation, nontender and No hepatosplenomegaly present Auscultation: normal bowel sounds Rectal Exam - Female: deferred Skin General skin exam: no rashes or lesions noted Neuro General: patient oriented x3, gait normal and moves all extremities Cranial nerves: Yes Equal, round and reactive pupils present Psych Appearance: grossly normal Mental Status: mental status grossly normal Assessment & Plan Assessment & Plan (1) Vitamin D deficiency: Code(s): E55.9 - Vitamin D deficiency, unspecified Category: Medical (2) GERD without esophagitis: Code(s): K21.9 - Gastro-esophageal reflux disease without esophagitis Category: Medical (3) Constipation: Code(s): K59.00 - Constipation, unspecified Category: Medical Qualifiers: Constipation type: unspecified constipation type Qualified Code(s): K59.00 - Constipation, unspecified (4) Right lower quadrant abdominal pain: Code(s): R10.31 - Right lower quadrant pain Category: Medical (5) Colon cancer screening: Code(s): Z12.11 - Encounter for screening for malignant neoplasm of colon Category: Medical (6) Gallstones: Code(s): K80.20 - Calculus of gallbladder without cholecystitis without obstruction Category: Medical (7) Abnormal CT scan, gallbladder: Code(s): R93.2 - Abnormal findings on diagnostic imaging of liver and biliary tract Category: Medical Plan 78 YF with RLQ pain with change in bowel habits and unintentional weight loss 10/31/23 EGD and colonoscopy was performed and findings as noted above 11/14/[address] scan showed Cholelithiasis and possibly tumefactive sludge or small masses, Constipation and diverticulosis, Fibroid uterus, no interval change and Urinary bladder wall thickening, correlate with urine tests. Plan: 1. Abd US to FU on abnormal gallbladder noted on CT scan 2. Urine analysis and urine cytology - as ordered by Dr Bucio. She may need referral to Urology. 3. Flexible sigmoidoscopy with colon prep to FU on a 2 to 2.5 cms rectal polyp. At [place]'s request, her daughter Maryjane ([phone]) was called and EGD, colonoscopy and abdominal CT results and fu plans were reviewed with her. Daughter attributes her weight loss to a inadequate PO intake. Pt referred to Surgery for evaluation for Lap Sarah - large gallstones associated with increased risk of GB cancer FU in 6 months Orders: Referrals General Surgery Referral K80.20 - Calculus of gallbladder without cholecystitis without obstruction Coding Level of Care Code Est Pt Level 4 (86809) Diagnoses Vitamin D deficiency E55.9 GERD without esophagitis K21.9 Constipation, unspecified constipation type K59.00 Constipation type: unspecified constipation type Right lower quadrant abdominal pain R10.31 Colon cancer screening Z12.[address] scan, gallbladder R93.2 Time Spent (min) 22
[2024-06-06 10:30] VITALS: BP 127/61; PULSE 88; BMI 23.3
== END 2024-06-06 11:14 | disposition home or self-care (01) ==
PROVIDERS: PCP Internal Medicine; Visit Provider Internal Medicine Gastroenterology
DX: E55.9 Vitamin D deficiency, unspecified (principal); K21.9 Gastro-esophageal reflux disease without esophagitis; K59.00 Constipation, unspecified; R10.31 Right lower quadrant pain; Z12.11 Encounter for screening for malignant neoplasm of colon; K80.20 Calculus of gallbladder without cholecystitis without obstruction; R93.2 Abnormal findings on diagnostic imaging of liver and biliary tract
CPT/HCPCS: 99214

== ENCOUNTER → 2024-06-06 10:19 | Outpatient (BNVA) | payer MEDICARE, SELFPAY | PROVIDERS: PCP Internal Medicine; Visit Provider Internal Medicine Gastroenterology | DX: K57.90 Diverticulosis of intestine, part unspecified, without perforation or abscess without bleeding (principal); K21.9 Gastro-esophageal reflux disease without esophagitis; K59.00 Constipation, unspecified; K80.20 Calculus of gallbladder without cholecystitis without obstruction; R19.7 Diarrhea, unspecified; R47.02 Dysphasia; R93.2 Abnormal findings on diagnostic imaging of liver and biliary tract; R10.31 Right lower quadrant pain; E55.9 Vitamin D deficiency, unspecified | CPT/HCPCS: 99212 ==

== ENCOUNTER 2024-06-10 10:31 | Outpatient (AMB) | payer MEDICARE, SELFPAY ==
[2024-06-10 10:32] VITALS: BP 126/58; PULSE 78; O2SAT 99; BMI 23.7
--- NOTE | 2024-06-10 10:32 | MHC.PC.OV ---
Vital Signs 06/10/24 10:32 Height 5 ft 4 in Weight 138 lb BMI 23.7 BP 126/58 L Blood Pressure Location Lt brachial Position Sitting Pulse 78 Pulse Source Pulse Oximeter Pulse Oximetry (%) 99 Oxygen Delivery Method Room Air Intake Visit Reasons: anxiety, hyperlipidemia, HTN, constipation Intake Note: Patient is here to follow up Allergies Penicillins Allergy (Mild, Verified 06/10/24 11:38) HIVES codeine Allergy (Unknown, Verified 06/10/24 11:38) nausea Medication List - Last Reconciled 06/10/24 by Clifford Bucio MD amlodipine 10 mg PO DAILY 90 days cholecalciferol (vitamin D3) 25 mcg PO DAILY 90 days famotidine 20 mg PO BID 90 days [LIGHTWEIGHT ROLLATOR As directed] lisinopril 40 mg PO DAILY 90 days lorazepam 0.5 mg PO TID PRN 30 days polyethylene glycol 3350 (Miralax) 17 grams PO DAILY psyllium husk (Metamucil) 0.4 grams PO DAILY 90 days sertraline 25 mg PO DAILY 90 days simethicone (Gas Relief (simethicone)) 125 mg PO ONCE PRN simvastatin 20 mg PO BEDTIME 90 days tramadol 50 mg PO TID PRN Tobacco use date assessed: 02/05/24 Fall risk assessment: No Falls in past year Last assessed Fall Risk: 06/10/24 Dental Screening Dental Screen Date: 02/05/24 HPI anxiety, hyperlipidemia, HTN, constipation HPI Details Patient comes in today for her follow up visit States that she feels okay but continues to experience increased anxiety (chronic) She was started on Sertraline 25 mg Q AM at her last visit but she stopped taking that after a couple of days as she did not feel that they were helping States that she is also currently getting physical therapy for her leg pains and weakness and feels that PT is helping her a lot She denies any headaches or dizziness Denies any chest pains, no SOB No nausea/vomiting, still has on and off right-sided abdominal pain and occasional diarrhea/loose stools but otherwise, states that she has no significant change in bowel habits She had her colonoscopy done last month - (+) previous polypectomy scar but NO polyps, (+) diverticulosis and hemorrhoids She also had (+) gallstones seen on recent imaging studies and she has been referred to surgery for further evaluation - appt is still pending She had her follow up labs done last week - to discuss her results [facility] Medical History Hx of flexible sigmoidoscopy Breast cancer Overweight (BMI 25.0-29.9) Depression Anxiety Venous insufficiency of both lower extremities Nocturnal leg cramps Allergic rhinitis Constipation GERD without esophagitis Vitamin D deficiency Impaired fasting glucose Pure hypercholesterolemia Benign essential hypertension Surgical History History of esophagogastroduodenoscopy (EGD) H/O lumpectomy History of lumpectomy of right breast History of colonoscopy Family History Father Hypertension Stroke Mother Stroke Hypertension Social History Household Members: None Housing: Apartment Housing Other:: Independent living Alcohol intake: current Alcohol intake frequency: holidays/special occasions only Alcohol type: wine Patient Tobacco Use Status: Never used Tobacco e-Cigarette/Vaping Use: Never Used Second Hand Smoke Exposure: Yes service: No Current occupational status: retired Cognitive needs: Yes (cane) Hearing needs: Yes Vision needs: Yes Questionnaire Thrive Questionnaire Date Thrive assessed: 02/05/24 AUDIT C Alcohol Use Questionnaire (AUDIT-C) 1. How often do you have a drink containing alcohol?: Monthly or less 2. How many drinks containing alcohol do you have on a typical day when you are drinking?: 1 or 2 3. How often do you have six or more drinks on one occasion?: Never Total Score: 1 Score Reviewed/Action Taken: Yes ANURADHA-7 AMB Questionnaire ANURADHA-7 Date ANURADHA - 7 assessed: 02/05/24 Source: Developed by Drs. Woodrow Ortega, Kaitlyn Winters, Ihsan Novoa and colleagues, with an educational kirby from [employer]. Review of Systems Const Denies chills, Denies fatigue, Denies fever(s) and Denies headache(s) ENT Denies dysphagia, Denies dizziness, Denies otalgia, Denies headache(s), Denies neck pain, Denies odynophagia and Denies sore throat Card Denies chest pain, Denies palpitations and Denies dyspnea Resp Denies cough, Denies dyspnea and Denies wheezing GI Reports abdominal pain (occasional cramping pain over the right lower abdomen), Reports constipation (on and off), Denies dysphagia, Denies heartburn, Reports diarrhea (had bouts of diarrhea yesterday - see HPI), Denies nausea, Denies odynophagia and Denies vomiting Denies nocturia, Denies dysuria, Reports urinary incontinence and Denies urinary urgency Musc Denies back pain, Denies arthralgias, Reports muscle weakness (over both legs at times) and Denies neck pain Skin/Breast Denies rash Neuro Denies dizziness and Denies headache(s) Psych Reports anxiety (increased; chronic - worries incessantly over everything) Endo Denies fatigue and Denies palpitations Aller/Immun Denies wheezing Physical exam (Primary Care) Vital Signs: Last Vital Signs Pulse 78 06/10/24 10:32 BP 126/58 L 06/10/24 10:32 Pulse Ox 99 06/10/24 10:32 Oxygen Delivery Method Room Air 06/10/24 10:32 BMI result Body Mass Index 23.7 Tobacco/Smoking Status: Tobacco use Status Tobacco use date assessed 02/05/24 06/10/24 10:32 Patient Tobacco Use Status Never used Tobacco 06/10/24 10:32 e-Cigarette/Vaping Use Never Used 06/10/24 10:32 Thrive Assessment: Date of Thrive Assessment Date Thrive assessed 02/05/24 06/10/24 10:32 Const General: no acute distress and alert HENMT Ears: TM's normal bilaterally and EAC's normal Throat: Yes posterior oropharynx normal and Yes tonsils normal Neck Neck: Yes no lymphadenopathy and Yes supple Thyroid: Thyroid normal Lymphatic: no lymphadenopathy noted Resp Auscultation: clear to auscultation bilaterally, no rales and no wheezes Cardio Rate: regular rate Rhythm: regular rhythm Heart sounds: no murmurs GI Palpation (GI): Tenderness to palpation present (GI) (diffuse discomfort and mild tenderness on palpation) in the RUQ, no guarding, not rigid and No Rebound tenderness present General: Yes no CVA tenderness Back/Spine/Pelvis Back: no CVA tenderness Skin Rashes: no rashes Extrem General: Yes no clubbing, cyanosis or edema Psych Affect: Anxious affect present Results Reviewed Results Reviewed: Laboratory Tests 06/04/24 10:30 WBC 7.6 Hgb 13.3 Hct 40.1 Plt Count 334 Sodium 141 Potassium 3.7 Creatinine 0.64 Estimated GFR > 60 Fasting Glucose 111 H Calcium 10.8 H AST 14 ALT 9 Triglycerides 98 Cholesterol 164 LDL Cholesterol, Calc 82 HDL Cholesterol 63 25-OH Vitamin D Total 56.4 TSH 0.91 Assessment and Plan Assessment & Plan (1) Benign essential hypertension: Code(s): I10 - Essential (primary) hypertension Plan: Reinforced low-sodium diet -? goal is systolic BP of at least 140 mm or less Continue Lisinopril 40 mg QD and Amlodipine 10 mg QD Patient is reminded to continue monitoring her blood pressure regularly (2) Pure hypercholesterolemia: Code(s): E78.00 - Pure hypercholesterolemia, unspecified Plan: Results of her labs done last week reviewed and discussed with patient Reinforced low cholesterol diet Continue Simvastatin 20 mg QD Will recheck her labs and fasting lipids in 4 months for follow-up (3) Impaired fasting glucose: Code(s): R73.01 - Impaired fasting glucose Plan: HgbA1c remains normal at 5.3% when last checked a few months ago; FBS is still slightly elevated at 111 mg/dl on her recent labs Reinforced low calorie diet /exercise as tolerated (4) Vitamin D deficiency: Code(s): E55.9 - Vitamin D deficiency, unspecified Plan: Continue Vitamin D3 1000 units QD (5) GERD without esophagitis: Code(s): K21.9 - Gastro-esophageal reflux disease without esophagitis Plan: Dietary restrictions reinforced Continue Famotidine 20 mg BID as needed (6) Constipation: Code(s): K59.00 - Constipation, unspecified Qualifiers: Constipation type: unspecified constipation type Qualified Code(s): K59.00 - Constipation, unspecified Plan: Encouraged again on increased oral fluids and dietary fiber Continue Senna 8.6 mg 1-2 tablets once a day as needed and advised AGAIN that she should start taking Miralax 17 gm QD Patient states that she drinks prune juice first when she starts getting constipated and this helps keep her symptoms controlled although she seems to be having trouble with this again lately She is now seeing GI for her bowel issues and recent weight loss Had repeat colonoscopy done last month (April 2024) - colonoscopy came out normal although recent imaging studies revealed (+) gallstones (7) Cholelithiasis: Code(s): K80.20 - Calculus of gallbladder without cholecystitis without obstruction Qualifiers: Cholelithiasis location: gallbladder Cholecystitis presence: without cholecystitis Biliary obstruction: without biliary obstruction Qualified Code(s): K80.20 - Calculus of gallbladder without cholecystitis without obstruction Plan: This was seen incidentally on recent imaging studies and patient has been referred by GI to surgery for further evaluation and management - is currently still awaiting scheduling for appt (8) Allergic rhinitis: Code(s): J30.9 - Allergic rhinitis, unspecified Qualifiers: Allergic rhinitis trigger: unspecified Allergic rhinitis seasonality: unspecified Qualified Code(s): J30.9 - Allergic rhinitis, unspecified Plan: Continue Fluticasone 50 mcg nasal spray 1 spray into each nostril once a day (9) Venous insufficiency of both lower extremities: Code(s): I87.2 - Venous insufficiency (chronic) (peripheral) Plan: She is again encouraged again to continue elevating her legs and feet as often as she can to help minimize her pedal edema Patient also wears compression stockings, which she states have helped a lot (10) Hematuria: Code(s): R31.9 - Hematuria, unspecified Qualifiers: Hematuria type: asymptomatic microscopic Qualified Code(s): R31.21 - Asymptomatic microscopic hematuria Plan: States that she has NO acute urinary symptoms She has declined offer to have her at least get a renal US for further evaluation previously Will continue to monitor this for now; will check urine cytology again in 4 months for further evaluation (11) History of breast cancer: Code(s): Z85.3 - Personal history of malignant neoplasm of breast Plan: 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 Ultrasound-guided core biopsy done on 10/04/2010 revealed (+) ductal carcinoma in situ, ER/NH positive She subsequently underwent left breast lumpectomy and left axillary sentinel node biopsy in October 2010 - pathology revealed DCIS without evidence of invasive tumor She received adjuvant radiotherapy and was on Tamoxifen from October 2010 to October 2013 She was diagnosed then with stage I right breast carcinoma in September 2013 - also noted on routine mammogram She underwent lumpectomy on 10/01/2014 which revealed a 0.7 cm invasive ductal carcinoma grade 1 with no lymphovascular invasion - stage was [id number]. She then underwent radiation therapy and was switched from Tamoxifen therapy to Letrozole beginning on 10/25/2013 and completed 5 years of letrozole in October 2019 She continues to follow up with oncology regularly for surveillance and goes for her yearly mammogram as scheduled (12) Anxiety: Code(s): F41.9 - Anxiety disorder, unspecified Plan: She continues to exhibit significant anxiety and worries incessantly over everything and anything Continue Lorazepam 0.5 mg 1 tablet 2 to 3 times a day as needed Have offered again to start her on something to help control her anxiety better - states that she does not want to have to take more medicines if she can avoid it but after some convincing, she now agrees to try Sertraline Rx for Sertraline 25 mg Q AM was sent in at her last visit - states that she took it for a couple of days and stopped as she felt that it was not helping Have advised her AGAIN that she has to take this daily for it to be effective and that it takes at least 2 to 3 weeks before she can tell if the Rx is helping or not - advised that 2 days is not even enough time to tell Follow-up with her counselor /therapist as scheduled (13) Depression: Code(s): F32.9 - Major depressive disorder, single episode, unspecified Qualifiers: Depression Type: major depressive disorder Major depression recurrence: recurrent Active/Remission status: currently active Major depression episode severity: unspecified Qualified Code(s): F33.9 - Major depressive disorder, recurrent, unspecified Plan: States that she has been doing well with this lately and continues to follow-up with her counselor / therapist regularly Has been prescribed Escitalopram in the past but patient declined the Rx and stated that she will call if she decides she wants to start on additional medications for her depression and anxiety She agreed to try Sertraline at her last visit but took it only for a couple of days - have advised her to start back on Sertraline and it will take at least 2 to 3 weeks before she can tell whether it is helping or not (14) Overweight (BMI 25.0-29.9): Code(s): E66.3 - Overweight Plan: Reinforced diet/exercise as tolerated/lose weight (15) Unsteady gait: Code(s): R26.81 - Unsteadiness on feet Plan: She is currently still going to physical therap for gait training and strengthening Plan Follow up in 4 months Orders: Orders Comprehensive [place]. Panel Fast 4 Months E78.00 - Pure hypercholesterolemia, unspecified Urine Cytology 4 Months R31.1 - Benign essential microscopic hematuria Complete Blood Count Auto Diff 4 Months D64.9 - Anemia, unspecified Lipid Panel 4 Months E78.00 - Pure hypercholesterolemia, unspecified Hemoglobin A1c 4 Months R73.01 - Impaired fasting glucose TSH reflex Free T4 4 Months E78.00 - Pure hypercholesterolemia, unspecified UA CC w/rflx Micro + Cult 4 Months R30.0 - Dysuria Vitamin D 25-OH Total 4 Months E55.9 - Vitamin D deficiency, unspecified Coding Level of Care Code Est Pt Level 4 (25680) Complex EM visit Add On G2211 Diagnoses Benign essential hypertension I10 Pure hypercholesterolemia E78.00 Impaired fasting glucose R73.01 Vitamin D deficiency E55.9 GERD without esophagitis K21.9 Constipation, unspecified constipation type K59.00 Constipation type: unspecified constipation type Calculus of gallbladder without cholecystitis without obstruction K80.20 Cholelithiasis location: gallbladder Cholecystitis presence: without cholecystitis Biliary obstruction: without biliary obstruction Allergic rhinitis, unspecified seasonality, unspecified trigger J30.9 Allergic rhinitis trigger: unspecified Allergic rhinitis seasonality: unspecified Venous insufficiency of both lower extremities I87.2 Asymptomatic microscopic hematuria R31.21 Hematuria type: asymptomatic microscopic History of breast cancer Z85.3 Anxiety F41.9 Episode of recurrent major depressive disorder, unspecified depression episode severity F33.9 Depression Type: major depressive disorder Major depression recurrence: recurrent Active/Remission status: currently active Major depression episode severity: unspecified Overweight (BMI 25.0-29.9) E66.3 Unsteady gait R26.81
== END 2024-06-10 11:56 | disposition home or self-care (01) ==
PROVIDERS: PCP Internal Medicine; Visit Provider Internal Medicine
DX: I10 Essential (primary) hypertension (principal); E78.00 Pure hypercholesterolemia, unspecified; R73.01 Impaired fasting glucose; E55.9 Vitamin D deficiency, unspecified; K21.9 Gastro-esophageal reflux disease without esophagitis; K59.00 Constipation, unspecified; K80.20 Calculus of gallbladder without cholecystitis without obstruction; J30.9 Allergic rhinitis, unspecified; I87.2 Venous insufficiency (chronic) (peripheral); R31.21 Asymptomatic microscopic hematuria; Z85.3 Personal history of malignant neoplasm of breast; F33.9 Major depressive disorder, recurrent, unspecified; F41.9 Anxiety disorder, unspecified; E66.3 Overweight; R26.81 Unsteadiness on feet
CPT/HCPCS: 99214; G2211

== ENCOUNTER 2024-07-17 11:00 | Outpatient (RCR) | payer MEDICARE, SELFPAY ==
--- NOTE | 2024-05-08 16:33 | MHC.PT.EP ---
[facility] [employer] [facility] [place] [facility] [place] Office [address] Baltazar Hamilton [address] [phone] F: [phone] F: [phone] F: [phone] F: [phone] Physical Therapy Plan of Care Date of Evaluation: 05/08/24 Date of Surgery: N/A Diagnosis: gait and instability (RL) Assessment: pt is a 78 y/o female presenting to physical therapy w/ referring diagnosis of gait and instability. Impairments include pain, decreased range of motion, decreased strength, impaired functional mobility, impaired postural awareness, and altered ambulation mechanics. pt is a good candidate for skilled PT due to age, potential remediation of impairments, typical disease/condition progression and prognosis, comorbidities, and motivation. pt would benefit from skilled PT intervention to provide a tailored strengthening and stretching exercise program, functional training, gait training, postural re-training, neuromuscular re-education, modalities as needed for pain, equipment safety demonstration. Frequency and Duration: The patient will be seen 2x/wk for 4 wks Short Term Goals: pt will be I w/ HEP to promote self-management of condition. pt will improve B knee extension strength by 1 MMT grade to promote ease in sit<>stand transfers. pt will participate in 5xSTS and TUG for baseline balance testing. Systems Test Engineer Goals: pt will report a statistically significant improvement in self-reported outcome measure to promote return to PLOF. pt will ambulate x1000' w/ LRAD and no LOB to reduce fall risk w/ community ambulation. Treatment Plan: Modalities to reduce pain, spasms and effusion. Manual therapy to restore motion and function. Therapeutic exercise to improve strength and flexibility. Neuromuscular re-education for posture and balance. Therapeutic activities to return to functional activities of daily living. Electronically signed by: Daisy Mendoza PT, DPT Please sign and return to therapist. Thank you for your referral.
--- NOTE | 2024-07-30 15:22 | MHC.PT.DC ---
[facility] [place] Office [place] Office [place] Office [address] Baltazar Hamilton [address] [facility] [phone] F: [phone] F: [phone] F: [phone] F: [phone] Physical Therapy Discharge Report Diagnosis: gait and instability (RL) Date of Surgery: N/A Date of Evaluation: 05/08/24 Date of Discharge: 07/30/24 Treatments to Date: 10 Cancellations to Date: 1 No Shows to Date: 0 Discharge Status: Independent with HEP Recommend MD Follow-up Discharge Summary: The patient arrived today stating she feels she would like to discontinue PT at this time. She has a copay and arranging transportation is stressful for her. She has a home exercise program which we reviewed today. She was given the opportunity to ask any questions and they were answered to the best of my ability. I did recommend when she sees her PCP to mention the hip pain and see if there's anything they could do for her pain. She is discharged from this physical therapy plan of care. Electronically signed by: Daisy Mendoza PT, DPT Please sign and return to therapist. Thank you for your referral.
== END 2024-07-30 15:23 | disposition home or self-care (01) ==
LOC: HO.PT 11:00
PROVIDERS: PCP Internal Medicine; Visit Provider Internal Medicine
DX: R26.81 Unsteadiness on feet (principal)
CPT/HCPCS: 97110; 97116; 97162; 97530

== ENCOUNTER 2024-10-04 10:27 | Outpatient (REF) | payer MEDICARE, SELFPAY ==
[2024-10-04 13:03] LABS: MANUAL DIFF FLAG NO
[2024-10-04 13:05] LABS: Basophils Percent Auto 0.5 % (0-2); Eosinophils Percent Auto 0.1 % (0-4); Hematocrit 41.1 % (37.0-47.0); Imm Gran Abs Auto 0.02 X10*3/uL (0.00-0.03); Imm Gran Pct Auto 0.3 % (0.0-0.4); Lymphocytes Absolute Auto 1.2 X10*3/uL (1.2-4.9); Lymphocytes Percent Auto 15.6 % (20-40); Mean Corpuscular HGB Conc 34.1 g/dl (31.0-35.0); Mean Corpuscular Hemoglobin 32.3 pg (27.0-33.0); Mean Corpuscular Volume 94.7 fL (80.0-98.0); Mean Platelet Volume 9.7 fL (9.4-12.3); Monocytes Absolute Auto 0.5 X10*3/uL (0.1-1.2); Monocytes Percent Auto 7.3 % (2-11); Neutrophils Absolute Auto 5.7 x10*3/uL (2.0-8.3); Neutrophils Percent Auto 76.2 % (45-73); Platelet Count 343 X10*3/uL (160-400); Red Blood Count 4.34 X10*6/uL (4.20-5.50); Red Cell Distribution Width 12.3 % (11.0-16.0); White Blood Count 7.4 X10*3/uL (4.8-10.8)
[2024-10-04 13:30] LABS: Estimated Average Glucose 103 mg/dL; Hemoglobin A1C 115.0198 umol/L; Hemoglobin A1c % 5.2 % (<6.0); Total Hemoglobin (HGBA1C) 3410.2352 umol/L
[2024-10-04 13:37] LABS: Alanine Aminotransferase 8 U/L (0-31); Albumin Level 4.2 g/dL (3.5-5.0); Alkaline Phosphatase 89 U/L (39-117); Anion Gap 13 (12-20); Aspartate Amino Transferase 21 U/L (5-31); Bilirubin Total 0.6 mg/dL (0.0-1.0); Blood Urea Nitrogen 12 mg/dL (9-16); Calcium 10.2 mg/dL (8.4-10.2); Carbon Dioxide 26 mmol/L (22-29); Chloride 102 mmol/L (96-108); Cholesterol 163 mg/dL (<200); Estimated Glomerular Filt Rate > 60; Glucose Fasting 115 mg/dL (60-99); HDL Cholesterol 58 mg/dL (>40); LDL Cholesterol Calculated 85 mg/dL (<100); Potassium 3.7 mmol/L (3.3-5.1); Sodium 137 mmol/L (135-145); Total Protein 7.3 g/dL (6.5-8.0); Triglycerides 100 mg/dL (<150)
[2024-10-04 13:52] LABS: Vitamin D 25-OH Total 92.9 ng/mL (>30)
[2024-10-04 14:09] LABS: TSH reflex Free T4 1.47 uIU/mL (0.32-4.0)
== END 2024-10-04 10:28 | disposition home or self-care (01) ==
LOC: HO.HMGCLDS 10:27
PROVIDERS: PCP Internal Medicine; Visit Provider Internal Medicine
DX: E55.9 Vitamin D deficiency, unspecified (principal); E78.00 Pure hypercholesterolemia, unspecified; D64.9 Anemia, unspecified; R73.01 Impaired fasting glucose
CPT/HCPCS: 36415; 80053; 80061; 82306; 83036; 84443; 85025

== ENCOUNTER 2024-10-08 10:02 | Outpatient (AMB) | payer MEDICARE, SELFPAY ==
[2024-10-08 10:09] VITALS: BP 118/74; PULSE 88; O2SAT 99; BMI 21.2
--- NOTE | 2024-10-08 10:09 | A.OFFPC_ITS ---
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 Supervisor Required: No Accompanied by: Self / Same As Patient Allergies Penicillins Allergy (Mild, Verified 10/08/24 11:05) HIVES codeine Allergy (Unknown, Verified 10/08/24 11:05) nausea Medication List - Last Reconciled 10/08/24 by Clifford Bucio MD amlodipine 10 mg PO DAILY 90 days cholecalciferol (vitamin D3) 25 mcg PO DAILY 90 days famotidine 20 mg PO BID 90 days [LIGHTWEIGHT ROLLATOR As directed] lisinopril 40 mg PO DAILY 90 days lorazepam 0.5 mg PO TID PRN 30 days polyethylene glycol 3350 (Miralax) 17 grams PO DAILY psyllium husk (Metamucil) 0.4 grams PO DAILY 90 days sertraline 25 mg PO DAILY 90 days simethicone (Gas Relief (simethicone)) 125 mg PO ONCE PRN simvastatin 20 mg PO BEDTIME 90 days tramadol 50 mg PO TID PRN Tobacco use date assessed: 10/08/24 Fall risk assessment: 1 Fall in past year Last assessed Fall Risk: 10/08/24 Dental Screening Dental Screen Date: 10/08/24 Did you have a dental visit in the last 12 months?: No Did you have a dental problem in the last 6 months where you did not have access to dental care?: No Was dental information given to patient?: Patient has dentist HPI 4 Month F/U HPI Details Patient comes in today for her follow up visit States that she feels okay but continues to appear very anxious We attempted to start her on Sertraline 25 mg Q AM at a previous visit but she stopped taking it after a couple of days as she did not feel that they were helping despite our repeated reminders to her that the medication should be taken everyday for a few weeks for it to start helping her She has never gone back on the medication despite our repeated attempts to convince her to do so Adds that she stopped going to physical therapy a couple of months ago as she f inds the chair exercises that they were doing for her unhelpful and feeling that walking exacerbated her pain, particularly in the right hip area and in her proximal right leg She keeps expressing her uncertainty if the pain is due to arthritis or not and states that the pain still continues to bother her a lot even with her doing the exercises that physical therapy taught her on her own at home - is now wondering if she should go back to PT She denies any headaches or dizziness Denies any chest pains, no SOB No nausea/vomiting, still has on and off right-sided abdominal pain and occasional diarrhea/loose stools but otherwise, states that she has no significant change in bowel habits She reports having a recurrent rash under her breasts and states that they itch and feel irritated at times and is concerned if these could be shingles and wants to know if she should get her shingles vaccine as she does not think that she has ever gotten them in the past She is also worried now about her recent weight loss as she has noticed that she has lost about 10 pounds since her last visit Recalls that her daughter, who could not come in with her today, wanted her to make sure all of her med refills are sent to her pharmacy today She had her follow up labs done a few days ago - to discuss her results ON LICENSE OF [facility] Medical History Hx of flexible sigmoidoscopy Breast cancer Overweight (BMI 25.0-29.9) Depression Anxiety Venous insufficiency of both lower extremities Nocturnal leg cramps Allergic rhinitis Constipation GERD without esophagitis Vitamin D deficiency Impaired fasting glucose Pure hypercholesterolemia Benign essential hypertension Surgical History History of esophagogastroduodenoscopy (EGD) H/O lumpectomy History of lumpectomy of right breast History of colonoscopy Family History Father Hypertension Stroke Mother Stroke Hypertension Social History Household Members: None Housing: Apartment Housing Other:: Independent living Alcohol intake: current Alcohol intake frequency: holidays/special occasions only Alcohol type: wine Patient Tobacco Use Status: Never used Tobacco e-Cigarette/Vaping Use: Never Used Second Hand Smoke Exposure: Yes service: No Current occupational status: retired Cognitive needs: Yes (cane) Hearing needs: Yes Vision needs: Yes Questionnaire PHQ-9 Over the last 2 weeks, how often have you been bothered by any of the following problems? 1. Little interest or pleasure in doing things: not at all 2. Feeling down, depressed, or hopeless: several days 3. Trouble falling or staying asleep, or sleeping too much: several days 4. Feeling tired or having little energy: several days 5. Poor appetite or overeating: not at all 6. Feeling bad about yourself - or that you are a failure or have let yourself or your family down: not at all 7. Trouble concentrating on things, such as reading the newspaper or watching television: not at all 8. Moving or speaking so slowly that other people could have noticed. Or the opposite - being so fidgety or restless that you have been moving around a lot more than usual: not at all 9. Thoughts that you would be better off or of hurting yourself in some way: not at all Total score: 3 Depression Screening Interpretation: Positive Depression Screening Follow-up: Existing condition and In treatment Depression Screening Done: Yes 65883 - PHQ-9 Billing: Yes Source: Developed by Drs. Woodrow Ortega, Kaitlyn Winters, Ihsan Novoa and colleagues, with an educational kirby from [employer] Thrive Questionnaire Date Thrive assessed: 10/08/24 I am a: Patient What is your living situation today?: I have a steady place to live Within the past 12 months, did the food you bought not last and you didn't have the money to get more?: Never true Within the past 12 months, did you worry whether your food would run out before you got money to buy more?: Never true Do you have trouble paying for medicines?: No Do you have trouble getting transportation to medical appointments?: No Do you have trouble paying your heating and electricity bill?: No Do you have trouble taking care of your child, family member or friend?: No Do you have trouble with day-to-day activities such as bathing, preparing meals, shopping, managing finances, etc.?: No Are you currently unemployed and looking for a job?: No Are you interested in more education?: No Please select the resources that you would like help with: None Currently or been in a relationship where the following occur: No concerns reported THRIVE Score: 0 AUDIT C Alcohol Use Questionnaire (AUDIT-C) 1. How often do you have a drink containing alcohol?: Monthly or less 2. How many drinks containing alcohol do you have on a typical day when you are drinking?: 1 or 2 3. How often do you have six or more drinks on one occasion?: Never Total Score: 1 Score Reviewed/Action Taken: Yes ANURADHA-7 AMB Questionnaire ANURADHA-7 Date ANURADHA - 7 assessed: 10/08/24 Feeling nervous, anxious, or on edge: 0 = Not at all Not being able to stop or control worryin = Not at all Worrying too much about different things: 0 = Not at all Trouble relaxin = Not at all Being so restless that it is hard to sit still: 0 = Not at all Becoming easily annoyed or irritable: 0 = Not at all Feeling afraid as if something awful might happen: 0 = Not at all Total ANURADHA-7 score (0-4 normal; 5-9 mild; 10-14 moderate; 15-21 severe): 0 Source: Developed by Drs. Woodrow Ortega, Kaitlyn Winters, Ihsan Novoa and colleagues, with an educational kirby from [employer] Review of Systems Const Denies chills, Denies fatigue, Denies fever(s) and Denies headache(s) ENT Denies dysphagia, Denies dizziness, Denies otalgia, Denies headache(s), Denies neck pain, Denies odynophagia and Denies sore throat Card Denies chest pain, Denies palpitations and Denies dyspnea Resp Denies chest congestion, Denies cough and Denies dyspnea GI Reports abdominal pain (occasional cramping pain over the right lower abdomen), Reports constipation (on and off), Denies dysphagia, Denies heartburn, Reports diarrhea (has on and off bouts of diarrhea ), Denies nausea, Denies odynophagia and Denies vomiting Denies nocturia, Denies dysuria, Reports urinary incontinence and Denies urinary urgency Musc Denies back pain, Denies arthralgias, Reports muscle weakness (over both legs at times) and Denies neck pain Skin/Breast Denies rash Neuro Denies dizziness and Denies headache(s) Psych Details: she has been prescribed Sertraline a few times in the past but patient keeps deciding NOT to take them when she gets home from her visit Reports anxiety (increased; chronic - worries incessantly over everything) Endo Denies fatigue and Denies palpitations Physical exam (Primary Care) Vital Signs: Last Vital Signs Pulse 88 10/08/24 10:09 BP 118/74 10/08/24 10:09 Pulse Ox 99 10/08/24 10:09 Oxygen Delivery Method Room Air 10/08/24 10:09 BMI result Body Mass Index 21.2 Tobacco/Smoking Status: Tobacco use Status Tobacco use date assessed 10/08/24 10/08/24 10:19 Patient Tobacco Use Status Never used Tobacco 10/08/24 10:19 e-Cigarette/Vaping Use Never Used 10/08/24 10:19 PHQ-9: PHQ-9 Score PHQ-9: Total score 3 10/08/24 10:19 Depression Screening Interpretation: Positive Depression Screening Follow-up: Existing condition and In treatment Thrive Assessment: Date of Thrive Assessment Date Thrive assessed 10/08/24 10/08/24 10:19 Currently or been in a relationship where the following occur: No concerns reported Const General: no acute distress, alert and anxious HENMT Ears: TM's normal bilaterally and EAC's normal Throat: Yes posterior oropharynx normal and Yes tonsils normal Neck Neck: Yes no lymphadenopathy and Yes supple Thyroid: Thyroid normal Lymphatic: no lymphadenopathy noted Resp Auscultation: clear to auscultation bilaterally, no rales and no wheezes Cardio Rate: regular rate Rhythm: regular rhythm Heart sounds: no murmurs GI Palpation (GI): Tenderness to palpation present (GI) (diffuse discomfort and mild tenderness on palpation) in the RUQ, no guarding, not rigid and No Rebound tenderness present General: Yes no CVA tenderness Back/Spine/Pelvis Back: no CVA tenderness Thoracic/Lumbar Spine: No lumbar spinal tenderness Sacroiliac joints: bilaterally nontender Skin Rashes: no rashes Extrem General: Yes no clubbing, cyanosis or edema Right lower extremity: hip/thigh Details: normal ROM; no tenderness Psych Affect: Anxious affect present Results Reviewed Results Reviewed: Laboratory Tests 10/04/24 10:35 WBC 7.4 Hgb 14.0 Hct 41.1 Plt Count 343 Sodium 137 Potassium 3.7 Fasting Glucose 115 H Hemoglobin A1c % 5.2 Calcium 10.2 AST 21 ALT 8 Triglycerides 100 Cholesterol 163 LDL Cholesterol, Calc 85 HDL Cholesterol 58 25-OH Vitamin D Total 92.9 TSH 1.47 Coding Level of Care Code Est Pt Level 4 (98434) Complex EM visit Add On G2211 Diagnoses Pure hypercholesterolemia E78.00 Benign essential hypertension I10 Impaired fasting glucose R73.01 Vitamin D deficiency E55.9 GERD without esophagitis K21.9 Constipation, unspecified constipation type K59.00 Constipation type: unspecified constipation type Calculus of gallbladder without cholecystitis without obstruction K80.20 Cholelithiasis location: gallbladder Cholecystitis presence: without cholecystitis Biliary obstruction: without biliary obstruction Allergic rhinitis, unspecified seasonality, unspecified trigger J30.9 Allergic rhinitis trigger: unspecified Allergic rhinitis seasonality: unspecified Venous insufficiency of both lower extremities I87.2 History of breast cancer Z85.3 Pain of right lower extremity M79.604 Unsteady gait R26.81 Anxiety F41.9 Episode of recurrent major depressive disorder, unspecified depression episode severity F33.9 Depression Type: major depressive disorder Major depression recurrence: recurrent Active/Remission status: currently active Major depression episode severity: unspecified Overweight (BMI 25.0-29.9) E66.3 Bilateral hearing loss, unspecified hearing loss type H91.93 Hearing loss type: unspecified Laterality: bilateral Additional Codes PHQ-9 - 56349 - PHQ-9 Billing: Yes ([id number]) Assessment & Plan Assessment & Plan (1) Pure hypercholesterolemia: Code(s): E78.00 - Pure hypercholesterolemia, unspecified Category: Medical Plan: Results of her labs done a few days ago reviewed and discussed with patient Reinforced low cholesterol diet Continue Simvastatin 20 mg QD Will recheck her labs and fasting lipids in 4 months for follow-up (2) Benign essential hypertension: Code(s): I10 - Essential (primary) hypertension Category: Medical Plan: Reinforced low-sodium diet -? goal is systolic BP of at least 140 mm or less Continue Lisinopril 40 mg QD and Amlodipine 10 mg QD Patient is reminded to continue monitoring her blood pressure regularly (3) Impaired fasting glucose: Code(s): R73.01 - Impaired fasting glucose Category: Medical Plan: Her FBS was elevated at 115 mg/dl on her recent labs but her HgbA1c remained normal at 5.2% (HgbA1c was at 5.3% a few months ago Reinforced low calorie/low carb diet; exercise as tolerated (4) Vitamin D deficiency: Code(s): E55.9 - Vitamin D deficiency, unspecified Category: Medical Plan: Continue Vitamin D3 1000 units QD (5) GERD without esophagitis: Code(s): K21.9 - Gastro-esophageal reflux disease without esophagitis Category: Medical Plan: Dietary restrictions reinforced Continue Famotidine 20 mg BID as needed (6) Constipation: Code(s): K59.00 - Constipation, unspecified Category: Medical Qualifiers: Constipation type: unspecified constipation type Qualified Code(s): K59.00 - Constipation, unspecified Plan: She is again encouraged on increased oral fluids and dietary fiber Continue Senna 8.6 mg 1-2 tablets once a day as needed and Miralax 17 gm QD Patient states that she drinks prune juice first when she starts getting constipated and this helps keep her symptoms somewhat better controlled She had repeat colonoscopy done in April 2024 - colonoscopy came out normal although recent imaging studies revealed (+) gallstones Follow up with GI as scheduled (7) Cholelithiasis: Code(s): K80.20 - Calculus of gallbladder without cholecystitis without obstruction Category: Medical Qualifiers: Cholelithiasis location: gallbladder Cholecystitis presence: without cholecystitis Biliary obstruction: without biliary obstruction Qualified Code(s): K80.20 - Calculus of gallbladder without cholecystitis without obstruction Plan: This was seen incidentally on recent imaging studies and patient was referred by GI to surgery for further evaluation and consideration for laparoscopic cholecystectomy as she was advised that large gallstones pose a higher risk for malignancy It does not appear that patient has been scheduled yet to see surgery and she is advised to have her daughter follow up with surgery or with Dr. Haddad's office regarding this (8) Allergic rhinitis: Code(s): J30.9 - Allergic rhinitis, unspecified Category: Medical Qualifiers: Allergic rhinitis trigger: unspecified Allergic rhinitis seasonality: unspecified Qualified Code(s): J30.9 - Allergic rhinitis, unspecified Plan: Continue Fluticasone 50 mcg nasal spray 1 spray into each nostril once a day (9) Venous insufficiency of both lower extremities: Code(s): I87.2 - Venous insufficiency (chronic) (peripheral) Category: Medical Plan: She is again encouraged again to continue elevating her legs and feet as often a s she can to help minimize her pedal edema Patient also wears compression stockings, which she states have helped a lot (10) History of breast cancer: Code(s): Z85.3 - Personal history of malignant neoplasm of breast Category: Medical Plan: 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 Ultrasound-guided core biopsy done on 10/04/2010 revealed (+) ductal carcinoma in situ, ER/KS positive She subsequently underwent left breast lumpectomy and left axillary sentinel node biopsy in October 2010 - pathology revealed DCIS without evidence of invasive tumor She received adjuvant radiotherapy and was on Tamoxifen from October 2010 to October 2013 She was diagnosed then with stage I right breast carcinoma in September 2013 - also noted on routine mammogram She underwent lumpectomy on 10/01/2014 which revealed a 0.7 cm invasive ductal carcinoma grade 1 with no lymphovascular invasion - stage was [id number]. She then underwent radiation therapy and was switched from Tamoxifen therapy to Letrozole beginning on 10/25/2013 and completed 5 years of letrozole in October 2019 She continues to follow up with oncology regularly for surveillance and goes for her yearly mammogram as scheduled (11) Pain of right lower extremity: Code(s): M79.604 - Pain in right leg Category: Medical Plan: Patient continues to complain of increased pain and discomfort in her right leg and she feels that this is the main reason she is unable to walk properly She is not quite sure where the pain is coming from when she is asked about her symptoms and just keeps pointing to the area between her right hip and right thigh Exam done in the office reveals no appreciable tenderness over the right hip, lumbar spine, SI joints and right gluteal area She reports that the symptoms come on when she starts walking Will send her for x-rays of the pelvis, right hip and right thigh to see if these will help us in localizing or narrowing down the source of her recurrent symptoms/discomfort and we can then have a better idea of how to go about helping her (12) Unsteady gait: Code(s): R26.81 - Unsteadiness on feet Category: Medical Plan: Will try referring her back to physical therapy to help improve her gait and mobility Patient is strongly encouraged to get her x-rays done BEFORE she goes back to PT (13) Anxiety: Code(s): F41.9 - Anxiety disorder, unspecified Category: Medical Plan: Patient continues to exhibit significant anxiety and worries incessantly over everything and anything She keeps repeating that she does not want to have to take more medicines if she can avoid it but on the other hand, keeps apologizing for her behavior and states that she does not want to continue feeling this way Have advised that that a lot of her perceived issues, especially her recent weight loss may actually be related to her anxiety - discussed that significant anxiety can affect almost everything she does on a daily basis, including what and how she eats and I suspect that her recent weight loss may be due to inadequate oral intake brought on by her significant anxiety even though patient feels that she is eating enough After a few attempts again to convince her, she finally agrees to try Sertraline again but states that her previous Rx is now and she will need a new Rx sent to her pharmacy Will have her start taking Sertraline 25 mg Q AM and she is again reminded to take this everyday Have reassured her that she can still continue taking Lorazepam 0.5 mg 1 tablet 2 to 3 times a day as needed - she keeps worrying that taking Sertraline means she will no longer have her Lorazepam to take and I have repeatedly told her this is NOT the case Hopefully she will stay on the Rx this time and not change her mind again on this immediately when she gets home or we will be back to [facility] with her Follow-up with her counselor /therapist as scheduled (14) Depression: Code(s): F32.9 - Major depressive disorder, single episode, unspecified Category: Medical Qualifiers: Depression Type: major depressive disorder Major depression recurrence: recurrent Active/Remission status: currently active Major depression episode severity: unspecified Qualified Code(s): F33.9 - Major depressive disorder, recurrent, unspecified Plan: States that she has been doing well with this lately and she continues to follow-up with her counselor / therapist regularly She has been prescribed Escitalopram in the past but patient declined the Rx She agreed to try Sertraline previously but took it only for a couple of days - have agreed AGAIN now to start back on Sertraline She is reminded that it will take at least 2 to 3 weeks of daily use before she can tell whether the Rx is helping or not (15) Overweight (BMI 25.0-29.9): Code(s): E66.3 - Overweight Category: Medical Plan: Reinforced diet/exercise as tolerated/lose weight (16) Hearing loss: Code(s): H91.90 - Unspecified hearing loss, unspecified ear Category: Medical Qualifiers: Hearing loss type: unspecified Laterality: bilateral Qualified Code(s): H91.93 - Unspecified hearing loss, bilateral Plan: Patient is strongly encouraged to pursue getting her hearing aids KEE and start wearing them all the time as it is getting more time consuming and more difficult to have a conversation with her when she comes in for her appointment, especially with her severe anxiety and tendency to have to keep repeating things again and again to her Plan - Have x-rays of the pelvis and thighs done as soon as possible. - Start BACK on discussed anxiety medication (Sertraline) and to take it daily. - Return to physical therapy contingent upon x-ray results. - Consult with pharmacy to refill all prescriptions; ensure daughter facilitates this - all Rx refills sent to pharmacy today - Monitor dietary intake due to weight loss; consult if ongoing. - Consider getting an evaluation for hearing aids. - Use prescribed cream for rash; avoid self-diagnoses of shingles. Follow up in 4 months Orders: Orders XR hip RT w PEL1V Today M25.551 - Pain in right hip, M79.604 - Pain in right leg UA CC w/rflx Micro + Cult 4 Months R30.0 - Dysuria Vitamin D 25-OH Total 4 Months E55.9 - Vitamin D deficiency, unspecified XR femur RT 2V Today M79.604 - Pain in right leg PT Evaluation and Treatment Today M25.551 - Pain in right hip, M79.604 - Pain in right leg Complete Blood Count Auto Diff 4 Months D64.9 - Anemia, unspecified Lipid Panel 4 Months E78.00 - Pure hypercholesterolemia, unspecified TSH reflex Free T4 4 Months E78.00 - Pure hypercholesterolemia, unspecified Comprehensive [place]. Panel Fast 4 Months E78.00 - Pure hypercholesterolemia, unspecified Medications: New clotrimazole 1% 1 appl topical BID 2 weeks 30 grams 0RF rash Refilled tramadol 50 mg PO TID PRN 12 tabs 0RF severe pain (scale score 7-10) amlodipine 10 mg PO DAILY 90 days 90 tabs 1RF I10 - Essential (primary) hypertension cholecalciferol (vitamin D3) 25 mcg PO DAILY 90 days 90 caps 3RF famotidine 20 mg PO BID 90 days 180 tabs 1RF lorazepam 0.5 mg PO TID 30 days PRN 90 tabs 1RF anxiety simvastatin 20 mg PO BEDTIME 90 days 90 tabs 1RF E78.00 - Pure hypercholesterolemia, unspecified lisinopril 40 mg PO DAILY 90 days 90 tabs 1RF I10 - Essential (primary) hypertension sertraline Take 1 tablet daily every morning for anxiety - has to be taken everyday for it to be effective 25 mg PO DAILY 90 days 90 tabs 1RF anxiety
== END 2024-10-08 11:41 | disposition home or self-care (01) ==
PROVIDERS: PCP Internal Medicine; Visit Provider Internal Medicine
DX: E78.00 Pure hypercholesterolemia, unspecified (principal); I10 Essential (primary) hypertension; R73.01 Impaired fasting glucose; E55.9 Vitamin D deficiency, unspecified; K21.9 Gastro-esophageal reflux disease without esophagitis; K59.00 Constipation, unspecified; K80.20 Calculus of gallbladder without cholecystitis without obstruction; J30.9 Allergic rhinitis, unspecified; I87.2 Venous insufficiency (chronic) (peripheral); Z85.3 Personal history of malignant neoplasm of breast; M79.604 Pain in right leg; F33.9 Major depressive disorder, recurrent, unspecified; R26.81 Unsteadiness on feet; F41.9 Anxiety disorder, unspecified; E66.3 Overweight; H91.93 Unspecified hearing loss, bilateral

== ENCOUNTER → 2024-10-08 10:02 | Outpatient (BNVA) | payer MEDICARE, SELFPAY | PROVIDERS: PCP Internal Medicine; Visit Provider Internal Medicine | DX: E78.00 Pure hypercholesterolemia, unspecified (principal); I10 Essential (primary) hypertension; R73.01 Impaired fasting glucose; E55.9 Vitamin D deficiency, unspecified; K21.9 Gastro-esophageal reflux disease without esophagitis; K59.00 Constipation, unspecified; K80.20 Calculus of gallbladder without cholecystitis without obstruction; J30.9 Allergic rhinitis, unspecified; I87.2 Venous insufficiency (chronic) (peripheral); M79.604 Pain in right leg; R26.81 Unsteadiness on feet; F41.9 Anxiety disorder, unspecified; F33.9 Major depressive disorder, recurrent, unspecified; E66.3 Overweight; H91.93 Unspecified hearing loss, bilateral; Z85.3 Personal history of malignant neoplasm of breast | CPT/HCPCS: 96127; 99212 ==

== ENCOUNTER 2024-10-16 10:14 | Outpatient (REF) | payer MEDICARE, SELFPAY ==
--- NOTE | ~2024-10-16 | XR_ITS ---
EXAMINATION: XR RIGHT FEMUR CLINICAL INFORMATION: Pain in right leg M79.604. COMPARISON: None available. TECHNIQUE: AP and lateral views of the right femur were obtained. FINDINGS: Severe degenerative changes of the right hip joint. Severe patellofemoral degenerative changes. Mild osteopenia. The soft tissues are unremarkable. XR/XR femur RT 2V IMPRESSION: Severe degenerative changes of the right hip and patellofemoral joint. Electronically signed by: John Moncada MD 11/05/2024 01:10 PM EST
== END 2024-10-16 10:15 | disposition home or self-care (01) ==
LOC: HO.HMGCX 10:14
PROVIDERS: PCP Internal Medicine; Visit Provider Internal Medicine
DX: M79.604 Pain in right leg (principal)
CPT/HCPCS: 73552

== ENCOUNTER 2024-12-10 13:19 | Outpatient (REF) | payer MEDICARE, SELFPAY | END 2024-12-10 13:20 | disposition home or self-care (01) | LOC: HO.MAMMO 13:19 | PROVIDERS: PCP Internal Medicine; Visit Provider Internal Medicine | DX: Z12.31 Encounter for screening mammogram for malignant neoplasm of breast (principal) | CPT/HCPCS: 77063; 77067 ==

== ENCOUNTER → 2024-12-10 13:45 | Outpatient (BNV) | payer MEDICARE, SELFPAY | PROVIDERS: PCP Internal Medicine; Visit Provider Internal Medicine | DX: Z12.31 Encounter for screening mammogram for malignant neoplasm of breast (principal) | CPT/HCPCS: 77063; 77067 ==

== ENCOUNTER 2025-01-07 09:37 | Outpatient (REF) | payer MEDICARE, SELFPAY | END 2025-01-07 09:38 | disposition home or self-care (01) | LOC: HO.HOSX 09:37 | PROVIDERS: Visit Provider Physician Assistant | DX: Z13.89 Encounter for screening for other disorder (principal) ==

== ENCOUNTER 2025-01-31 10:15 | Outpatient (REF) | payer MEDICARE, SELFPAY ==
[2025-01-31 13:18] LABS: MANUAL DIFF FLAG NO
[2025-01-31 13:34] LABS: Basophils Absolute Auto 0.1 X10*3/uL (0.0-0.2); Basophils Percent Auto 0.8 % (0-2); Eosinophils Percent Auto 0.5 % (0-4); Hematocrit 40.1 % (37.0-47.0); Hemoglobin 13.3 g/dl (12.0-16.0); Imm Gran Abs Auto 0.02 X10*3/uL (0.00-0.03); Imm Gran Pct Auto 0.3 % (0.0-0.4); Lymphocytes Absolute Auto 1.4 X10*3/uL (1.2-4.9); Lymphocytes Percent Auto 23.3 % (20-40); Mean Corpuscular HGB Conc 33.2 g/dl (31.0-35.0); Mean Corpuscular Hemoglobin 31.8 pg (27.0-33.0); Mean Corpuscular Volume 95.9 fL (80.0-98.0); Mean Platelet Volume 9.9 fL (9.4-12.3); Monocytes Absolute Auto 0.5 X10*3/uL (0.1-1.2); Monocytes Percent Auto 8.8 % (2-11); Neutrophils Percent Auto 66.3 % (45-73); Platelet Count 341 X10*3/uL (160-400); Red Blood Count 4.18 X10*6/uL (4.20-5.50); Red Cell Distribution Width 11.9 % (11.0-16.0)
[2025-01-31 14:22] LABS: Alanine Aminotransferase 18 U/L (0-31); Albumin Level 4.4 g/dL (3.5-5.0); Alkaline Phosphatase 91 U/L (39-117); Anion Gap 12 (12-20); Aspartate Amino Transferase 20 U/L (5-31); Bilirubin Total 0.6 mg/dL (0.0-1.0); Blood Urea Nitrogen 15 mg/dL (9-16); Calcium 10.3 mg/dL (8.4-10.2); Carbon Dioxide 26 mmol/L (22-29); Chloride 106 mmol/L (96-108); Cholesterol 164 mg/dL (<200); Estimated Glomerular Filt Rate > 60; Glucose Fasting 105 mg/dL (60-99); HDL Cholesterol 62 mg/dL (>40); LDL Cholesterol Calculated 85 mg/dL (<100); Potassium 3.7 mmol/L (3.3-5.1); Sodium 140 mmol/L (135-145); TSH reflex Free T4 0.94 uIU/mL (0.32-4.0); Total Protein 7.9 g/dL (6.5-8.0); Triglycerides 85 mg/dL (<150); Vitamin D 25-OH Total 63.8 ng/mL (>30)
== END 2025-01-31 10:16 | disposition home or self-care (01) ==
LOC: HO.HMGCLDS 10:15
PROVIDERS: PCP Internal Medicine; Visit Provider Internal Medicine
DX: D64.9 Anemia, unspecified (principal); E55.9 Vitamin D deficiency, unspecified; E78.00 Pure hypercholesterolemia, unspecified
CPT/HCPCS: 36415; 80053; 80061; 82306; 84443; 85025

== ENCOUNTER 2025-02-05 10:23 | Outpatient (AMB) | payer MEDICARE, SELFPAY ==
[2025-02-05 10:26] VITALS: BP 118/64; PULSE 94; O2SAT 98; BMI 19.6
--- NOTE | 2025-02-05 10:26 | MHC.PC.OV ---
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: No Accompanied by: Self / Same As Patient Allergies Penicillins Allergy (Mild, Verified 02/05/25 11:06) HIVES codeine Allergy (Unknown, Verified 02/05/25 11:06) nausea Medication List - Last Reconciled 02/05/25 by Clifford Bucio MD amlodipine 10 mg PO DAILY 90 days cholecalciferol (vitamin D3) 25 mcg PO DAILY 90 days clotrimazole 1% 1 appl topical BID 2 weeks famotidine 20 mg PO BID 90 days [LIGHTWEIGHT ROLLATOR As directed] lisinopril 40 mg PO DAILY 90 days lorazepam 0.5 mg PO TID PRN 30 days polyethylene glycol 3350 (Miralax) 17 grams PO DAILY psyllium husk (Metamucil) 0.4 grams PO DAILY 90 days sertraline 25 mg PO DAILY 90 days simethicone (Gas Relief (simethicone)) 125 mg PO ONCE PRN simvastatin 20 mg PO BEDTIME 90 days tramadol 50 mg PO TID PRN Tobacco use date assessed: 02/05/25 Fall risk assessment: 1 Fall in past year Last assessed Fall Risk: 02/05/25 Dental Screening Dental Screen Date: 02/05/25 Did you have a dental visit in the last 12 months?: No Did you have a dental problem in the last 6 months where you did not have access to dental care?: No Was dental information given to patient?: Patient has dentist HPI annual exam HPI Details Patient comes in today for her annual physical examination States that she feels okay She denies any headaches or dizziness Denies any chest pains, no SOB No nausea/vomiting, still has occasional right-sided abdominal pain and occasional diarrhea/loose stools but otherwise, states that she has no significant change in her bowel habits She denies any acute urinary symptoms Needs her Lorazepam Rx refilled She had her follow up labs done a few days ago - to discuss her results She had her annual mammogram last done a couple of months ago in November 2024 Her screening colonoscopy was last done in April 2024 - was advised no follow up colonoscopy recommended due to her age Her BMD was last done in November 2017 - (+) osteopenia with a T-score of -1.1 in the left femoral neck [facility] Medical History (Updated 02/09/25 @ 21:47 by Clifford Bucio MD) Osteopenia Hx of flexible sigmoidoscopy Breast cancer Overweight (BMI 25.0-29.9) Depression Anxiety Venous insufficiency of both lower extremities Nocturnal leg cramps Allergic rhinitis Constipation GERD without esophagitis Vitamin D deficiency Impaired fasting glucose Pure hypercholesterolemia Benign essential hypertension Surgical History History of esophagogastroduodenoscopy (EGD) H/O lumpectomy History of lumpectomy of right breast History of colonoscopy Family History Father Hypertension Stroke Mother Stroke Hypertension Social History Household Members: None Housing: Apartment Housing Other:: Independent living Alcohol intake: current Alcohol intake frequency: holidays/special occasions only Alcohol type: wine Patient Tobacco Use Status: Never used Tobacco e-Cigarette/Vaping Use: Never Used Second Hand Smoke Exposure: Yes service: No Current occupational status: retired Cognitive needs: Yes (cane) Hearing needs: Yes Vision needs: Yes Questionnaire PHQ-9 Over the last 2 weeks, how often have you been bothered by any of the following problems? 1. Little interest or pleasure in doing things: nearly every day 2. Feeling down, depressed, or hopeless: several days 3. Trouble falling or staying asleep, or sleeping too much: not at all 4. Feeling tired or having little energy: several days 5. Poor appetite or overeating: several days 6. Feeling bad about yourself - or that you are a failure or have let yourself or your family down: not at all 7. Trouble concentrating on things, such as reading the newspaper or watching television: not at all 8. Moving or speaking so slowly that other people could have noticed. Or the opposite - being so fidgety or restless that you have been moving around a lot more than usual: not at all 9. Thoughts that you would be better off or of hurting yourself in some way: not at all Total score: 6 Depression Screening Interpretation: Positive Depression Screening Follow-up: Existing condition and In treatment Depression Screening Done: Yes 14913 - PHQ-9 Billing: Yes Source: Developed by Drs. Woodrow Ortega, Kaitlyn Winters, Ihsan Novoa and colleagues, with an educational kirby from [employer]. Thrive Questionnaire Date Thrive assessed: 02/05/25 I am a: Patient What is your living situation today?: I have a steady place to live Within the past 12 months, did the food you bought not last and you didn't have the money to get more?: Never true Within the past 12 months, did you worry whether your food would run out before you got money to buy more?: Never true Do you have trouble paying for medicines?: No Do you have trouble getting transportation to medical appointments?: No Do you have trouble paying your heating and electricity bill?: No Do you have trouble taking care of your child, family member or friend?: No Do you have trouble with day-to-day activities such as bathing, preparing meals, shopping, managing finances, etc.?: No Are you currently unemployed and looking for a job?: Yes Are you interested in more education?: No Please select the resources that you would like help with: Food Currently or been in a relationship where the following occur: No concerns reported THRIVE Score: 0 AUDIT C Alcohol Use Questionnaire (AUDIT-C) 1. How often do you have a drink containing alcohol?: 2-4 times a month 2. How many drinks containing alcohol do you have on a typical day when you are drinking?: 1 or 2 3. How often do you have six or more drinks on one occasion?: Never Total Score: 2 Score Reviewed/Action Taken: Yes ANURADHA-7 AMB Questionnaire ANURADHA-7 Date ANURADHA - 7 assessed: 02/05/25 Feeling nervous, anxious, or on edge: 1 = Several days Not being able to stop or control worryin = Not at all Worrying too much about different things: 1 = Several days Trouble relaxin = Several days Being so restless that it is hard to sit still: 0 = Not at all Becoming easily annoyed or irritable: 0 = Not at all Feeling afraid as if something awful might happen: 1 = Several days Total ANURADHA-7 score (0-4 normal; 5-9 mild; 10-14 moderate; 15-21 severe): 4 Source: Developed by Drs. Woodrow Ortega, Kaitlyn Winters, Ihsan Novoa and colleagues, with an educational kirby from [employer]. Review of Systems Const Denies chills, Denies fatigue, Denies fever(s) and Denies headache(s) ENT Denies dysphagia, Denies dizziness, Denies otalgia, Denies headache(s), Denies neck pain, Denies odynophagia and Denies sore throat Card Denies chest pain, Denies palpitations and Denies dyspnea Resp Denies chest congestion, Denies cough and Denies dyspnea GI Reports abdominal pain (occasional cramping pain over the right lower abdomen), Reports constipation (on and off), Denies dysphagia, Denies heartburn, Denies diarrhea, Denies nausea, Denies odynophagia and Denies vomiting Denies nocturia, Denies dysuria, Reports urinary incontinence and Denies urinary urgency Musc Denies back pain, Reports arthralgias (in the right hip), Reports muscle weakness (over both legs at times) and Denies neck pain Skin/Breast Denies rash Neuro Denies dizziness and Denies headache(s) Psych Details: she has been prescribed Sertraline a few times in the past but patient keeps deciding NOT to take them when she gets home from her visit Reports anxiety (increased; chronic - worries incessantly over everything) Endo Denies fatigue and Denies palpitations Physical exam (Primary Care) Vital Signs: Last Vital Signs Pulse 94 02/05/25 10:26 BP 118/64 02/05/25 10:26 Pulse Ox 98 02/05/25 10:26 Oxygen Delivery Method Room Air 02/05/25 10:26 BMI result Body Mass Index 19.6 Tobacco/Smoking Status: Tobacco use Status Tobacco use date assessed 02/05/25 02/05/25 10:32 Patient Tobacco Use Status Never used Tobacco 02/05/25 10:32 e-Cigarette/Vaping Use Never Used 02/05/25 10:32 PHQ-9: PHQ-9 Score PHQ-9: Total score 6 02/05/25 11:08 Depression Screening Interpretation: Positive Depression Screening Follow-up: Existing condition and In treatment Thrive Assessment: Date of Thrive Assessment Date Thrive assessed 02/05/25 02/05/25 10:32 Currently or been in a relationship where the following occur: No concerns reported Const General: no acute distress, alert and anxious HENMT Ears: TM's normal bilaterally and EAC's normal Throat: Yes posterior oropharynx normal and Yes tonsils normal Neck Neck: Yes no lymphadenopathy and Yes supple Thyroid: Thyroid normal Lymphatic: no lymphadenopathy noted Resp Auscultation: clear to auscultation bilaterally, no rales and no wheezes Cardio Rate: regular rate Rhythm: regular rhythm Heart sounds: no murmurs GI Palpation (GI): Tenderness to palpation present (GI) (diffuse discomfort and mild tenderness on palpation) in the RUQ, no guarding, not rigid and No Rebound tenderness present General: Yes no CVA tenderness Back/Spine/Pelvis Back: no CVA tenderness Thoracic/Lumbar Spine: No lumbar spinal tenderness Sacroiliac joints: bilaterally nontender Skin Rashes: no rashes Extrem General: Yes no clubbing, cyanosis or edema Right lower extremity: hip/thigh Details: normal ROM; no tenderness Psych Affect: Anxious affect present Results Reviewed Results Reviewed: Laboratory Tests 01/31/25 10:18 WBC 6.0 Hgb 13.3 Hct 40.1 Plt Count 341 Sodium 140 Potassium 3.7 Creatinine 0.59 Estimated GFR > 60 Fasting Glucose 105 H Calcium 10.3 H AST 20 ALT 18 Total Protein 7.9 Albumin 4.4 Triglycerides 85 Cholesterol 164 LDL Cholesterol, Calc 85 HDL Cholesterol 62 25-OH Vitamin D Total 63.8 TSH 0.94 Coding Level of Care Code Est Pt Prev Care >65y(44587) Diagnoses Annual physical exam Z00.00 Pure hypercholesterolemia E78.00 Benign essential hypertension I10 Impaired fasting glucose R73.01 Vitamin D deficiency E55.9 Osteopenia of neck of femur, unspecified laterality M85.859 Osteopenia location: femoral neck Laterality: unspecified laterality GERD without esophagitis K21.9 Constipation, unspecified constipation type K59.00 Constipation type: unspecified constipation type Calculus of gallbladder without cholecystitis without obstruction K80.20 Cholelithiasis location: gallbladder Cholecystitis presence: without cholecystitis Biliary obstruction: without biliary obstruction Allergic rhinitis, unspecified seasonality, unspecified trigger J30.9 Allergic rhinitis trigger: unspecified Allergic rhinitis seasonality: unspecified Venous insufficiency of both lower extremities I87.2 History of breast cancer Z85.3 Pain of right lower extremity M79.604 Unsteady gait R26.81 Anxiety F41.9 Episode of recurrent major depressive disorder, unspecified depression episode severity F33.9 Depression Type: major depressive disorder Major depression recurrence: recurrent Active/Remission status: currently active Major depression episode severity: unspecified Bilateral hearing loss, unspecified hearing loss type H91.93 Hearing loss type: unspecified Laterality: bilateral Additional Codes PHQ-9 - 22710 - PHQ-9 Billing: Yes ([id number]) Assessment & Plan Assessment & Plan (1) Annual physical exam: Code(s): Z00.00 - Encounter for general adult medical examination without abnormal findings Category: Medical Plan: Results of her labs done a few days ago reviewed and discussed with patient She had her annual mammogram last done a couple of months ago in November 2024 Her screening colonoscopy was last done in April 2024 - was advised no follow up colonoscopy recommended due to her age Her BMD was last done in November 2017 - (+) osteopenia with a T-score of -1.1 in the left femoral neck She no longer needs to keeo up with her yearly gynecology exam and pap smear due to her age (2) Pure hypercholesterolemia: Code(s): E78.00 - Pure hypercholesterolemia, unspecified Category: Medical Plan: Reinforced low cholesterol diet Continue Simvastatin 20 mg QD Will recheck her labs and fasting lipids in 4 months for follow-up (3) Benign essential hypertension: Code(s): I10 - Essential (primary) hypertension Category: Medical Plan: Reinforced low-sodium diet -? goal is systolic BP of at least 140 mm or less Continue Lisinopril 40 mg QD and Amlodipine 10 mg QD Patient is reminded to continue monitoring her blood pressure regularly (4) Impaired fasting glucose: Code(s): R73.01 - Impaired fasting glucose Category: Medical Plan: Her FBS was slightly higher than normal at 105 mg/dl on her recent labs but her HgbA1c has been normal when previously checked at 5.2% and 5.3% in the past Reinforced low calorie/low carb diet; exercise as tolerated (5) Vitamin D deficiency: Code(s): E55.9 - Vitamin D deficiency, unspecified Category: Medical Plan: Continue Vitamin D3 1000 units QD (6) Osteopenia: Code(s): M85.80 - Other specified disorders of bone density and structure, unspecified site Category: Medical Qualifiers: Osteopenia location: femoral neck Laterality: unspecified laterality Qualified Code(s): M85.859 - Other specified disorders of bone density and structure, unspecified thigh Plan: Her BMD was last done in November 2017 - (+) osteopenia with a T-score of -1.1 in the left femoral neck Patient is encouraged to continue taking daily Calcium and Vitamin D supplements Will send patient now for repeat BMD for follow up of her osteopenia (7) GERD without esophagitis: Code(s): K21.9 - Gastro-esophageal reflux disease without esophagitis Category: Medical Plan: Dietary restrictions reinforced Continue Famotidine 20 mg BID as needed (8) Constipation: Code(s): K59.00 - Constipation, unspecified Category: Medical Qualifiers: Constipation type: unspecified constipation type Qualified Code(s): K59.00 - Constipation, unspecified Plan: She is again encouraged on increased oral fluids and dietary fiber Continue Senna 8.6 mg 1-2 tablets once a day as needed and Miralax 17 gm QD Patient states that she drinks prune juice first when she starts getting constipated and this helps keep her symptoms somewhat better controlled She had repeat colonoscopy done in April 2024 - colonoscopy came out normal although recent imaging studies revealed (+) gallstones Follow up with GI as scheduled (9) Cholelithiasis: Code(s): K80.20 - Calculus of gallbladder without cholecystitis without obstruction Category: Medical Qualifiers: Cholelithiasis location: gallbladder Cholecystitis presence: without cholecystitis Biliary obstruction: without biliary obstruction Qualified Code(s): K80.20 - Calculus of gallbladder without cholecystitis without obstruction Plan: This was seen incidentally on recent imaging studies and patient was referred by GI to surgery for further evaluation and consideration for laparoscopic cholecystectomy as she was advised that large gallstones pose a higher risk for malignancy It does not appear that patient has been scheduled yet to see surgery although she is scheduled to see Dr. Haddad for GI follow up on 04/10/2025 (10) Allergic rhinitis: Code(s): J30.9 - Allergic rhinitis, unspecified Category: Medical Qualifiers: Allergic rhinitis trigger: unspecified Allergic rhinitis seasonality: unspecified Qualified Code(s): J30.9 - Allergic rhinitis, unspecified Plan: Continue Fluticasone 50 mcg nasal spray 1 spray into each nostril once a day (11) Venous insufficiency of both lower extremities: Code(s): I87.2 - Venous insufficiency (chronic) (peripheral) Category: Medical Plan: She is again encouraged to continue to keep her legs and feet elevated as often as she can to help minimize her pedal edema Patient also wears compression stockings, which she states have helped a lot (12) History of breast cancer: Code(s): Z85.3 - Personal history of malignant neoplasm of breast Category: Medical Plan: 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 Ultrasound-guided core biopsy done on 10/04/2010 revealed (+) ductal carcinoma in situ, ER/AK positive She subsequently underwent left breast lumpectomy and left axillary sentinel node biopsy in October 2010 - pathology revealed DCIS without evidence of invasive tumor She received adjuvant radiotherapy and was on Tamoxifen from October 2010 to October 2013 She was diagnosed then with stage I right breast carcinoma in September 2013 - also noted on routine mammogram She underwent lumpectomy on 10/01/2014 which revealed a 0.7 cm invasive ductal carcinoma grade 1 with no lymphovascular invasion - stage was pT1bN0. She then underwent radiation therapy and was switched from Tamoxifen therapy to Letrozole beginning on 10/25/2013 and completed 5 years of letrozole in October 2019 She continues to follow up with oncology regularly for surveillance and goes for her yearly mammogram as scheduled (13) Pain of right lower extremity: Code(s): M79.604 - Pain in right leg Category: Medical Plan: Patient still has some pain and discomfort in her right leg, especially when she starts walking Exam done in the office reveals no appreciable tenderness over the right hip, lumbar spine, SI joints and right gluteal area X-rays of the pelvis, right hip and right thigh done back in October 2024 revealed (+) severe degenerative changes of the right hip and patellofemoral joint Follow up with orthopedics as scheduled (14) Unsteady gait: Code(s): R26.81 - Unsteadiness on feet Category: Medical Plan: Patient now feels that this has improved somewhat with physical therapy Can refer her again to PT on an as-needed basis (15) Anxiety: Code(s): F41.9 - Anxiety disorder, unspecified Category: Medical Plan: Her anxiety appears to be somewhat better controlled at present compared to a few months ago Continue Sertraline 25 mg Q AM and Lorazepam 0.5 mg 1 tablet 2 to 3 times a day as needed Follow-up with her counselor /therapist as scheduled (16) Depression: Code(s): F32.9 - Major depressive disorder, single episode, unspecified Category: Medical Qualifiers: Depression Type: major depressive disorder Major depression recurrence: recurrent Active/Remission status: currently active Major depression episode severity: unspecified Qualified Code(s): F33.9 - Major depressive disorder, recurrent, unspecified Plan: States that she has been doing well with this lately and she continues to follow-up with her counselor / therapist regularly She has been prescribed Escitalopram in the past but patient declined the Rx but is now on Sertraline Continue Sertraline 25 mg QD (17) Hearing loss: Code(s): H91.90 - Unspecified hearing loss, unspecified ear Category: Medical Qualifiers: Hearing loss type: unspecified Laterality: bilateral Qualified Code(s): H91.93 - Unspecified hearing loss, bilateral Plan: Patient is strongly encouraged to pursue getting her hearing aids KEE and start wearing them all the time as it is getting more time consuming and more difficult to have a conversation with her when she comes in for her appointment, especially with her severe anxiety and tendency to have to keep repeating things again and again to her Plan Follow up in 4 months Orders: Orders Comprehensive [place]. Panel Fast 4 Months E78.00 - Pure hypercholesterolemia, unspecified Hemoglobin A1c 4 Months R73.01 - Impaired fasting glucose Complete Blood Count Auto Diff 4 Months D64.9 - Anemia, unspecified TSH reflex Free T4 4 Months E78.00 - Pure hypercholesterolemia, unspecified UA CC w/rflx Micro + Cult 4 Months R30.0 - Dysuria Vitamin D 25-OH Total 4 Months E55.9 - Vitamin D deficiency, unspecified XR DEXA axial skeleton 02/05/ M85.80 - Other specified disorders of bone density and structure, unspecified site, Z78.0 - Asymptomatic menopausal state Lipid Panel 4 Months E78.00 - Pure hypercholesterolemia, unspecified Medications: Refilled lorazepam 0.5 mg PO TID 30 days PRN 90 tabs 1RF anxiety
== END 2025-02-05 11:37 | disposition home or self-care (01) ==
LOC: HO.HMCH 10:24
PROVIDERS: PCP Internal Medicine; Visit Provider Internal Medicine
DX: Z00.00 Encounter for general adult medical examination without abnormal findings (principal); F33.9 Major depressive disorder, recurrent, unspecified; E78.00 Pure hypercholesterolemia, unspecified; I10 Essential (primary) hypertension; R73.01 Impaired fasting glucose; E55.9 Vitamin D deficiency, unspecified; M85.859 Other specified disorders of bone density and structure, unspecified thigh; K21.9 Gastro-esophageal reflux disease without esophagitis; K59.00 Constipation, unspecified; K80.20 Calculus of gallbladder without cholecystitis without obstruction; J30.9 Allergic rhinitis, unspecified; I87.2 Venous insufficiency (chronic) (peripheral)

== ENCOUNTER → 2025-02-05 10:23 | Outpatient (BNVA) | payer MEDICARE, SELFPAY | PROVIDERS: PCP Internal Medicine; Visit Provider Internal Medicine | DX: Z00.00 Encounter for general adult medical examination without abnormal findings (principal); E78.00 Pure hypercholesterolemia, unspecified; I10 Essential (primary) hypertension; R73.01 Impaired fasting glucose; E55.9 Vitamin D deficiency, unspecified; K21.9 Gastro-esophageal reflux disease without esophagitis; M85.859 Other specified disorders of bone density and structure, unspecified thigh; K59.00 Constipation, unspecified; K80.20 Calculus of gallbladder without cholecystitis without obstruction; J30.9 Allergic rhinitis, unspecified; I87.2 Venous insufficiency (chronic) (peripheral); M79.604 Pain in right leg; R26.81 Unsteadiness on feet; F33.9 Major depressive disorder, recurrent, unspecified; H91.93 Unspecified hearing loss, bilateral; Z85.3 Personal history of malignant neoplasm of breast | CPT/HCPCS: 96127; 99397 ==

== ENCOUNTER 2025-02-27 08:33 | Outpatient (REF) | payer MEDICARE, SELFPAY ==
--- NOTE | ~2025-02-27 | XR_ITS ---
EXAMINATION: XR LUMBOSACRAL SPINE CLINICAL INFORMATION: M54.50 - Low back pain, unspecified COMPARISON: None available. TECHNIQUE: Three views of the lumbosacral spine. FINDINGS: Osteopenia versus osteoporosis. Multilevel marginal osteophyte formation and endplate sclerosis with decreased intervertebral disc height. No acute cortical disruption. No gross malalignment. Vascular calcifications. Calcifications, round with popcorn morphology pattern in the pelvis. Abundant stool. XR/XR lumbar spine 2-3V IMPRESSION: Consider ankylosing spondylitis. Limited exam. Probable calcified uterine fibroids. Atherosclerosis disease, aorta. Electronically signed by: Jaspreet Scales MD 02/27/2025 01:20 PM EDT
--- NOTE | ~2025-02-27 | XR_ITS ---
EXAMINATION: XR HIP, RIGHT CLINICAL INFORMATION: M25.559 - Pain in unspecified hip COMPARISON: 10/16/2024 TECHNIQUE: AP pelvis, and 2 views of the right hip. FINDINGS: Diffuse osteopenia. No fracture, dislocation, or suspicious bone lesion. Severe, end-stage arthritis right hip joint with superior joint space loss, [id number] appearance, subchondral sclerosis and cystic changes of both the femoral head and acetabulum. There is smooth remodeling of the femoral head as well as the acetabulum. Mild degenerative arthritis in the left hip joint. Moderate degenerative arthritis in the lower lumbar spine and bilateral SI joints. There are diffuse vascular calcifications in the soft tissues. Popcorn type calcifications in the pelvis are consistent with degenerated uterine fibroid tumors. XR/XR hip RT min 2V IMPRESSION: 1. No acute bony abnormalities. 2. Diffuse osteopenia. 3. Severe, end-stage arthritis right hip joint. Electronically signed by: Nate Zacarias MD 02/28/2025 08:03 AM EDT
== END 2025-02-27 08:34 | disposition home or self-care (01) ==
LOC: HO.HOSX 08:33
PROVIDERS: Visit Provider Physician Assistant
DX: M54.16 Radiculopathy, lumbar region (principal)
CPT/HCPCS: 72100; 73502; 99202

== ENCOUNTER 2025-02-27 09:48 | Outpatient (AMB) | payer MEDICARE, SELFPAY ==
--- NOTE | 2025-02-27 09:58 | A.OFFVIS_ITS ---
Vital Signs 02/27/25 10:05 Height 5 ft 5 in Weight 118 lb BMI 19.6 Intake Visit Reasons: New Pt - right hip pain Intake Note: [place] is a 79 year old female who presents today as a new patient with her son in law for a evaluation of her right hip/thigh pain, DOI 12/2024.Patient reports ongoing pain for 6 months and she had a fall which made her pain worse. Patient states that her pain is in her mid thigh. She notices that her leg gets numb through out the day. No previous treatment. She states that she has taken Tylenol with no relief. Allergies Penicillins Allergy (Mild, Verified 02/27/25 10:09) HIVES codeine Allergy (Unknown, Verified 02/27/25 10:09) nausea HPI HPI New Pt - right hip pain: Details: Ms. Nance is a 79 year female who presents to the office today accompanied by her son-in-law for evaluation of right lower extremity pain accompanied by numbness and tingling. She reports that in December of this year she fell but the symptoms have been present for roughly 6 months. She reports pain is in her mid thigh she denies any groin pain. She feels as though the leg becomes numb from the thigh distally at times. She has tried Tylenol with no relief. [facility] Medical History (Updated 02/27/25 @ 13:25 by Diamond Rubio PA-C) Osteopenia Hx of flexible sigmoidoscopy Breast cancer Overweight (BMI 25.0-29.9) Depression Anxiety Venous insufficiency of both lower extremities Nocturnal leg cramps Allergic rhinitis Constipation GERD without esophagitis Vitamin D deficiency Impaired fasting glucose Pure hypercholesterolemia Benign essential hypertension Surgical History History of esophagogastroduodenoscopy (EGD) H/O lumpectomy History of lumpectomy of right breast History of colonoscopy Family History Father Hypertension Stroke Mother Stroke Hypertension Social History Household Members: None Housing: Apartment Housing Other:: Independent living Alcohol intake: current Alcohol intake frequency: holidays/special occasions only Alcohol type: wine Patient Tobacco Use Status: Never used Tobacco e-Cigarette/Vaping Use: Never Used Second Hand Smoke Exposure: Yes service: No Current occupational status: retired Cognitive needs: Yes (cane) Hearing needs: Yes Vision needs: Yes Review of Systems Const All systems reviewed & are unremarkable except as noted in HPI and below Physical Exam Vital Signs: BMI result Body Mass Index 19.6 Const General: cooperative, healthy appearing and no acute distress Resp Effort & Inspection: normal respiratory effort and able to speak in complete sentences Cardio Rate: regular rate Peripheral pulses: Peripheral pulses 2+ throughout Skin Lesions: no lesions Rashes: no rashes Extrem Other: Right lower extremity able to perform straight leg raise with pain. No pain with internal or external rotation but is extremely limited from arthritis. Able to dorsiflex and plantar flex. Assessment & Plan Assessment & Plan (1) Lumbar radiculopathy, right: Code(s): M54.16 - Radiculopathy, lumbar region Category: Medical Plan Ms. Nance is a 79 year female who presents to the office today accompanied by her son-in-law for evaluation of right lower extremity pain accompanied by numbness and tingling. She reports that in December of this year she fell but the symptoms have been present for roughly 6 months. She reports pain is in her mid thigh she denies any groin pain. She feels as though the leg becomes numb from the thigh distally at times. She has tried Tylenol with no relief. On the office today, I discussed the case with Dr. De Anda who agrees with my assessment that her symptoms are likely stemming from her lower back. She does not have any groin pain nor groin pain with internal or external rotation. However, the patient does have severe osteoarthritis of the right hip on x-ray her symptoms do not align with this diagnosis alone. She will follow up with Dr. De Anda for further evaluation and treatment. X-rays of the right hip and pelvis which were obtained while in the office today and were reviewed by me, Diamond Rubio PA-C, revealed severe osteoarthritis right hip. Orders: Orders XR hip RT min 2V Today M25.559 - Pain in unspecified hip Coding Level of Care Code New Pt Level 4 (36089) Diagnoses Lumbar radiculopathy, right M54.16
[2025-02-27 10:05] VITALS: BMI 19.6
== END 2025-02-27 10:56 | disposition home or self-care (01) ==
LOC: HO.HOS 09:49
PROVIDERS: PCP Internal Medicine; Visit Provider Physician Assistant
DX: M54.16 Radiculopathy, lumbar region (principal); M16.11 Unilateral primary osteoarthritis, right hip
CPT/HCPCS: 99204

== ENCOUNTER → 2025-02-27 10:26 | Outpatient (BNV) | payer MEDICARE, SELFPAY | PROVIDERS: Visit Provider Radiology Diagnostic Radiology | DX: M16.51 Unilateral post-traumatic osteoarthritis, right hip (principal) | CPT/HCPCS: 72100; 73502 ==

== ENCOUNTER 2025-03-07 10:48 | Outpatient (REF) | payer MEDICARE, SELFPAY ==
--- NOTE | ~2025-03-07 | MM_ITS ---
EXAMINATION: DXA BONE DENSITY AXIAL HISTORY: Z78.0 - Asymptomatic menopausal state TECHNIQUE: [employer] Dual energy absorptiometry (DEXA) of the lumbar spine, total left hip, and femoral neck was performed. COMPARISON: Comparison is made with the prior examination dated 11/17/2017. FINDINGS: The bone mineral density of the lumbar spine is 0.963 with a T-score of -2.0, and a Z-score of 0.1. This is indicative of osteopenia. This represents a BMD change of -16.7% compared to the prior exam. This is statistically significant. The bone mineral density of the left total hip is 0.594 with a T-score of -3.3, and a Z-score of -1.2. This is indicative of osteoporosis. This represents a BMD change of -35.5% compared to the prior exam. This is statistically significant. The bone mineral density of the left femoral neck is 0.728 with a T-score of -2.2, and a Z-score of 0.0. This is indicative of osteopenia. This represents a BMD change of -17.6% compared to the prior exam. FRACTURE RISK: The FRAX index suggests a ten year probability of major osteoporotic fracture of 19.8%, and of hip fracture 7.0%. MM/XR DEXA axial skeleton IMPRESSION: Based on bone mineral density, and according to World Health Organization (WHO) criteria, the diagnosis is consistent with osteoporosis. All bone density values are in grams per centimeter squared (g/cm2). Statistically, 68% of repeat scans fall within 1 SD (+/- 0.010 g/cm2 for AP spine L1-L4) and 1 SD (+/- 0.012 g/cm2 for femur total) FRAX is a trademark of the [employer] [place] [facility] [employer] Disease, a World Health Organization (WHO) Collaborating Center. Electronically signed by: Woodrow Maria MD 03/07/2025 02:43 PM EDT
== END 2025-03-07 10:49 | disposition home or self-care (01) ==
LOC: HO.MAMMO 10:48
PROVIDERS: PCP Internal Medicine; Visit Provider Internal Medicine
DX: Z13.820 Encounter for screening for osteoporosis (principal); Z78.0 Asymptomatic menopausal state; M85.80 Other specified disorders of bone density and structure, unspecified site
CPT/HCPCS: 77080

== ENCOUNTER → 2025-03-07 11:00 | Outpatient (BNV) | payer MEDICARE, SELFPAY | PROVIDERS: PCP Internal Medicine; Visit Provider Radiology Diagnostic Radiology | DX: E28.39 Other primary ovarian failure (principal) | CPT/HCPCS: 77080 ==

== ENCOUNTER 2025-06-03 09:18 | Outpatient (REF) | payer MEDICARE, SELFPAY ==
--- OUTSIDE RECORDS SUMMARY | 2025-06-03 09:51 | XMS_ITS | Patient Health Record ---
[facility] [place] Address [address] [facility] [place] [address] Care Team Providers Care Care Technician Name Role Phone Clifford Bucio MD Primary Care Provider Nat estevez [place] Unavailable [phone] Allergies Allergen (clinical drug ingredient) Drug/Non Drug Allergy documented on EMR Reaction Allergy Type Onset Date Status Information temporarily unavailable Aspirin break out Drug Allergy Active Information temporarily unavailable Penicillin break out Drug Allergy Active Reason For Referral No Information Medications Medication SIG (Take, Route, Fr equency, Duration) Notes Start Date End Date Status Lisinopril Active Famotidine in NaCl A ctive amLODIPine Besylate Active Vitamin D Active LORazepam Active Simvastatin Active Letrozole Active Social History Tobacco Use: Social History Observation Description Date Details (start date - stop date) Never Smoker NA - NA Tobacco Use/Smoking Question Answer Notes Are you a: nonsmoker Alcohol Screen Question Answer Notes Did you have a drink contain ing alcohol in the past year? Yes How often did you have a dri nk containing alcohol in the past year? Monthly or less (1 point) How many drinks did you have on a typical day when you were drinking in the past year? 1 or 2 drinks (0 point) How often did you have 6 or more drinks on one occasion in the past year? Never (0 point) Points 1 Interpretation Negative Tobacco use other than smoking: Question Answer Notes Are you an other tobacco user? No Problems Problem Type SNOMED Code ICD Code Onset Dates Problem Status W/U Status Risk Notes Problem Localized, primary osteoarthritis of the ankle and/or foot (832734964) Primary osteoarthrit is, right ankle and foot (M19.071) Active confirmed Plan Of Treatment No Information Insurance Providers Payer Name Payer Address Payer Phone Subscriber Number Group Number Insured Name Patient Relationship to Insured Coverage Start Date Coverage End Date [employer] [place] [employer] [facility] [address] [place], [place] [address] [id number] [place] Nance Self - patient is the insured Medical (General) History Medical History History ICD Code Anxiety Cancer Measles Mumps Chicken pox Depression High blood pressure Surgical History Surgery Date(Month/Year) lumpectomy Twice 2013
--- OUTSIDE RECORDS SUMMARY | 2025-06-03 09:52 | XMS_ITS | Patient Health Record ---
Author Organization [facility] Address [address] [place] [address] Care Team Providers Care Regulatory Specialist Name Role Phone Clifford Bucio MD Primary Care Provider Woodrow Ordonez Unavailable [phone] Yue Vu Unavailable Unavailable Allergies Allergen (clinical drug ingredient) Drug/Non Drug Allergy documented on EMR Reaction Allergy Type Onset Date Status Penicillin Unknown Drug Allergy Active Reason For Referral No Information Medications Medication SIG (Take, Route, Frequency, Duration) Notes Start Date End Date Status Famotidine Active Vitamin D (Ergocalciferol) 72164 UNIT 1 capsule Orally Active LORazepam 0.5 MG 1 tablet as needed O rally Twice a day Active Simvastatin 20 MG 1 tablet in the even ing Orally Once a day Active Letrozole 2.5 MG 1 tablet Orally Once a day Active Lisinopril 40 MG 1 tablet Orally Once a day Active amLODIPine Besylate 10 MG 1 tablet Orall y Once a day Active Problems Problem Type SNOMED Code ICD Code Onset Dates Problem Status W/U Status Risk Notes Problem Gallstones (371849624) Gallstones (574.20) Active confirmed Problem Colon cancer screening (789812240) Colon cancer screening (V76.51) Active confirmed Problem Gastroesophageal reflux disease (797617076) GERD (gastroesophageal reflux disease) (530.81) Active confirmed Problem Diverticulitis of colon (805471460) Diverticulitis of colon (562.11) Active confirmed Problem Irritable bowel syndrome (32458338) Irritable bowel syndrome (IBS) (564.1) Active confirmed Plan Of Treatment No Information Insurance Providers Payer Name Payer Address Payer Phone Subscriber Number Group Number Insured Name Patient Relationship to Insured Coverage Start Date Coverage End Date [facility] [address] [facility] [place] [phone] [id number] DEMARIO EUCEDA Self - patient is the insured Medical (General) History Medical History History ICD Code Hypertension Hyperlipidemia Anxiety and Depression Denies IA,DM,CVA,Lung disease,renal dise ase Breast cancer--bilateral--claude th within the past 5 years--treated with lumpectomy and XRT Screening Colonoscopy [place] [address] Ruiz--neg. except for a hyperplastic polyp, diverticulosisi Diverticulitis in 03/2013-seen on CT-in [facility] for 2 days Gallstone noted on previous U/S Irritable bowel syndrome Surgical History Surgery Date(Month/Year) lumpectomy, left breast--for breast canc er as above lumpectomy, right breast-for breast canc er as above
[2025-06-03 10:21] LABS: MANUAL DIFF FLAG NO
[2025-06-03 10:35] LABS: Hematocrit 40.2 % (37.0-47.0); Hemoglobin 13.5 g/dl (12.0-16.0); Imm Gran Abs Auto 0.02 X10*3/uL (0.00-0.03); Imm Gran Pct Auto 0.3 % (0.0-0.4); Lymphocytes Absolute Auto 1.6 X10*3/uL (1.2-4.9); Mean Corpuscular HGB Conc 33.6 g/dl (31.0-35.0); Mean Corpuscular Hemoglobin 31.9 pg (27.0-33.0); Mean Corpuscular Volume 95.0 fL (80.0-98.0); NRBC Abs Auto 0.000 X10*3/uL (0.0-0.012); NRBC Pct Auto 0.0 /100WBC (0.0-0.2); Platelet Count 297 X10*3/uL (160-400); Red Blood Count 4.23 X10*6/uL (4.20-5.50); White Blood Count 7.0 X10*3/uL (4.8-10.8)
[2025-06-03 10:48] LABS: Hemoglobin A1C 113.2206 umol/L; Total Hemoglobin (HGBA1C) 3500.7732 umol/L
[2025-06-03 11:05] LABS: Alanine Aminotransferase 8 U/L (0-31); Albumin Level 4.6 g/dL (3.5-5.0); Alkaline Phosphatase 91 U/L (39-117); Anion Gap 14 (12-20); Aspartate Amino Transferase 19 U/L (5-31); Blood Urea Nitrogen 13 mg/dL (9-16); Calcium 9.9 mg/dL (8.4-10.2); Carbon Dioxide 26 mmol/L (22-29); Chloride 106 mmol/L (96-108); Cholesterol 165 mg/dL (<200); Estimated Glomerular Filt Rate > 60; HDL Cholesterol 63 mg/dL (>40); Potassium 3.3 mmol/L (3.3-5.1); Sodium 143 mmol/L (135-145); Total Protein 7.5 g/dL (6.5-8.0); Triglycerides 104 mg/dL (<150)
== END 2025-06-03 09:19 | disposition home or self-care (01) ==
LOC: HO.HMGCLDS 09:18
PROVIDERS: PCP Internal Medicine; Visit Provider Internal Medicine
DX: R73.01 Impaired fasting glucose (principal); D64.9 Anemia, unspecified; E78.00 Pure hypercholesterolemia, unspecified; E55.9 Vitamin D deficiency, unspecified
CPT/HCPCS: 36415; 80053; 80061; 82306; 83036; 84443; 85025

== ENCOUNTER 2025-06-13 10:25 | Outpatient (AMB) | payer MEDICARE, SELFPAY ==
--- OUTSIDE RECORDS SUMMARY | 2025-06-13 10:37 | XMS_ITS | Patient Health Record ---
Author Organization [facility] [place] Address [address] [place] [address] Care Team Providers Care Bioinformatics Support Specialist Name Role Phone Clifford Bucio MD Primary Care Provider Nat Solis Dorcas Unavailable [phone] Allergies Allergen (clinical drug ingredient) Drug/Non Drug Allergy documented on EMR Reaction Allergy Type Onset Date Status aspirin Aspirin break out Drug Allergy Active Penicillin break out Drug Allergy Active Reason [...] Problem Status W/U Status Risk Notes Problem Primary osteoarthritis , right ankle and foot (M19.071) Active confirmed Plan Of Treatment No Information Insurance Providers Payer Name Payer Address Payer Phone Subscriber Number Group Number Insured Name Patient Relationship to Insured Coverage Start Date Coverage End Date [employer] [place] [employer]vantage [address] [facility] [place], [place] [address] [id number] [place] Nance Self - patient is the insured Medical (General) History Medical History History ICD Code Anxiety Cancer Measles Mumps Chicken pox Depression High blood pressure Surgical History Surgery Date(Month/Year) lumpectomy Twice 2013
--- OUTSIDE RECORDS SUMMARY | 2025-06-13 10:37 | XMS_ITS | Patient Health Record ---
Author Organization [facility] Address [address] [place] [address] Care Team Providers Care Senior It Architect Name Role Phone Clifford Bucio MD Primary Care Provider Woodrow Ordonez Unavailable [phone] Yue Vu Unavailable Unavailable Allergies Allergen (clinical drug ingredient) Drug/Non Drug Allergy documented on EMR Reaction Allergy Type Onset Date Status Penicillin Unknown Drug Allergy Active Reason For Referral No Information Medications Medication SIG (Take, Route, Frequency, Duration) Notes Start Date End Date Status Famotidine Active Vitamin D (Ergocalciferol) 88871 UNIT 1 capsule Orally Active LORazepam 0.5 [...] Status W/U Status Risk Notes Problem Gallstones (717039148) Gallstones (574.20) Active confirmed Problem Colon cancer screening (196234243) Colon cancer screening (V76.51) Active confirmed Problem Gastroesophageal reflux disease (181663717) GERD (gastroesophageal reflux disease) (530.81) Active confirmed Problem Diverticulitis of colon (479572194) Diverticulitis of colon (562.11) Active confirmed Problem Irritable bowel syndrome (73248146) Irritable bowel syndrome (IBS) (564.1) Active confirmed Plan Of Treatment No Information Insurance Providers Payer Name Payer Address Payer Phone Subscriber Number Group Number Insured Name Patient Relationship to Insured Coverage Start Date Coverage End Date [facility] [address] [facility] [place] [phone] [id number] DEMARIO EUCEDA Self - patient is the insured Medical (General) History Medical History History ICD Code Hypertension Hyperlipidemia Anxiety and Depression Denies PA,DM,CVA,Lung disease,renal dise ase Breast cancer--bilateral--claude th within the past 5 years--treated with lumpectomy and XRT Screening [place]oscopy [place] [address] Ruiz--neg. except for a hyperplastic polyp, diverticulosisi Diverticulitis in 03/2013-seen on CT[facility]in [facility] for 2 days Gallstone noted on previous U/S Irritable bowel syndrome Surgical History Surgery Date(Month/Year) lumpectomy, left breast--for breast canc er as above lumpectomy, right breast-for breast canc er as above
[2025-06-13 10:38] VITALS: BP 120/64; PULSE 86; O2SAT 99; BMI 20.5
--- NOTE | 2025-06-13 10:38 | A.OFFPC_ITS ---
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 Accompanied by: Self / Same As Patient Allergies Penicillins Allergy (Mild, Verified 06/13/25 11:18) HIVES codeine Allergy (Unknown, Verified 06/13/25 11:18) nausea Medication List - Last Reconciled 06/13/25 by Clifford Bucio MD amlodipine 10 mg PO DAILY 90 days cholecalciferol (vitamin D3) 25 mcg PO DAILY 90 days clotrimazole 1% 1 appl topical BID 2 weeks famotidine 20 mg PO BID 90 days [LIGHTWEIGHT ROLLATOR As directed] lisinopril 40 mg PO DAILY 90 days lorazepam 0.5 mg PO TID PRN 30 days polyethylene glycol 3350 (Miralax) 17 grams PO DAILY psyllium husk (Metamucil) 0.4 grams PO DAILY 90 days sertraline 25 mg PO DAILY 90 days simethicone (Gas Relief (simethicone)) 125 mg PO ONCE PRN simvastatin 20 mg PO BEDTIME 90 days tramadol 50 mg PO TID PRN Tobacco use date assessed: 06/13/25 Fall risk assessment: 1 Fall in past year Last assessed Fall Risk: 06/13/25 Dental Screening Dental Screen Date: 06/13/25 Did you have a dental visit in the last 12 months?: No Did you have a dental problem in the last 6 months where you did not have access to dental care?: No Was dental information given to patient?: Patient has dentist HPI hypertension, hyperlipidemia, anxiety, OA HPI Details Patient comes in today for her follow up visit States that she feels okay She denies any headaches or dizziness Denies any chest pains, no SOB No nausea/vomiting, no abdominal pain No change in bowel habits noted She continues to experience increased pain in her right hip and on and off numbness in her right thigh - states that these have been bothering her since she fell back in December (2024) She has a follow up appointment with orthopedics next week and would like to know her x-rays done a couple of months ago came out She had her follow up labs done last week - to discuss her results [facility] Medical History (Updated 06/14/25 @ 09:38 by Clifford Bucio MD) Osteoporosis Osteopenia Hx of flexible sigmoidoscopy Breast cancer Overweight (BMI 25.0-29.9) Depression Anxiety Venous insufficiency of both lower extremities Nocturnal leg cramps Allergic rhinitis Constipation GERD without esophagitis Vitamin D deficiency Impaired fasting glucose Pure hypercholesterolemia Benign essential hypertension Surgical History History of esophagogastroduodenoscopy (EGD) H/O lumpectomy History of lumpectomy of right breast History of colonoscopy Family History Father Hypertension Stroke Mother Stroke Hypertension Social History Household Members: None Housing: Apartment Housing Other:: Independent living Alcohol intake: current Alcohol intake frequency: holidays/special occasions only Alcohol type: wine Patient Tobacco Use Status: Never used Tobacco e-Cigarette/Vaping Use: Never Used Second Hand Smoke Exposure: Yes service: No Current occupational status: retired Cognitive needs: Yes (cane) Hearing needs: Yes Vision needs: Yes Questionnaire PHQ-9 Over the last 2 weeks, how often have you been bothered by any of the following problems? 1. Little interest or pleasure in doing things: nearly every day 2. Feeling down, depressed, or hopeless: several days 3. Trouble falling or staying asleep, or sleeping too much: not at all 4. Feeling tired or having little energy: several days 5. Poor appetite or overeating: several days 6. Feeling bad about yourself - or that you are a failure or have let yourself or your family down: not at all 7. Trouble concentrating on things, such as reading the newspaper or watching television: not at all 8. Moving or speaking so slowly that other people could have noticed. Or the opposite - being so fidgety or restless that you have been moving around a lot more than usual: not at all 9. Thoughts that you would be better off or of hurting yourself in some way: not at all Total score: 6 Depression Screening Interpretation: Positive Depression Screening Follow-up: Existing condition and In treatment Depression Screening Done: Yes 32598 - PHQ-9 Billing: Yes Source: Developed by Drs. Woodrow Ortega, Kaitlyn Winters, Ihsan Novoa and colleagues, with an educational kirby from [employer]. Thrive Questionnaire Date Thrive assessed: 06/13/25 I am a: Patient What is your living situation today?: I have a steady place to live Within the past 12 months, did the food you bought not last and you didn't have the money to get more?: Never true Within the past 12 months, did you worry whether your food would run out before you got money to buy more?: Never true Do you have trouble paying for medicines?: No Do you have trouble getting transportation to medical appointments?: No Do you have trouble paying your heating and electricity bill?: No Do you have trouble taking care of your child, family member or friend?: No Do you have trouble with day-to-day activities such as bathing, preparing meals, shopping, managing finances, etc.?: No Are you currently unemployed and looking for a job?: Yes Are you interested in more education?: No Please select the resources that you would like help with: Food Currently or been in a relationship where the following occur: No concerns reported THRIVE Score: 0 AUDIT C Alcohol Use Questionnaire (AUDIT-C) 1. How often do you have a drink containing alcohol?: 2-4 times a month 2. How many drinks containing alcohol do you have on a typical day when you are drinking?: 1 or 2 3. How often do you have six or more drinks on one occasion?: Never Total Score: 2 Score Reviewed/Action Taken: Yes ANURADHA-7 AMB Questionnaire ANURADHA-7 Date ANURADHA - 7 assessed: 06/13/25 Feeling nervous, anxious, or on edge: 1 = Several days Not being able to stop or control worryin = Not at all Worrying too much about different things: 1 = Several days Trouble relaxin = Several days Being so restless that it is hard to sit still: 0 = Not at all Becoming easily annoyed or irritable: 0 = Not at all Feeling afraid as if something awful might happen: 1 = Several days Total ANURADHA-7 score (0-4 normal; 5-9 mild; 10-14 moderate; 15-21 severe): 4 Source: Developed by Drs. Woodrow Ortega, Kaitlyn Winters, Ihsan Novoa and colleagues, with an educational kirby from [employer]. Review of Systems Const Denies chills, Denies fatigue, Denies fever(s) and Denies headache(s) ENT Denies dysphagia, Denies dizziness, Denies otalgia, Denies headache(s), Denies neck pain, Denies odynophagia and Denies sore throat Card Denies chest pain, Denies palpitations and Denies dyspnea Resp Denies chest congestion, Denies cough and Denies dyspnea GI Reports abdominal pain (occasional cramping pain over the right lower abdomen), Reports constipation (on and off), Denies dysphagia, Denies heartburn, Denies diarrhea, Denies nausea, Denies odynophagia and Denies vomiting Denies nocturia, Denies dysuria, Reports urinary incontinence and Denies urinary urgency Musc Denies back pain, Reports arthralgias (in the right hip), Reports muscle weakness (over both legs at times) and Denies neck pain Skin/Breast Denies rash Neuro Denies dizziness and Denies headache(s) Psych Details: she has been prescribed Sertraline a few times in the past but patient keeps deciding NOT to take them when she gets home from her visit Reports anxiety (increased; chronic - worries incessantly over everything) Endo Denies fatigue and Denies palpitations Physical exam (Primary Care) Vital Signs: Last Vital Signs Pulse 86 06/13/25 10:38 BP 120/64 06/13/25 10:38 Pulse Ox 99 06/13/25 10:38 Oxygen Delivery Method Room Air 06/13/25 10:38 BMI result Body Mass Index 20.5 Tobacco/Smoking Status: Tobacco use Status Tobacco use date assessed 06/13/25 06/13/25 10:40 Patient Tobacco Use Status Never used Tobacco 06/13/25 10:40 e-Cigarette/Vaping Use Never Used 06/13/25 10:40 PHQ-9: PHQ-9 Score PHQ-9: Total score 6 06/14/25 02:57 Depression Screening Interpretation: Positive Depression Screening Follow-up: Existing condition and In treatment Thrive Assessment: Date of Thrive Assessment Date Thrive assessed 06/13/25 06/13/25 10:50 Currently or been in a relationship where the following occur: No concerns reported Const General: no acute distress, alert and anxious HENMT Ears: TM's normal bilaterally and EAC's normal Throat: Yes posterior oropharynx normal and Yes tonsils normal Neck Neck: Yes no lymphadenopathy and Yes supple Thyroid: Thyroid normal Lymphatic: no lymphadenopathy noted Resp Auscultation: clear to auscultation bilaterally, no rales and no wheezes Cardio Rate: regular rate Rhythm: regular rhythm Heart sounds: no murmurs GI Palpation (GI): Tenderness to palpation present (GI) (diffuse discomfort and mild tenderness on palpation) in the RUQ, no guarding, not rigid and No Rebound tenderness present General: Yes no CVA tenderness Back/Spine/Pelvis Back: no CVA tenderness Thoracic/Lumbar Spine: No lumbar spinal tenderness Sacroiliac joints: bilaterally nontender Skin Rashes: no rashes Extrem General: Yes no clubbing, cyanosis or edema Right lower extremity: hip/thigh Details: normal ROM; no tenderness Psych Affect: Anxious affect present Results Reviewed Results Reviewed: Laboratory Tests 06/03/25 09:22 WBC 7.0 Hgb 13.5 Hct 40.2 Plt Count 297 Sodium 143 Potassium 3.3 Creatinine 0.49 L Estimated GFR > 60 Fasting Glucose 118 H Hemoglobin A1c % 5.1 Calcium 9.9 AST 19 ALT 8 Triglycerides 104 Cholesterol 165 LDL Cholesterol, Calc 82 HDL Cholesterol 63 25-OH Vitamin D Total 50.9 TSH 0.96 Coding Level of Care Code Est Pt Level 4 (67885) Diagnoses Pure hypercholesterolemia E78.00 Benign essential hypertension I10 Impaired fasting glucose R73.01 Vitamin D deficiency E55.9 Osteoporosis without current pathological fracture, unspecified osteoporosis type M81.0 Osteoporosis type: unspecified Presence of current pathological fracture: without current pathological fracture GERD without esophagitis K21.9 Constipation, unspecified constipation type K59.00 Constipation type: unspecified constipation type Calculus of gallbladder without cholecystitis without obstruction K80.20 Cholelithiasis location: gallbladder Cholecystitis presence: without cholecystitis Biliary obstruction: without biliary obstruction Allergic rhinitis, unspecified seasonality, unspecified trigger J30.9 Allergic rhinitis trigger: unspecified Allergic rhinitis seasonality: unspecified Venous insufficiency of both lower extremities I87.2 History of breast cancer Z85.3 Pain of right lower extremity M79.604 Unsteady gait R26.81 Anxiety F41.9 Episode of recurrent major depressive disorder, unspecified depression episode severity F33.9 Depression Type: major depressive disorder Major depression recurrence: recurrent Active/Remission status: currently active Major depression episode severity: unspecified Bilateral hearing loss, unspecified hearing loss type H91.93 Hearing loss type: unspecified Laterality: bilateral Additional Codes PHQ-9 - 16200 - PHQ-9 Billing: Yes ([id number]) Assessment & Plan Assessment & Plan (1) Pure hypercholesterolemia: Code(s): E78.00 - Pure hypercholesterolemia, unspecified Category: Medical Plan: Results of her labs done last week reviewed and discussed with patient Reinforced low cholesterol diet Continue Simvastatin 20 mg QD Will recheck her labs and fasting lipids in 4 months for follow-up (2) Benign essential hypertension: Code(s): I10 - Essential (primary) hypertension Category: Medical Plan: Reinforced low-sodium diet -? goal is systolic BP of at least 140 mm or less Continue Lisinopril 40 mg QD and Amlodipine 10 mg QD Patient is reminded to continue monitoring her blood pressure regularly (3) Impaired fasting glucose: Code(s): R73.01 - Impaired fasting glucose Category: Medical Plan: Her FBS was again elevated at 118 mg/dl but her HgbA1c remained normal at 5.1% on her recent labs Reinforced low calorie/low carb diet; exercise as tolerated (4) Vitamin D deficiency: Code(s): E55.9 - Vitamin D deficiency, unspecified Category: Medical Plan: Continue Vitamin D3 1000 units QD (5) Osteoporosis: Code(s): M81.0 - Age-related osteoporosis without current pathological fracture Category: Medical Qualifiers: Osteoporosis type: unspecified Presence of current pathological fracture: without current pathological fracture Qualified Code(s): M81.0 - Age- related osteoporosis without current pathological fracture Plan: Her repeat BMD done in February 2025 revealed (+) significant decline in her overall BMD from previous, with the BMD in her left hip much worse than in other areas - her left total hip T-score is now at -3.3 and with a Z-score of -1.2, indicative with osteoporosis Fall precautions reinforced and patient is encouraged to continue taking her daily Calcium and Vitamin D supplements Have discussed with her potential treatment options, including oral bisphosphonates but due to her preexisting anxiety, she feels very hesitant about starting on additional medications and would like some time to consider this She is currently very limited in her mobility due to her right hip issues and has been mostly sedentary over the past few years, in part due to her age and declining physical issues so physical activity/exercises at this time would be impractical (6) GERD without esophagitis: Code(s): K21.9 - Gastro-esophageal reflux disease without esophagitis Category: Medical Plan: Dietary restrictions reinforced Continue Famotidine 20 mg BID as needed (7) Constipation: Code(s): K59.00 - Constipation, unspecified Category: Medical Qualifiers: Constipation type: unspecified constipation type Qualified Code(s): K59.00 - Constipation, unspecified Plan: She is again encouraged on increased oral fluids and dietary fiber Continue Senna 8.6 mg 1-2 tablets once a day as needed and Miralax 17 gm QD Patient states that she drinks prune juice first when she starts getting constipated and this helps keep her symptoms somewhat better controlled She had repeat colonoscopy done in April 2024 - colonoscopy came out normal although recent imaging studies revealed (+) gallstones Follow up with GI as scheduled (8) Cholelithiasis: Code(s): K80.20 - Calculus of gallbladder without cholecystitis without obstruction Category: Medical Qualifiers: Cholelithiasis location: gallbladder Cholecystitis presence: without cholecystitis Biliary obstruction: without biliary obstruction Qualified Code(s): K80.20 - Calculus of gallbladder without cholecystitis without obstruction Plan: This was seen incidentally on recent imaging studies and patient was referred by GI to surgery for further evaluation and consideration for laparoscopic cholecystectomy as she was advised that large gallstones pose a higher risk for malignancy It does not appear that patient has been scheduled yet to see surgery She was scheduled to see Dr. Haddad for GI follow up on 04/10/2025 but it appears that she did not keep that appointment (9) Allergic rhinitis: Code(s): J30.9 - Allergic rhinitis, unspecified Category: Medical Qualifiers: Allergic rhinitis trigger: unspecified Allergic rhinitis seasonality: unspecified Qualified Code(s): J30.9 - Allergic rhinitis, unspecified Plan: Continue Fluticasone 50 mcg nasal spray 1 spray into each nostril once a day (10) Venous insufficiency of both lower extremities: Code(s): I87.2 - Venous insufficiency (chronic) (peripheral) Category: Medical Plan: She is again encouraged to continue to keep her legs and feet elevated as often as she can to help minimize her pedal edema Patient also wears compression stockings, which she states help (11) History of breast cancer: Code(s): Z85.3 - Personal history of malignant neoplasm of breast Category: Medical Plan: 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 Ultrasound-guided core biopsy done on 10/04/2010 revealed (+) ductal carcinoma in situ, ER/MD positive She subsequently underwent left breast lumpectomy and left axillary sentinel node biopsy in October 2010 - pathology revealed DCIS without evidence of invasive tumor She received adjuvant radiotherapy and was on Tamoxifen from October 2010 to October 2013 She was diagnosed then with stage I right breast carcinoma in September 2013 - also noted on routine mammogram She underwent lumpectomy on 10/01/2014 which revealed a 0.7 cm invasive ductal carcinoma grade 1 with no lymphovascular invasion - stage was [id number]. She then underwent radiation therapy and was switched from Tamoxifen therapy to Letrozole beginning on 10/25/2013 and completed 5 years of letrozole in October 2019 She continues to follow up with oncology regularly for surveillance and goes for her yearly mammogram as scheduled (12) Pain of right lower extremity: Code(s): M79.604 - Pain in right leg Category: Medical Plan: Patient still has some pain and discomfort in her right leg, especially when she starts walking Exam done in the office reveals no appreciable tenderness over the right hip, lumbar spine, SI joints and right gluteal area X-rays of the pelvis, right hip and right thigh done back in October 2024 revealed (+) severe degenerative changes of the right hip and patellofemoral joint Repeat x-rays of the right hip done in February 2025 revealed similar findings - severe, end-stage arthritis of the right hip joint Follow up with orthopedics as scheduled - she has an upcoming appointment with orthopedics in a couple of weeks (13) Unsteady gait: Code(s): R26.81 - Unsteadiness on feet Category: Medical Plan: This is likely multifactorial, including due to her lower back and hip issues Patient feels that this has improved somewhat with physical therapy She is advised that we can refer her again to PT on an as-needed basis (14) Anxiety: Code(s): F41.9 - Anxiety disorder, unspecified Category: Medical Plan: Her anxiety appears to be somewhat better controlled at present compared to previous Continue Sertraline 25 mg Q AM and Lorazepam 0.5 mg 1 tablet 2 to 3 times a day as needed Follow-up with her counselor /therapist as scheduled (15) Depression: Code(s): F32.9 - Major depressive disorder, single episode, unspecified Category: Medical Qualifiers: Depression Type: major depressive disorder Major depression recurrence: recurrent Active/Remission status: currently active Major depression episode severity: unspecified Qualified Code(s): F33.9 - Major depressive disorder, recurrent, unspecified Plan: States that she has been doing well with this lately and she continues to follow-up with her counselor / therapist regularly She has been prescribed Escitalopram in the past but patient declined the Rx but is now on Sertraline Continue Sertraline 25 mg QD (16) Hearing loss: Code(s): H91.90 - Unspecified hearing loss, unspecified ear Category: Medical Qualifiers: Hearing loss type: unspecified Laterality: bilateral Qualified Code(s): H91.93 - Unspecified hearing loss, bilateral Plan: Patient is strongly encouraged to pursue getting her hearing aids KEE and start wearing them all the time as it is getting more time consuming and more difficult to have a conversation with her when she comes in for her appointment, especially with her severe anxiety and tendency to have to keep repeating things again and again to her Plan Follow up in 4 months Orders: Orders Comprehensive [place]. Panel Fast 4 Months E78.00 - Pure hypercholesterolemia, unspecified TSH reflex Free T4 4 Months E78.00 - Pure hypercholesterolemia, unspecified UA CC w/rflx Micro + Cult 4 Months R30.0 - Dysuria Vitamin D 25-OH Total 4 Months E55.9 - Vitamin D deficiency, unspecified Complete Blood Count Auto Diff 4 Months D64.9 - Anemia, unspecified Lipid Panel 4 Months E78.00 - Pure hypercholesterolemia, unspecified Medications: Refilled lisinopril 40 mg PO DAILY 90 tabs 1RF 90 days I10 - Essential (primary) hypertension amlodipine 10 mg PO DAILY 90 tabs 1RF 90 days I10 - Essential (primary) hypertension cholecalciferol (vitamin D3) 25 mcg PO DAILY 90 caps 3RF 90 days famotidine 20 mg PO BID 180 tabs 1RF 90 days lorazepam 0.5 mg PO TID PRN 90 tabs 1RF anxiety 30 days sertraline Take 1 tablet daily every morning for anxiety - has to be taken everyday for it to be effective 25 mg PO DAILY 90 tabs 1RF anxiety 90 days simvastatin 20 mg PO BEDTIME 90 tabs 1RF 90 days E78.00 - Pure hypercholesterolemia, unspecified
== END 2025-06-13 11:40 | disposition home or self-care (01) ==
LOC: HO.HMCH 10:26
PROVIDERS: PCP Internal Medicine; Visit Provider Internal Medicine
DX: E78.00 Pure hypercholesterolemia, unspecified (principal); I10 Essential (primary) hypertension; R73.01 Impaired fasting glucose; E55.9 Vitamin D deficiency, unspecified; M81.0 Age-related osteoporosis without current pathological fracture; K21.9 Gastro-esophageal reflux disease without esophagitis; K59.00 Constipation, unspecified; K80.20 Calculus of gallbladder without cholecystitis without obstruction; J30.9 Allergic rhinitis, unspecified; I87.2 Venous insufficiency (chronic) (peripheral); Z85.3 Personal history of malignant neoplasm of breast; M79.604 Pain in right leg; R26.81 Unsteadiness on feet; F41.9 Anxiety disorder, unspecified; F33.9 Major depressive disorder, recurrent, unspecified; H91.93 Unspecified hearing loss, bilateral

== ENCOUNTER → 2025-06-13 10:25 | Outpatient (BNVA) | payer MEDICARE, SELFPAY | PROVIDERS: PCP Internal Medicine; Visit Provider Internal Medicine | DX: E78.00 Pure hypercholesterolemia, unspecified (principal); I10 Essential (primary) hypertension; R73.01 Impaired fasting glucose; E55.9 Vitamin D deficiency, unspecified; M81.0 Age-related osteoporosis without current pathological fracture; K21.9 Gastro-esophageal reflux disease without esophagitis; K59.00 Constipation, unspecified; K80.20 Calculus of gallbladder without cholecystitis without obstruction; J30.9 Allergic rhinitis, unspecified; I87.2 Venous insufficiency (chronic) (peripheral); M79.604 Pain in right leg; R26.81 Unsteadiness on feet; Z85.3 Personal history of malignant neoplasm of breast; Z79.899 Other long term (current) drug therapy; Z13.31 Encounter for screening for depression; Z13.39 Encounter for screening examination for other mental health and behavioral disorders | CPT/HCPCS: 96127; 99212 ==

== ENCOUNTER 2025-07-11 11:28 | Outpatient (AMB) | payer MEDICARE, SELFPAY ==
--- NOTE | 2025-07-11 11:30 | A.OFFVIS_ITS ---
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 Patient was referred by 02/27/25 at their visit the patient stated that she had a fall 01/07 but was in pain for about 6 months. Patient was seen by physical therapy for gait issues and discharged 07/30/24. X Ray's of her Lumbar since 2022. At today's visit Patient states that for the past year she has had right sided pain that radiates down her leg. Patient's daughter states that due to the pain her mobility is limited, she has to use her walker for assistance. Patient states that from her right hip down to her foot has a numbness but no tinging. Allergies Penicillins Allergy (Mild, Verified 07/11/25 11:36) HIVES codeine Allergy (Unknown, Verified 07/11/25 11:36) nausea Medication List - Last Reconciled 07/11/25 by Manuela Cuello MD amlodipine 10 mg PO DAILY 90 days cholecalciferol (vitamin D3) 25 mcg PO DAILY 90 days famotidine 20 mg PO BID 90 days [LIGHTWEIGHT ROLLATOR As directed] lisinopril 40 mg PO DAILY 90 days lorazepam 0.5 mg PO TID PRN 30 days sertraline 25 mg PO DAILY 90 days simethicone (Gas Relief (simethicone)) 125 mg PO ONCE PRN simvastatin 20 mg PO BEDTIME 90 days tramadol 50 mg PO TID PRN HPI Comments Details: Accompanied by her daughter Maryjane. Right-sided back pain since a fall in December. She is complaining of numbness of the whole right leg. She has been dragging her foot. Per daughter, she was sedentary even prior to fall with some chronic bowel issues. But the pain has been much worse since the fall. Has not gotten better with conservative measures including physical therapy. She alternates Tylenol and ibuprofen. [facility] Medical History (Updated 07/11/25 @ 11:54 by Manuela Cuello MD) Osteoporosis Osteopenia Hx of flexible sigmoidoscopy Breast cancer Overweight (BMI 25.0-29.9) Depression Anxiety Venous insufficiency of both lower extremities Nocturnal leg cramps Allergic rhinitis Constipation GERD without esophagitis Vitamin D deficiency Impaired fasting glucose Pure hypercholesterolemia Benign essential hypertension Surgical History History of esophagogastroduodenoscopy (EGD) H/O lumpectomy History of lumpectomy of right breast History of colonoscopy Family History Father Hypertension Stroke Mother Stroke Hypertension Social History Household Members: None Housing: Apartment Housing Other:: Independent living Alcohol intake: current Alcohol intake frequency: holidays/special occasions only Alcohol type: wine Patient Tobacco Use Status: Never used Tobacco e-Cigarette/Vaping Use: Never Used Second Hand Smoke Exposure: Yes service: No Current occupational status: retired Cognitive needs: Yes (cane) Hearing needs: Yes Vision needs: Yes Review of Systems Const All systems reviewed & are unremarkable except as noted in HPI and below Physical Exam Exam Exam: Constitutional: Patient appears to be in no acute distress, well nourished and well developed. Patient was appropriately conversant and oriented. Good historian. Hard of hearing. MSK: [No] specific abnormalities found on inspection of the spine and all extremities. Most of the pain/tenderness was on right ischial and buttocks area. Denied tenderness in right GT. Slow and difficult to get up from seated position. Drags her right foot with walking. Needed walker. Neurological: Right dorsiflexion 4-/5. Vital Signs: BMI result Body Mass Index 20.8 Results Reviewed Results Reviewed: I independently reviewed the results of the following: Severe disc space narrowing on lumbar spine. Ordering Physician: Diamond Rubio PA-C Date of Service: 02/27/25 Procedure(s): XR lumbar spine 2-3V Accession Number(s): [id number] cc: Diamond Rubio PA-C~ EXAMINATION: XR LUMBOSACRAL SPINE CLINICAL INFORMATION: M54.50 - Low back pain, unspecified COMPARISON: None available. TECHNIQUE: Three views of the lumbosacral spine. FINDINGS: Osteopenia versus osteoporosis. Multilevel marginal osteophyte formation and endplate sclerosis with decreased intervertebral disc height. No acute cortical disruption. No gross malalignment. Vascular calcifications. Calcifications, round with popcorn morphology pattern in the pelvis. Abundant stool. XR/XR lumbar spine 2-3V IMPRESSION: Consider ankylosing spondylitis. Limited exam. Probable calcified uterine fibroids. Atherosclerosis disease, aorta. Electronically signed by: Jaspreet Scales MD 02/27/2025 01:20 PM EDT RP Ordering Physician: Diamond Rubio PA-C Date of Service: 02/27/25 Procedure(s): XR hip RT min 2V Accession Number(s): [id number] cc: Diamond Rubio PA-C~ EXAMINATION: XR HIP, RIGHT CLINICAL INFORMATION: M25.559 - Pain in unspecified hip COMPARISON: 10/16/2024 TECHNIQUE: AP pelvis, and 2 views of the right hip. FINDINGS: Diffuse osteopenia. No fracture, dislocation, or suspicious bone lesion. Severe, end-stage arthritis right hip joint with superior joint space loss, [id number] appearance, subchondral sclerosis and cystic changes of both the femoral head and acetabulum. There is smooth remodeling of the femoral head as well as the acetabulum. Mild degenerative arthritis in the left hip joint. Moderate degenerative arthritis in the lower lumbar spine and bilateral SI joints. There are diffuse vascular calcifications in the soft tissues. Popcorn type calcifications in the pelvis are consistent with degenerated uterine fibroid tumors. XR/XR hip RT min 2V IMPRESSION: 1. No acute bony abnormalities. 2. Diffuse osteopenia. 3. Severe, end-stage arthritis right hip joint. Electronically signed by: Nate Zacarias MD 02/28/2025 08:03 AM EDT RP I reviewed records from the following: Ortho Assessment & Plan Assessment & Plan (1) Lumbar radiculopathy: Code(s): M54.16 - Radiculopathy, lumbar region Category: Medical (2) Right foot drop: Code(s): M21.371 - Foot drop, right foot Category: Medical Plan Her symptoms are suggestive of right lumbar radiculopathy. Concern that she has beginning right footdrop, either from pain or weakness or both. Patient had undergone adequate conservative management without improvement of condition. It would be reasonable to obtain further imaging such as MRI. An MRI would help rule out any serious condition, guide treatment and assess prognosis for recovery. Specifically ruling out right L5-S1 or L4-5 disc herniation, we will order this as urgent. We briefly talked about possible epidural injection, and they were made aware that I will have to refer them to pain management for the injections. Assessment and plan discussed with patient, and patient was agreeable. All questions were answered thoroughly. Manuela Cuello MD, JOANNE Board Certified, [place] Board [employer] and Rehabilitation (ABPMR) Board Certified, [place] Board [employer] Electrodiagnostic [employer] (ABEM) Orders: Orders MR lumbar spine wo con Today M21.371 - Foot drop, right foot, M54.16 - Radiculopathy, lumbar region Coding Level of Care Code New Pt Level 4 (97223) Diagnoses Lumbar radiculopathy M54.16 Right foot drop M21.371
[2025-07-11 11:36] VITALS: BMI 20.8
--- OUTSIDE RECORDS SUMMARY | 2025-07-11 12:30 | XMS_ITS | Patient Health Record ---
Author Organization [facility] Address [address] [place] [address] Care Team Providers Care Soa Integration Architect Name Role Phone Clifford Bucio MD Primary Care Provider Woodrow Ordonez Unavailable [phone] Yue Vu Unavailable Unavailable Allergies Allergen (clinical drug ingredient) Drug/Non Drug Allergy documented on EMR Reaction Allergy Type Onset Date Status Penicillin Unknown Drug Allergy Active Reason For Referral No Information Medications Medication SIG (Take, Route, Frequency, Duration) Notes Start Date End Date Status Famotidine Active Vitamin D (Ergocalciferol) 57895 UNIT 1 capsule Orally Active LORazepam 0.5 [...] Status W/U Status Risk Notes Problem Gallstones (379991158) Gallstones (574.20) Active confirmed Problem Colon cancer screening (595268460) Colon cancer screening (V76.51) Active confirmed Problem Gastroesophageal reflux disease (400234991) GERD (gastroesophageal reflux disease) (530.81) Active confirmed Problem Diverticulitis of colon (983429945) Diverticulitis of colon (562.11) Active confirmed Problem Irritable bowel syndrome (64834403) Irritable bowel syndrome (IBS) (564.1) Active confirmed Plan Of Treatment No Information Insurance Providers Payer Name Payer Address Payer Phone Subscriber Number Group Number Insured Name Patient Relationship to Insured Coverage Start Date Coverage End Date [facility] [address] [facility] [place] [phone] [id number] DEMARIO EUCEDA Self - patient is the insured Medical (General) History Medical History History ICD Code Hypertension Hyperlipidemia Anxiety and Depression Denies OR,DM,CVA,Lung disease,renal dise ase Breast cancer--bilateral--claude th within the past 5 years--treated with lumpectomy and XRT Screening Colonoscopy [place] [address] Ruiz--neg. except for a hyperplastic polyp, diverticulosisi Diverticulitis in 03/2013-seen on CT-in [facility] for 2 days Gallstone noted on previous U/S Irritable bowel syndrome Surgical History Surgery Date(Month/Year) lumpectomy, left breast--for breast canc er as above lumpectomy, right breast-for breast canc er as above
--- OUTSIDE RECORDS SUMMARY | 2025-07-11 12:30 | XMS_ITS | Patient Health Record ---
[facility] [place] Address [address] [facility] [place] [address] Care Team Providers Care Grocery Store Associate Name Role Phone Clifford Bucio MD Primary Care Provider Nat Solis Dorcas Unavailable [phone] Allergies Allergen (clinical drug ingredient) Drug/Non Drug [...] Medicare Advantage [address] [facility] [place] [place] [id number] [place] Nance Self - patient is the insured Medical (General) History Medical History History ICD Code Anxiety Cancer Measles Mumps Chicken pox Depression High blood pressure Surgical History Surgery Date(Month/Year) lumpectomy Twice 2013
== END 2025-07-11 12:01 | disposition home or self-care (01) ==
LOC: HO.HOS 11:29
PROVIDERS: PCP Internal Medicine; Visit Provider Physical Medicine & Rehabilitation
DX: M54.16 Radiculopathy, lumbar region (principal); M21.371 Foot drop, right foot
CPT/HCPCS: 99204

== ENCOUNTER → 2025-07-11 11:28 | Outpatient (BNVA) | payer MEDICARE, SELFPAY | PROVIDERS: PCP Internal Medicine; Visit Provider Physical Medicine & Rehabilitation | DX: M54.16 Radiculopathy, lumbar region (principal); M21.371 Foot drop, right foot; M25.551 Pain in right hip | CPT/HCPCS: 99202 ==

== ENCOUNTER → 2025-07-30 09:43 | Outpatient (BNV) | payer MEDICARE, SELFPAY | PROVIDERS: PCP Internal Medicine; Visit Provider Radiology Diagnostic Radiology | DX: M48.062 Spinal stenosis, lumbar region with neurogenic claudication (principal) | CPT/HCPCS: 72148 ==

== ENCOUNTER 2025-07-30 09:44 | Outpatient (REF) | payer MEDICARE, SELFPAY ==
--- NOTE | ~2025-07-30 | MR_ITS ---
EXAMINATION: MR LUMBAR SPINE WITHOUT CONTRAST CLINICAL INFORMATION: M54.16. Radiculopathy, lumbar region. COMPARISON: None available. TECHNIQUE: MRI of the lumbar spine was obtained using routine sequences without contrast. FINDINGS: Last rib-bearing vertebra labeled T12. Levoconvex curvature apex at L1-2. Grade 1 anterolisthesis L3-4 and L4-5. Grade 1 retrolisthesis, T12-L1 and L1-2. Bone marrow inhomogeneity. No bone marrow STIR signal abnormality. Multilevel marginal osteophyte formation and disc desiccation, pronounced at L4-5 and L5-S1 and T12-L1. Conus medullaris ends at pedicle of L1 with normal signal. T11-12: Bilateral facet joint hypertrophy as well as ligamentum flavum. No central spinal canal or neuroforamina stenosis. T12-L1: Broad-based disc bulging. Facet joint and ligamentum flavum hypertrophy. Reduced AP diameter of the thecal sac. Bilateral neuroforamina stenosis likely encroaching the exiting nerve roots. L1-2: Broad-based disc bulging. Facet joint and ligamentum flavum hypertrophy. Reduced AP diameter of the thecal sac. Bilateral neuroforamina narrowing. L2-3: Broad-based disc bulging. Facet joint and ligamentum flavum hypertrophy. Reduced AP diameter of the thecal sac and neuroforamina likely encroaching the neural elements. L3-4: Broad-based disc bulging. Facet joint and ligamentum flavum hypertrophy. Reduced AP diameter of the thecal sac and bilateral neuroforamina narrowing likely encroaching the neural elements. L4-5: Broad-based disc bulging. Facet joint and ligamentum flavum hypertrophy. CSF effacement of the thecal sac and bilateral neuroforamina stenosis encroaching, likely compressing the neural elements. L5-S1: Broad-based disc bulging. Facet joint hypertrophy. No gross central spinal canal stenosis. Bilateral, left greater than the right side neuroforamina narrowing. No prevertebral compartment hematoma, mass or fluid collection. There are multiple, large, at least 3 cm hypointense T2 signal abnormality lesions within the lumen of the gallbladder. The common bile duct measures 6 mm. Hyperintense T2 cystic lesions in the kidneys. There is a 3 mm fluid signal characteristic lesion in the tail of pancreas. MR/MR lumbar spine wo con IMPRESSION: Multilevel spondylosis without acute fracture. Central spinal canal and bilateral neuroforamina stenosis on a multifactorial basis likely compressing the neural elements at L4-5 and to a lesser extent L3-4, L2-3. Osteopenia versus osteoporosis. Cholelithiasis. Electronically signed by: Jaspreet Scales MD 07/30/2025 11:22 AM EDT
--- OUTSIDE RECORDS SUMMARY | 2025-07-30 11:36 | XMS_ITS | Patient Health Record ---
Author Organization [facility] Address [address] [place] [address] Care Team Providers Care Cardiac Technologist Name Role Phone Clifford Bucio MD Primary Care Provider Woodrow Ordonez Unavailable [phone] Yue Vu Unavailable Unavailable Allergies Allergen (clinical drug ingredient) Drug/Non Drug Allergy documented on EMR Reaction Allergy Type Onset Date Status Penicillin Unknown Drug Allergy Active Reason For Referral No Information Medications Medication SIG (Take, Route, Frequency, Duration) Notes Start Date End Date Status Famotidine Active Vitamin D (Ergocalciferol) 97841 UNIT 1 capsule Orally Active LORazepam 0.5 [...] Status W/U Status Risk Notes Problem Gallstones (607162737) Gallstones (574.20) Active confirmed Problem Colon cancer screening (231793318) Colon cancer screening (V76.51) Active confirmed Problem Gastroesophageal reflux disease (361431226) GERD (gastroesophageal reflux disease) (530.81) Active confirmed Problem Diverticulitis of colon (820035505) Diverticulitis of colon (562.11) Active confirmed Problem Irritable bowel syndrome (54791097) Irritable bowel syndrome (IBS) (564.1) Active confirmed Plan Of Treatment No Information Insurance Providers Payer Name Payer Address Payer Phone Subscriber Number Group Number Insured Name Patient Relationship to Insured Coverage Start Date Coverage End Date [facility] [address] [facility] [place] [phone] [id number] DEMARIO EUCEDA Self - patient is the insured Medical (General) History Medical History History ICD Code Hypertension Hyperlipidemia Anxiety and Depression Denies [place],DM,CVA,Lung disease,renal dise ase Breast cancer--bilateral--claude th within the past 5 years--treated with lumpectomy and XRT Screening [place]oscopy [place] [address] Ruiz--neg. except for a hyperplastic polyp, diverticulosisi Diverticulitis in 03/2013-seen on CT-in [facility] for 2 days Gallstone noted on previous U/S Irritable bowel syndrome Surgical History Surgery Date(Month/Year) lumpectomy, left breast--for breast canc er as above lumpectomy, right breast-for breast canc er as above
--- OUTSIDE RECORDS SUMMARY | 2025-07-30 11:36 | XMS_ITS | Patient Health Record ---
[facility] Organization [facility] Address [address] [place] [address] Care Team Providers Care Rheumatologist Name Role Phone Clifford Bucio MD Primary Care Provider Nat SolisBrie Unavailable [phone] Allergies Allergen (clinical drug ingredient) Drug/Non Drug [...] primary osteoarthritis of the ankle and/or foot (497484734) Primary osteoarthrit is, right ankle and foot (M19.071) Active confirmed Plan Of Treatment No Information Insurance Providers Payer Name Payer Address Payer Phone Subscriber Number Group Number Insured Name Patient Relationship to Insured Coverage Start Date Coverage End Date [facility] [place] Medicare Advantage [facility] [address] [place] [address] [id number] [place] Nance Self - patient is the insured Medical (General) History Medical History History ICD Code Anxiety Cancer Measles Mumps Chicken pox Depression High blood pressure Surgical History Surgery Date(Month/Year) lumpectomy Twice 2013
== END 2025-07-30 09:45 | disposition home or self-care (01) ==
LOC: HO.MRI 09:44
PROVIDERS: PCP Internal Medicine; Visit Provider Physical Medicine & Rehabilitation
DX: M54.16 Radiculopathy, lumbar region (principal); M21.371 Foot drop, right foot
CPT/HCPCS: 72148

== ENCOUNTER 2025-08-21 10:30 | Outpatient (AMB) | payer MEDICARE, SELFPAY ==
--- NOTE | 2025-08-21 10:58 | A.OFFVIS_ITS ---
Intake Visit Reasons: Lumbar Spine MRI Intake Note: Virginia is a 79 year old female who presents today as a MRI Review of her lumbar spine, 07/30/25. Patient states that the right lower back pain is still radiaiting into the right hip and down the leg. She states that she feels that her right leg feels swollen since last visit. She states that no falls or injury's but since last visit she almost had a few falls, but caught herself . Allergies Penicillins Allergy (Mild, Verified 08/21/25 11:03) HIVES codeine Allergy (Unknown, Verified 08/21/25 11:03) nausea Medication List - Last Reconciled 08/21/25 by Manuela Cuello MD amlodipine 10 mg PO DAILY 90 days cholecalciferol (vitamin D3) 25 mcg PO DAILY 90 days famotidine 20 mg PO BID 90 days [LIGHTWEIGHT ROLLATOR As directed] lisinopril 40 mg PO DAILY 90 days lorazepam 0.5 mg PO TID PRN 30 days sertraline 25 mg PO DAILY 90 days simethicone (Gas Relief (simethicone)) 125 mg PO ONCE PRN simvastatin 20 mg PO BEDTIME 90 days tramadol 50 mg PO TID PRN HPI Comments Details: Right-sided back pain since a fall in December. She is complaining of numbness of the whole right leg. She has been dragging her foot. Per daughter, she was sedentary even prior to fall with some chronic bowel issues. But the pain has been much worse since the fall. Has not gotten better with conservative measures including physical therapy. She alternates Tylenol and ibuprofen. MRI done, see below. [facility] Medical History (Updated 08/21/25 @ 11:14 by Manuela Cuello MD) Osteoporosis Osteopenia Hx of flexible sigmoidoscopy Breast cancer Overweight (BMI 25.0-29.9) Depression Anxiety Venous insufficiency of both lower extremities Nocturnal leg cramps Allergic rhinitis Constipation GERD without esophagitis Vitamin D deficiency Impaired fasting glucose Pure hypercholesterolemia Benign essential hypertension Surgical History History of esophagogastroduodenoscopy (EGD) H/O lumpectomy History of lumpectomy of right breast History of colonoscopy Family History Father Hypertension Stroke Mother Stroke Hypertension Social History Household Members: None Housing: Apartment Housing Other:: Independent living Alcohol intake: current Alcohol intake frequency: holidays/special occasions on ly Alcohol type: wine Patient Tobacco Use Status: Never used Tobacco e-Cigarette/Vaping Use: Never Used Second Hand Smoke Exposure: Yes service: No Current occupational status: retired Cognitive needs: Yes (cane) Hearing needs: Yes Vision needs: Yes Physical Exam Exam Exam: Constitutional: Patient appears to be in no acute distress, well nourished and well developed. Patient was appropriately conversant and oriented. Anxious, became teary eyed at some point. Hard of hearing. MSK: No specific abnormalities found on inspection of the spine and all extremities. Most of the pain/tenderness was on right ischial and buttocks area. Denied tenderness in right GT. Slow and difficult to get up from seated position. Drags her right foot with walking. Needed walker. Bilateral ankle edema. Neurological: Right dorsiflexion 4-/5. Results Reviewed Results Reviewed: Ordering Physician: Manuela De Anda Date of Service: 07/30/25 Procedure(s): MR lumbar spine wo con Accession Number(s): [id number] cc: Clifford Bucio MD; Manuela De Anda~ Reason for Exam: M54.16 - Radiculopathy, lumbar region EXAMINATION: MR LUMBAR SPINE WITHOUT CONTRAST CLINICAL INFORMATION: M54.16. Radiculopathy, lumbar region. COMPARISON: None available. TECHNIQUE: MRI of the lumbar spine was obtained using routine sequences without contrast. FINDINGS: Last rib-bearing vertebra labeled T12. Levoconvex curvature apex at L1-2. Grade 1 anterolisthesis L3-4 and L4-5. Grade 1 retrolisthesis, T12-L1 and L1-2. Bone marrow inhomogeneity. No bone marrow STIR signal abnormality. Multilevel marginal osteophyte formation and disc desiccation, pronounced at L4-5 and L5-S1 and T12-L1. Conus medullaris ends at pedicle of L1 with normal signal. T11-12: Bilateral facet joint hypertrophy as well as ligamentum flavum. No central spinal canal or neuroforamina stenosis. T12-L1: Broad-based disc bulging. Facet joint and ligamentum flavum hypertrophy. Reduced AP diameter of the thecal sac. Bilateral neuroforamina stenosis likely encroaching the exiting nerve roots. L1-2: Broad-based disc bulging. Facet joint and ligamentum flavum hypertrophy. Reduced AP diameter of the thecal sac. Bilateral neuroforamina narrowing. L2-3: Broad-based disc bulging. Facet joint and ligamentum flavum hypertrophy. Reduced AP diameter of the thecal sac and neuroforamina likely encroaching the neural elements. L3-4: Broad-based disc bulging. Facet joint and ligamentum flavum hypertrophy. Reduced AP diameter of the thecal sac and bilateral neuroforamina narrowing likely encroaching the neural elements. L4-5: Broad-based disc bulging. Facet joint and ligamentum flavum hypertrophy. CSF effacement of the thecal sac and bilateral neuroforamina stenosis encroaching, likely compressing the neural elements. L5-S1: Broad-based disc bulging. Facet joint hypertrophy. No gross central spinal canal stenosis. Bilateral, left greater than the right side neuroforamina narrowing. No prevertebral compartment hematoma, mass or fluid collection. There are multiple, large, at least 3 cm hypointense T2 signal abnormality lesions within the lumen of the gallbladder. The common bile duct measures 6 mm. Hyperintense T2 cystic lesions in the kidneys. There is a 3 mm fluid signal characteristic lesion in the tail of pancreas. MR/MR lumbar spine wo con IMPRESSION: Multilevel spondylosis without acute fracture. Central spinal canal and bilateral neuroforamina stenosis on a multifactorial basis likely compressing the neural elements at L4-5 and to a lesser extent L3-4, L2-3. Osteopenia versus osteoporosis. Cholelithiasis. Electronically signed by: Jaspreet Scales MD 07/30/2025 11:22 AM EDT Assessment & Plan Assessment & Plan (1) Lumbar radiculopathy, right: Code(s): M54.16 - Radiculopathy, lumbar region Category: Medical (2) Right foot drop: Code(s): M21.371 - Foot drop, right foot Category: Medical (3) Lumbar disc herniation with radiculopathy: Code(s): M51.16 - Intervertebral disc disorders with radiculopathy, lumbar region Category: Medical Plan We looked at lumbar MRI images together. Discussed results with patient, with help of son-in-law. Suspect symptoms in the right leg is from the L4-5 and L5- S1 disc bulge, possibly compressing the nerve. She has a chronic right footdrop. I am unable to tell how long she has had this disc herniation or if it is from the recent fall. Suggested consultation with neuro spine, although low likelihood they would offer surgery. She became very anxious with the idea of surgery though. She would rather have injection done. Discussed that I will refer her to pain management for on L4-5 or L5-S1 interlaminar epidural injection. Explained that this needs to be done under fluoroscopic guidance. Advised to follow up with PCP for incidental findings on MRI. Assessment and plan discussed with patient, and patient was agreeable. All questions were answered thoroughly. Manuela Cuello MD, JOANNE Board Certified, [place] [employer] and [employer] (ABPMR) Board Certified, [place] [employer] Electro[employer] (ABEM) Orders: Referrals Pain Management Referral M21.371 - Foot drop, right foot, M51.16 - Inte rvertebral disc disorders with radiculopathy, lumbar region, M54.16 - Radiculopathy, lumbar region Neurosurgery Referral M21.371 - Foot drop, right foot, M51.16 - Intervertebral disc disorders with radiculopathy, lumbar region, M54.16 - Radiculopathy, lumbar region Coding Level of Care Code Est Pt Level 4 (76260) Diagnoses Lumbar radiculopathy, right M54.16 Right foot drop M21.371 Lumbar disc herniation with radiculopathy M51.16
== END 2025-08-21 11:39 | disposition home or self-care (01) ==
LOC: HO.HOS 10:31
PROVIDERS: PCP Internal Medicine; Visit Provider Physical Medicine & Rehabilitation
DX: M54.16 Radiculopathy, lumbar region (principal); M21.371 Foot drop, right foot; M51.16 Intervertebral disc disorders with radiculopathy, lumbar region
CPT/HCPCS: 99214

== ENCOUNTER → 2025-08-21 10:30 | Outpatient (BNVA) | payer MEDICARE, SELFPAY | PROVIDERS: PCP Internal Medicine; Visit Provider Physical Medicine & Rehabilitation | DX: M51.16 Intervertebral disc disorders with radiculopathy, lumbar region (principal); M21.371 Foot drop, right foot | CPT/HCPCS: 99212 ==

== ENCOUNTER 2025-09-30 06:23 | Outpatient (REF) | payer MEDICARE, SELFPAY | END 2025-09-30 06:24 | disposition home or self-care (01) | LOC: CF 06:23 | PROVIDERS: Visit Provider Anesthesiology | DX: Z13.89 Encounter for screening for other disorder (principal) | CPT/HCPCS: J2003; J3301; Q9967 ==

== ENCOUNTER 2025-10-13 13:20 | Outpatient (REF) | payer MEDICARE, SELFPAY ==
[2025-10-13 16:10] LABS: MANUAL DIFF FLAG NO
[2025-10-13 16:15] LABS: Appearance Urine Cloudy; Glucose Urine UA Negative (Negative); PH 5.5 (5.0-9.0); Specific Gravity - Urine 1.020 (1.005-1.025); UMIC TRIGGER UACC YES
[2025-10-13 16:30] LABS: Hematocrit 41.7 % (37.0-47.0); Hemoglobin 13.8 g/dl (12.0-16.0); Imm Gran Abs Auto 0.03 X10*3/uL (0.00-0.03); Imm Gran Pct Auto 0.3 % (0.0-0.4); Lymphocytes Absolute Auto 1.2 X10*3/uL (1.2-4.9); Mean Corpuscular HGB Conc 33.1 g/dl (31.0-35.0); Mean Corpuscular Hemoglobin 31.9 pg (27.0-33.0); Mean Corpuscular Volume 96.5 fL (80.0-98.0); NRBC Abs Auto 0.000 X10*3/uL (0.0-0.012); NRBC Pct Auto 0.0 /100WBC (0.0-0.2); Platelet Count 355 X10*3/uL (160-400); Red Blood Count 4.32 X10*6/uL (4.20-5.50); White Blood Count 8.9 X10*3/uL (4.8-10.8)
[2025-10-13 16:57] LABS: Alanine Aminotransferase 21 U/L (0-31); Albumin Level 4.9 g/dL (3.5-5.0); Alkaline Phosphatase 96 U/L (39-117); Anion Gap 12 (12-20); Aspartate Amino Transferase 29 U/L (5-31); Blood Urea Nitrogen 16 mg/dL (9-16); Calcium 10.4 mg/dL (8.4-10.2); Carbon Dioxide 27 mmol/L (22-29); Chloride 104 mmol/L (96-108); Cholesterol 174 mg/dL (<200); Estimated Glomerular Filt Rate > 60; HDL Cholesterol 65 mg/dL (>40); Potassium 3.9 mmol/L (3.3-5.1); Sodium 139 mmol/L (135-145); Total Protein 7.8 g/dL (6.5-8.0); Triglycerides 92 mg/dL (<150)
== END 2025-10-13 13:21 | disposition home or self-care (01) ==
LOC: HO.HMGCLDS 13:20
PROVIDERS: PCP Internal Medicine; Visit Provider Internal Medicine
DX: E78.00 Pure hypercholesterolemia, unspecified (principal); E55.9 Vitamin D deficiency, unspecified; D64.9 Anemia, unspecified
CPT/HCPCS: 36415; 80053; 80061; 81001; 82306; 84443; 85025

== ENCOUNTER 2025-10-16 15:22 | Outpatient (AMB) | payer MEDICARE, SELFPAY ==
--- NOTE | 2025-10-16 15:25 | A.OFFVIS_ITS ---
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 She reports that she does not know what caused the problem. She reports pain in the area 8 to 07/23. However her past medical history significant for a fall in December after which she started to experience right-sided back pain. She reports pain only in with activities. When she is resting the pain is subsiding. She reports that physical therapy improved her pain minimally to moderately. She stated that she has a foot drop on the right, she does not remember when the foot drop started. She was examined by our colleague Dr. Adilson Gerardo who after evaluating the MRI which she had done at [facility] decided to send patient to us to perform therapeutic interlaminar epidural steroid injection. However when patient came to the operating room in injections center she was unable to lie down on the operating table and the procedure decided to be rescheduled in the operating room under sedation were there is more help available to help this patient. She will be scheduled for 11/14/2025 for the same injection. Right-sided back pain since a fall in December. She is complaining of numbness of the whole right leg. She has been dragging her foot. Per daughter, she was sedentary even prior to fall with some chronic bowel issues. But the pain has been much worse since the fall. Has not gotten better with conservative measures including physical therapy. She alternates Tylenol and ibuprofen. MRI done, see below. [facility] Medical History Osteoporosis Osteopenia Hx of flexible sigmoidoscopy Breast cancer Overweight (BMI 25.0-29.9) Depression Anxiety Venous insufficiency of both lower extremities Nocturnal leg cramps Allergic rhinitis Constipation GERD without esophagitis Vitamin D deficiency Impaired fasting glucose Pure hypercholesterolemia Benign essential hypertension Surgical History History of esophagogastroduodenoscopy (EGD) H/O lumpectomy History of lumpectomy of right breast History of colonoscopy Family History Father Hypertension Stroke Mother Stroke Hypertension Social History Household Members: None Housing: Apartment Housing Other:: Independent living Alcohol intake: current Alcohol intake frequency: holidays/special occasions only Alcohol type: wine Patient Tobacco Use Status: Never used Tobacco e-Cigarette/Vaping Use: Never Used Second Hand Smoke Exposure: Yes service: No Current occupational status: retired Cognitive needs: Yes (cane) Hearing needs: Yes Vision needs: Yes Review of Systems ENT Reports Normal hearing present Neuro Reports Normal hearing present, Denies Abnormal speech present, Denies confusion and Denies Sensory deficit (Neuro) Psych Denies confusion Physical Exam Vital Signs: Last Vital Signs Pulse 93 10/16/25 15:30 Resp 16 10/16/25 15:30 BP 162/70 H 10/16/25 15:30 Pulse Ox 98 10/16/25 15:30 Oxygen Delivery Method Room Air 10/16/25 15:30 BMI result Body Mass Index 18.3 Const General: no acute distress; No confusion Nutritional Appearance: obese morbidly obese Orientation/consciousness: patient oriented x3 and No confusion Eyes General: appearance normal, both eyes and all related structures Pupils: Equal, round and reactive pupils present EOM: EOMs intact bilaterally Neck Neck: Yes full ROM Chest Chest palpation & inspection: normal inspection of the chest Resp Effort & Inspection: normal respiratory effort, able to speak in complete sentences, normal respiratory pattern, no audible wheezes and no cough Cardio Jugular venous distension: no JVD GI Inspection: Yes normal to inspection Back/Spine/Pelvis Other: No specific abnormalities found on inspection of the spine and all extremities. Most of the pain/tenderness was on right ischial and buttocks area. Denied tenderness in right GT. Slow and difficult to get up from seated position. Drags her right foot with walking. Needed walker. Neuro General: patient oriented x3, gait normal and No confusion Cranial nerves: Yes CN's II-XII intact bilaterally, Yes Equal, round and reactive pupils present, Yes Normal hearing present and Yes Ability to bilaterally elevate shoulders present Speech: No Abnormal speech present Gait exam (Neuro): Normal gait present Motor exam (neuro): 5/5 motor strength present throughout Sensory Exam: No Sensory deficit (Neuro) Extrem General: No pedal edema Psych Speech and movement: Normal speech and movement present Affect: normal affect Attitude: cooperative Thought process: Normal thought process present Thought content: Normal thought content present Insight: Good insight present (Psych) Judgement: Good judgement present (Psych) Results Reviewed Results Reviewed: MR LUMBAR SPINE WITHOUT CONTRAST CLINICAL INFORMATION: M54.16. Radiculopathy, lumbar region. COMPARISON: None available. TECHNIQUE: MRI of the lumbar spine was obtained using routine sequences without contrast. FINDINGS: Last rib-bearing vertebra labeled T12. Levoconvex curvature apex at L1-2. Grade 1 anterolisthesis L3-4 and L4-5. Grade 1 retrolisthesis, T12-L1 and L1-2. Bone marrow inhomogeneity. No bone marrow STIR signal abnormality. Multilevel marginal osteophyte formation and disc desiccation, pronounced at L4-5 and L5-S1 and T12-L1. Conus medullaris ends at pedicle of L1 with normal signal. T11-12: Bilateral facet joint hypertrophy as well as ligamentum flavum. No central spinal canal or neuroforamina stenosis. T12-L1: Broad-based disc bulging. Facet joint and ligamentum flavum hypertrophy. Reduced AP diameter of the thecal sac. Bilateral neuroforamina stenosis likely encroaching the exiting nerve roots. L1-2: Broad-based disc bulging. Facet joint and ligamentum flavum hypertrophy. Reduced AP diameter of the thecal sac. Bilateral neuroforamina narrowing. L2-3: Broad-based disc bulging. Facet joint and ligamentum flavum hypertrophy. Reduced AP diameter of the thecal sac and neuroforamina likely encroaching the neural elements. L3-4: Broad-based disc bulging. Facet joint and ligamentum flavum hypertrophy. Reduced AP diameter of the thecal sac and bilateral neuroforamina narrowing likely encroaching the neural elements. L4-5: Broad-based disc bulging. Facet joint and ligamentum flavum hypertrophy. CSF effacement of the thecal sac and bilateral neuroforamina stenosis encroaching, likely compressing the neural elements. L5-S1: Broad-based disc bulging. Facet joint hypertrophy. No gross central spinal canal stenosis. Bilateral, left greater than the right side neuroforamina narrowing. No prevertebral compartment hematoma, mass or fluid collection. There are multiple, large, at least 3 cm hypointense T2 signal abnormality lesions within the lumen of the gallbladder. The common bile duct measures 6 mm. Hyperintense T2 cystic lesions in the kidneys. There is a 3 mm fluid signal characteristic lesion in the tail of pancreas. IMPRESSION: Multilevel spondylosis without acute fracture. Central spinal canal and bilateral neuroforamina stenosis on a multifactorial basis likely compressing the neural elements at L4-5 and to a lesser extent L3-4, L2-3. Osteopenia versus osteoporosis. Cholelithiasis. Assessment & Plan Assessment & Plan (1) Spinal stenosis: Code(s): M48.00 - Spinal stenosis, site unspecified Category: Medical Plan As it was recommended by Dr. De Anda I will schedule her for L4-5 interlaminar epidural steroid injection under sedation in the operating room. There are more resources available there and patient will be able to tolerate positioning better. She is also appeared to be interested in physical therapy so I will send her for physical therapy in [facility]. I will see the patient 1 month after the performance of the epidural steroid injection. Orders: Orders PT Evaluation and Treatment 10/16/25 M48.00 - Spinal stenosis, site unspecified Coding Level of Care Code New Pt Level 3 (68941) Diagnoses Spinal stenosis M48.00
[2025-10-16 15:30] VITALS: BP 162/70; PULSE 93; RESP 16; O2SAT 98; BMI 18.3
== END 2025-10-16 15:57 | disposition home or self-care (01) ==
LOC: HO.PMC 15:23
PROVIDERS: PCP Internal Medicine; Visit Provider Anesthesiology
DX: M48.061 Spinal stenosis, lumbar region without neurogenic claudication (principal)
CPT/HCPCS: 99203

== ENCOUNTER → 2025-10-16 15:22 | Outpatient (BNVA) | payer MEDICARE, SELFPAY | PROVIDERS: PCP Internal Medicine; Visit Provider Anesthesiology | DX: M48.00 Spinal stenosis, site unspecified (principal) | CPT/HCPCS: 99202 ==

== ENCOUNTER 2025-10-21 11:08 | Outpatient (AMB) | payer MEDICARE, SELFPAY ==
--- NOTE | 2025-10-21 11:32 | A.OFFPC_ITS ---
Vital Signs 10/21/25 11:36 Height 5 ft 5 in Weight 116 lb BMI 19.3 BP 126/56 L Blood Pressure Location Lt brachial Position Sitting Respiration 20 Pulse 76 Pulse Source Pulse Oximeter Temp 98.0 F Temp Source Temporal Artery Scan Pulse Oximetry (%) 99 Intake Visit Reasons: HTN, hyperlipidemia, anxiety, OA Polysomnographic Technician Required: No Accompanied by: Self / Same As Patient Allergies Penicillins Allergy (Mild, Verified 10/21/25 11:54) HIVES codeine Allergy (Unknown, Verified 10/21/25 11:54) nausea Medication List - Last Reconciled 10/21/25 by Clifford Bucio MD amlodipine 10 mg PO DAILY 90 days cholecalciferol (vitamin D3) 25 mcg PO DAILY 90 days famotidine 20 mg PO BID 90 days [L[employer]WE[employer] ROLLATOR As directed] lisinopril 40 mg PO DAILY 90 days lorazepam 0.5 mg PO TID PRN 30 days sertraline 25 mg PO DAILY 90 days simethicone (Gas Relief (simethicone)) 125 mg PO ONCE PRN simvastatin 20 mg PO BEDTIME 90 days tramadol 50 mg PO TID PRN Tobacco use date assessed: 06/13/25 Fall risk assessment: No Falls in past year Last assessed Fall Risk: 10/21/25 Dental Screening Dental Screen Date: 06/13/25 HPI HTN, hyperlipidemia, anxiety, OA HPI Details Patient comes in today for her follow up visit States that she feels okay She denies any headaches or dizziness Denies any chest pains, no SOB No nausea/vomiting, no abdominal pain No change in bowel habits noted She continues to experience increased pain in her right hip and on and off numbness in her right thigh - states that these have been bothering her since she fell back in December 2024 She is now seeing pain management and has been referred to PT Pain management is apparently also trying to schedule her for possible cortisone injection to help relieve her hip pain States that she needs several of her Rx refilled She had her follow up labs done last week - to discuss her results [facility] Medical History Osteoporosis Osteopenia Hx of flexible sigmoidoscopy Breast cancer Overweight (BMI 25.0-29.9) Depression Anxiety Venous insufficiency of both lower extremities Nocturnal leg cramps Allergic rhinitis Constipation GERD without esophagitis Vitamin D deficiency Impaired fasting glucose Pure hypercholesterolemia Benign essential hypertension Surgical History History of esophagogastroduodenoscopy (EGD) H/O lumpectomy History of lumpectomy of right breast History of colonoscopy Family History Father Hypertension Stroke Mother Stroke Hypertension Social History Household Members: None Housing: Apartment Housing Other:: Independent living Alcohol intake: current Alcohol intake frequency: holidays/special occasions only Alcohol type: wine Patient Tobacco Use Status: Never used Tobacco e-Cigarette/Vaping Use: Never Used Second Hand Smoke Exposure: Yes service: No Current occupational status: retired Cognitive needs: Yes (cane) Hearing needs: Yes Vision needs: Yes Questionnaire Thrive Questionnaire Date Thrive assessed: 02/05/25 I am a: Patient What is your living situation today?: I have a steady place to live Within the past 12 months, did the food you bought not last and you didn't have the money to get more?: Never true Within the past 12 months, did you worry whether your food would run out before you got money to buy more?: Never true Do you have trouble paying for medicines?: No Do you have trouble getting transportation to medical appointments?: No Do you have trouble paying your heating and electricity bill?: No Do you have trouble taking care of your child, family member or friend?: No Do you have trouble with day-to-day activities such as bathing, preparing meals, shopping, managing finances, etc.?: No Are you currently unemployed and looking for a job?: Yes Are you interested in more education?: No Please select the resources that you would like help with: Food Currently or been in a relationship where the following occur: No concerns reported THRIVE Score: 0 ANURADHA-7 AMB Questionnaire ANURADHA-7 Date ANURADHA - 7 assessed: 06/13/25 Source: Developed by Drs. Woodrow Ortega, Kaitlyn Winters, Ihsan Novoa and colleagues, with an educational kirby from [employer]. Review of Systems Const Denies chills, Denies fatigue, Denies fever(s) and Denies headache(s) ENT Denies dysphagia, Denies dizziness, Denies otalgia, Denies headache(s), Denies neck pain, Denies odynophagia and Denies sore throat Card Denies chest pain, Denies palpitations and Denies dyspnea Resp Denies chest congestion, Denies cough and Denies dyspnea GI Denies abdominal pain, Reports constipation (on and off), Denies dysphagia, Denies heartburn, Denies diarrhea, Denies nausea, Denies odynophagia and Denies vomiting Denies nocturia, Denies dysuria, Reports urinary incontinence and Denies urinary urgency Musc Reports back pain (over the lower back), Reports arthralgias (in the right hip), Reports muscle weakness (over both legs at times) and Denies neck pain Skin/Breast Denies rash Neuro Denies dizziness and Denies headache(s) Psych Reports anxiety (chronic - worries constantly about everything) Endo Denies fatigue and Denies palpitations Physical exam (Primary Care) Vital Signs: Last Vital Signs Temp 98.0 F 10/21/25 11:36 Pulse 76 10/21/25 11:36 Resp 20 10/21/25 11:36 BP 126/56 L 10/21/25 11:36 Pulse Ox 99 10/21/25 11:36 BMI result Body Mass Index 19.3 Tobacco/Smoking Status: Tobacco use Status Tobacco use date assessed 06/13/25 10/21/25 11:35 Patient Tobacco Use Status Never used Tobacco 10/21/25 11:35 e-Cigarette/Vaping Use Never Used 10/21/25 11:35 Thrive Assessment: Date of Thrive Assessment Date Thrive assessed 02/05/25 10/21/25 11:35 Currently or been in a relationship where the following occur: No concerns reported Const General: no acute distress, alert and anxious HENMT Ears: TM's normal bilaterally and EAC's normal Throat: Yes posterior oropharynx normal and Yes tonsils normal Neck Neck: Yes supple and No lymphadenopathy Thyroid: Thyroid normal Resp Auscultation: clear to auscultation bilaterally, no rales and no wheezes Cardio Rate: regular rate Rhythm: regular rhythm Heart sounds: no murmurs GI Palpation (GI): Soft to palpation and nontender Auscultation: normal bowel sounds General: Yes no CVA tenderness Back/Spine/Pelvis Back: no CVA tenderness Thoracic/Lumbar Spine: lumbar spinal tenderness Sacroiliac joints: on the right tender to palpation Skin Rashes: no rashes Extrem General: Yes no clubbing, cyanosis or edema Right lower extremity: hip/thigh Details: tenderness Location: of the hip Psych Affect: Anxious affect present Results Reviewed Results Reviewed: Laboratory Tests 10/13/25 10/13/25 13:40 13:45 WBC 8.9 Hgb 13.8 Hct 41.7 Plt Count 355 Sodium 139 Potassium 3.9 Creatinine 0.56 Estimated GFR > 60 Fasting Glucose 113 H Calcium 10.4 H AST 29 ALT 21 Triglycerides 92 Cholesterol 174 LDL Cholesterol, Calc 91 HDL Cholesterol 65 25-OH Vitamin D Total 67.5 TSH 0.86 Ur Specific [place] 1.020 Urine Protein Trace Urine Glucose (UA) Negative Urine Blood Negative Urine Nitrite Negative Ur Leukocyte Esterase Trace H Coding Level of Care Code Est Pt Level 4 (75108) Diagnoses Pure hypercholesterolemia E78.00 Benign essential hypertension I10 Impaired fasting glucose R73.01 Vitamin D deficiency E55.9 Osteoporosis without current pathological fracture, unspecified osteoporosis type M81.0 Osteoporosis type: unspecified Presence of current pathological fracture: without current pathological fracture GERD without esophagitis K21.9 Constipation, unspecified constipation type K59.00 Constipation type: unspecified constipation type Calculus of gallbladder without cholecystitis without obstruction K80.20 Cholelithiasis location: gallbladder Cholecystitis presence: without cholecystitis Biliary obstruction: without biliary obstruction Allergic rhinitis, unspecified seasonality, unspecified trigger J30.9 Allergic rhinitis trigger: unspecified Allergic rhinitis seasonality: unspecified Venous insufficiency of both lower extremities I87.2 History of breast cancer Z85.3 Pain of right lower extremity M79.604 Unsteady gait R26.81 Anxiety F41.9 Episode of recurrent major depressive disorder, unspecified depression episode severity F33.9 Depression Type: major depressive disorder Major depression recurrence: recurrent Active/Remission status: currently active Major depression episode severity: unspecified Bilateral hearing loss, unspecified hearing loss type H91.93 Hearing loss type: unspecified Laterality: bilateral Assessment & Plan Assessment & Plan (1) Pure hypercholesterolemia: Code(s): E78.00 - Pure hypercholesterolemia, unspecified Category: Medical Plan: Results of her labs done last week reviewed and discussed with patient Reinforced low cholesterol diet Continue Simvastatin 20 mg QD Will recheck her labs and fasting lipids in 4 months for follow-up (2) Benign essential hypertension: Code(s): I10 - Essential (primary) hypertension Category: Medical Plan: Reinforced low-sodium diet -? goal is systolic BP of at least 140 mm or less Continue Lisinopril 40 mg QD and Amlodipine 10 mg QD Patient is reminded to continue monitoring her blood pressure regularly (3) Impaired fasting glucose: Code(s): R73.01 - Impaired fasting glucose Category: Medical Plan: Her FBS was again elevated at 113 mg/dl on her recent labs; her HgbA1c was normal at 5.1% when previously checked Reinforced low calorie/low carb diet; exercise as tolerated (4) Vitamin D deficiency: Code(s): E55.9 - Vitamin D deficiency, unspecified Category: Medical Plan: Continue Vitamin D3 1000 units QD (5) Osteoporosis: Code(s): M81.0 - Age-related osteoporosis without current pathological fracture Category: Medical Qualifiers: Osteoporosis type: unspecified Presence of current pathological fracture: without current pathological fracture Qualified Code(s): M81.0 - Age- related osteoporosis without current pathological fracture Plan: Her repeat BMD done in February 2025 revealed (+) significant decline in her overall BMD from previous, with the BMD in her left hip much worse than in other areas - her left total hip T-score is now at -3.3 and with a Z-score of -1.2, indicative with osteoporosis Fall precautions reinforced and patient is encouraged to continue taking her daily Calcium and Vitamin D supplements Have discussed with her potential treatment options, including oral bisphosphonates but due to her preexisting anxiety, she feels very hesitant about starting on additional medications and would like some time to consider this She is currently very limited in her mobility due to her right hip issues and has been mostly sedentary over the past few years, in part due to her age and declining physical issues so physical activity/exercises at this time would be impractical (6) GERD without esophagitis: Code(s): K21.9 - Gastro-esophageal reflux disease without esophagitis Category: Medical Plan: Dietary restrictions reinforced Continue Famotidine 20 mg BID as needed (7) Constipation: Code(s): K59.00 - Constipation, unspecified Category: Medical Qualifiers: Constipation type: unspecified constipation type Qualified Code(s): K59.00 - Constipation, unspecified Plan: She is again encouraged on increased oral fluids and dietary fiber intake Continue Senna 8.6 mg 1-2 tablets once a day as needed and Miralax 17 gm QD Patient states that she drinks prune juice first when she starts getting constipated and this helps keep her symptoms somewhat better controlled She had repeat colonoscopy done in April 2024 - colonoscopy came out normal although recent imaging studies revealed (+) gallstones Follow up with GI as scheduled (8) Cholelithiasis: Code(s): K80.20 - Calculus of gallbladder without cholecystitis without obstruction Category: Medical Qualifiers: Cholelithiasis location: gallbladder Cholecystitis presence: without cholecystitis Biliary obstruction: without biliary obstruction Qualified Code(s): K80.20 - Calculus of gallbladder without cholecystitis without obstruction Plan: This was seen incidentally on recent imaging studies and patient was referred by GI to surgery for further evaluation and consideration for laparoscopic cholecystectomy as she was advised that large gallstones pose a higher risk for malignancy It does not appear that patient has been scheduled yet to see surgery She was scheduled to see Dr. Haddad for GI follow up on 04/10/2025 but it appears that she did not keep that appointment (9) Allergic rhinitis: Code(s): J30.9 - Allergic rhinitis, unspecified Category: Medical Qualifiers: Allergic rhinitis trigger: unspecified Allergic rhinitis seasonality: unspecified Qualified Code(s): J30.9 - Allergic rhinitis, unspecified Plan: Continue Fluticasone 50 mcg nasal spray 1 spray into each nostril once a day (10) Venous insufficiency of both lower extremities: Code(s): I87.2 - Venous insufficiency (chronic) (peripheral) Category: Medical Plan: She is again encouraged to continue to keep her legs and feet elevated as often as she can to help minimize her pedal edema Patient also wears compression stockings, which she states help (11) History of breast cancer: Code(s): Z85.3 - Personal history of malignant neoplasm of breast Category: Medical Plan: 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 Ultrasound-guided core biopsy done on 10/04/2010 revealed (+) ductal carcinoma in situ, ER/LA positive She subsequently underwent left breast lumpectomy and left axillary sentinel node biopsy in October 2010 - pathology revealed DCIS without evidence of inv asive tumor She received adjuvant radiotherapy and was on Tamoxifen from October 2010 to October 2013 She was diagnosed then with stage I right breast carcinoma in September 2013 - also noted on routine mammogram She underwent lumpectomy on 10/01/2014 which revealed a 0.7 cm invasive ductal carcinoma grade 1 with no lymphovascular invasion - stage was [id number]. She then underwent radiation therapy and was switched from Tamoxifen therapy to Letrozole beginning on 10/25/2013 and completed 5 years of letrozole in October 2019 She continues to follow up with oncology regularly for surveillance and goes for her yearly mammogram as scheduled (12) Pain of right lower extremity: Code(s): M79.604 - Pain in right leg Category: Medical Plan: Patient still has some pain and discomfort in her right leg, especially when she starts walking Exam done in the office reveals no appreciable tenderness over the right hip, lumbar spine, SI joints and right gluteal area X-rays of the pelvis, right hip and right thigh done back in October 2024 revealed (+) severe degenerative changes of the right hip and patellofemoral joint Repeat x-rays of the right hip done in February 2025 revealed similar findings - severe, end-stage arthritis of the right hip joint Follow up with orthopedics as scheduled She has also been seeing pain management recently and has been referred to PT and is apparently being scheduled for a cortisone injection as well sometime next month (13) Unsteady gait: Code(s): R26.81 - Unsteadiness on feet Category: Medical Plan: This is likely multifactorial, including due to her lower back and hip issues Patient feels that this has improved somewhat with physical therapy She is advised that we can refer her again to PT on an as-needed basis (14) Anxiety: Code(s): F41.9 - Anxiety disorder, unspecified Category: Medical Plan: Her anxiety appears to be somewhat better controlled at present compared to previous Continue Sertraline 25 mg Q AM and Lorazepam 0.5 mg 1 tablet 2 to 3 times a day as needed Follow-up with her counselor /therapist as scheduled (15) Depression: Code(s): F32.9 - Major depressive disorder, single episode, unspecified Category: Medical Qualifiers: Depression Type: major depressive disorder Major depression recurrence: recurrent Active/Remission status: currently active Major depression episode severity: unspecified Qualified Code(s): F33.9 - Major depressive disorder, recurrent, unspecified Plan: States that she has been doing well with this lately and she continues to follow-up with her counselor / therapist regularly She has been prescribed Escitalopram in the past but patient declined the Rx but is now on Sertraline Continue Sertraline 25 mg QD (16) Hearing loss: Code(s): H91.90 - Unspecified hearing loss, unspecified ear Category: Medical Qualifiers: Hearing loss type: unspecified Laterality: bilateral Qualified Code(s): H91.93 - Unspecified hearing loss, bilateral Plan: Patient is strongly encouraged to pursue getting her hearing aids KEE and start wearing them all the time as it is getting more time consuming and more difficult to have a conversation with her when she comes in for her appointment, especially with her severe anxiety and tendency to have to keep repeating things again and again to her Plan Follow up in 4 months Orders: Orders Complete Blood Count Auto Diff 4 Months D64.9 - Anemia, unspecified Lipid Panel 4 Months E78.00 - Pure hypercholesterolemia, unspecified TSH reflex Free T4 4 Months E78.00 - Pure hypercholesterolemia, unspecified Vitamin D 25-OH Total 4 Months E55.9 - Vitamin D deficiency, unspecified Comprehensive [place]. Panel Fast 4 Months E78.00 - Pure hypercholesterolemia, unspecified Hemoglobin A1c 4 Months R73.01 - Impaired fasting glucose UA CC w/rflx Micro + Cult 4 Months R30.0 - Dysuria Medications: Refilled amlodipine 10 mg PO DAILY 90 tabs 1RF 90 days I10 - Essential (primary) hypertension lisinopril 40 mg PO DAILY 90 tabs 1RF 90 days I10 - Essential (primary) hypertension simvastatin 20 mg PO BEDTIME 90 tabs 1RF 90 days E78.00 - Pure hypercholesterolemia, unspecified famotidine 20 mg PO BID 180 tabs 1RF 90 days sertraline Take 1 tablet daily every morning for anxiety - has to be taken everyday for it to be effective 25 mg PO DAILY 90 tabs 1RF anxiety 90 days lorazepam 0.5 mg PO TID PRN 90 tabs 1RF anxiety 30 days
[2025-10-21 11:36] VITALS: BP 126/56; PULSE 76; RESP 20; TEMP 36.7; O2SAT 99; BMI 19.3
== END 2025-10-21 12:13 | disposition home or self-care (01) ==
PROVIDERS: PCP Internal Medicine; Visit Provider Internal Medicine
DX: E78.00 Pure hypercholesterolemia, unspecified (principal); I10 Essential (primary) hypertension; R73.01 Impaired fasting glucose; E55.9 Vitamin D deficiency, unspecified; M81.0 Age-related osteoporosis without current pathological fracture; K21.9 Gastro-esophageal reflux disease without esophagitis; K59.00 Constipation, unspecified; K80.20 Calculus of gallbladder without cholecystitis without obstruction; J30.9 Allergic rhinitis, unspecified; I87.2 Venous insufficiency (chronic) (peripheral); Z85.3 Personal history of malignant neoplasm of breast; M79.604 Pain in right leg; R26.81 Unsteadiness on feet; F41.9 Anxiety disorder, unspecified; F33.9 Major depressive disorder, recurrent, unspecified; H91.93 Unspecified hearing loss, bilateral

== ENCOUNTER → 2025-10-21 11:08 | Outpatient (BNVA) | payer MEDICARE, SELFPAY | PROVIDERS: PCP Internal Medicine; Visit Provider Internal Medicine | DX: I10 Essential (primary) hypertension (principal); E78.5 Hyperlipidemia, unspecified; F41.9 Anxiety disorder, unspecified; E78.00 Pure hypercholesterolemia, unspecified; R73.01 Impaired fasting glucose; E55.9 Vitamin D deficiency, unspecified; M81.0 Age-related osteoporosis without current pathological fracture; K21.9 Gastro-esophageal reflux disease without esophagitis; K59.00 Constipation, unspecified; K80.20 Calculus of gallbladder without cholecystitis without obstruction; J30.9 Allergic rhinitis, unspecified; I87.2 Venous insufficiency (chronic) (peripheral); M79.604 Pain in right leg; R26.81 Unsteadiness on feet; F33.9 Major depressive disorder, recurrent, unspecified; H91.93 Unspecified hearing loss, bilateral; Z85.3 Personal history of malignant neoplasm of breast | CPT/HCPCS: 99212 ==